=== PATIENT | male | born 1950 | race African-American/Black ===

== ENCOUNTER 2016-12-25 10:42 | Emergency (ER) | payer MEDICAID ==
[~2016-12-25] VITALS: Ht 177.8 cm; Wt 142.9 kg
[~2016-12-25 10:42] MED LIST: 'PARAFON FORTE500 M1 PO; ACTOS45 MG PO; ADVAIR 250/501 EA INH; AMOXICILLIN500 M2 PO; ANAPROX DS550 MG PO; ATORVASTATIN CA10 M1 PO; CATAFLAM50 MG PO; CIPRO500 MG PO; CIPROFLOXACIN500 MG PO; CLARITIN10 MG PO; DARVOCET N 1001 TAB PO; DAYPRO600 M1 PO; DIFLUCAN100 MG PO; ENALAPRIL MALEA10 MG PO; FLAGYL500 MG PO; FUROSEMIDE20 M1 PO; GLUCOPHAGE1000 MG PO; KEFLEX500 MG PO; LANTUS100 U/ML SC; LEVSIN0.125 M1 SL; LOTRISONE 0.05%1 CRE TP; METFORMIN HCL1000 MG PO; MYCOLOG-II 10001 CRE TP; NAPROSYN500 MG PO; NATURE'S BLEN2000 IU PO; NEXIUM40 MG PO; NORCO 10-325 T1 EACH PO; NOVOLIN 70100 UNIT/1 SQ; OMEPRAZOLE D/R20 MG PO; PREDNISONE10 MG PO; PREDNISONE20 MG PO; PROAIR HFA0.09 MG/AC INH; PROAIR HFA8.5 GM IH; Peridex 473 ML473 ML PO; ROBAXIN500 MG PO; ROBAXIN750 MG PO; SINGULAIR10 MG PO; VIBRAMYCIN100 MG PO; ZITHROMAX Z PA250 MG PO; ZITHROMAX250 MG PO
[2016-12-25 10:49] VITALS: BP 180/68
[2016-12-25 11:15] LABS: BASO % 0.5 % (0.0-1.0); EOS # 0.2 10*3/uL (0.0-0.4); EOS % 2.5 % (1.0-4.0); HEMATOCRIT 40.3 % (42.0-52.0); HEMOGLOBIN 13.5 g/dl (14.0-18.0); LYMPH # 2.3 10*3/uL (1.3-4.4); LYMPH % 26.4 % (27.0-41.0); MEAN CELL VOLUME 77.4 fl (80.0-94.0); MEAN CORPUSCULAR HGB 25.9 pg (27.0-31.0); MEAN CORPUSCULAR HGB CONC 33.5 g/dl (33.0-37.0); MONO # 0.9 10*3/uL (0.1-1.0); MONO % 10.8 % (3.0-9.0); NEUT # 5.1 10*3/uL (2.3-7.9); NEUT % 59.6 % (47.0-73.0); PLATELET COUNT AUTOMATED 242 10*3/uL (130-400); RED BLOOD COUNT 5.21 10*6/uL (4.50-5.90); RED CELL DISTRI WIDTH 16.4 % (0-14.5); WHITE BLOOD COUNT 8.6 10*3/uL (4.8-10.8)
[2016-12-25 11:32] LABS: POTASSIUM 4.4 mmol/L (3.5-5.1); TROPONIN I 0.017 ng/ml (<0.045)
[2016-12-25 14:16] LABS: BILIRUBIN NEGATIVE (NEGATIVE); BLOOD TRACE-LYSED (NEGATIVE); CLARITY CLEAR (CLEAR); COLOR YELLOW (YELLOW); GLUCOSE 3+ (NEGATIVE); KETONE NEGATIVE (NEGATIVE); LEUKO ESTERASE NEGATIVE (NEGATIVE); NITRITE NEGATIVE (NEGATIVE); PROTEIN NEGATIVE (NEGATIVE); UROBILINOGEN 0.2 E.U./dl (0.2-1.0)
[2016-12-25 14:23] LABS: BACTERIA TRACE; EPITHELIAL CELLS 0-2; RBC 0-2 rbc/hpf (0-2); URINE REFLEX COMMENT NO (NO)
[2016-12-25] MEDS ORDERED: PREDNISONE20 M1 PO (14:33)
[2016-12-25 14:35] LABS: ALBUMIN 3.1 gm/dl (3.1-4.5); ALKALINE PHOSPHATASE 64 U/L (45-117); BILIRUBIN, DIRECT < 0.1 mg/dL (0.0-0.2); BILIRUBIN, TOTAL 0.2 mg/dl (0.2-1.0); SGOT/AST 18 IU/L (3-35); SGPT/ALT 27 U/L (12-78)
[2016-12-25 14:39] LABS: HEMOGLOBIN A1c 11.4 % (4.8-5.6)
== END 2016-12-25 15:18 | disposition left against medical advice (07) ==
LOC: ED 10:42
PROVIDERS: Emergency Medicine
DX: J44.1 Chronic obstructive pulmonary disease with (acute) exacerbation (principal); N17.9 Acute kidney failure, unspecified; I25.10 Atherosclerotic heart disease of native coronary artery without angina pectoris; E11.65 Type 2 diabetes mellitus with hyperglycemia; Z79.4 Long term (current) use of insulin; Z79.899 Other long term (current) drug therapy

== ENCOUNTER 2017-01-03 09:32 | Inpatient (IN) | payer MEDICAID ==
[~2017-01-03] VITALS: Ht 152.4 cm; Wt 147.5 kg
--- NOTE | ~2017-01-03 | CON ---
[place], [place] REPORT OF CONSULTATION [id number] UNIT #: [id number] ROOM: 522 DOCTOR: AGUS PARKER MD BIRTHDATE: [birth year] DOS: 01/04/2017 PULMONARY CONSULTATION EVALUATION AND MANAGEMENT REQUESTING PHYSICIAN: The consultation requested for this patient by hospitalist services. REASON FOR CONSULTATION: To assess the patient for obstructive sleep apnea disorder. HISTORY OF PRESENT ILLNESS: A 66 years old -Samoan male who has been admitted to the hospital under care of the hospitalist service of the patient on 01/03/2017. The patient has been admitted to the hospital as he has been complaining of symptoms of having increased shortness of breath, which has been ongoing for the past several days and noted chronic shortness of breath for several years as well. He does have mild coughing without any sputum expectoration. The patient does complain of some wheezing as well and tightness in the chest. Denies symptoms of acute chest pain. Denies symptoms of hemoptysis. He had been admitted to the hospital from yesterday and started for the medical management of COPD exacerbation. The patient has a known history of obstructive sleep apnea disorder as well and stated his pressure needs to be raised for this patient for the management of sleep apnea disorder. He has been noted somewhat poor historian and unable to give me all the history more accurately. REVIEW OF SYSTEMS: CONSTITUTIONAL SYMPTOMS: Complaining of symptoms of fatigue and tiredness. Denies fever or chills. EYES: Denies burning, redness, or tenderness. EARS, NOSE, AND THROAT SYMPTOMS: No sore throat, hoarseness, otalgia, postnasal drainage. CARDIOVASCULAR SYSTEM: Denies anginal pain, edema, pain of the lower extremities. GASTROINTESTINAL SYMPTOM: Denies dysphagia, nausea, vomiting, diarrhea, abdominal pain, hematemesis, melena or hematochezia. History of chronic severe obesity noted without any abnormal weight loss. GENITOURINARY SYMPTOM: Denies dysuria, suprapubic pain, hematuria. MUSCULOSKELETAL SYMPTOM: Denies acute joint pain, redness, or tenderness. SKIN: No lesions or rashes. CENTRAL NERVOUS SYSTEM: Denies dizziness, headache, diplopia or seizures. Remaining systems were reviewed with the patient, they were noted all negative. PAST MEDICAL HISTORY: Noted with history of: 1. COPD for this patient. 2. Coronary artery disease. 3. Obstructive sleep apnea disorder. 4. Type 2 diabetes mellitus. 5. Morbid obesity. SOCIAL HISTORY: The patient denies history of alcohol use, tobacco or illicit [place], [place] REPORT OF CONSULTATION NAME: PILO KOROMA UNIT #: [id number] ROOM: 522 DOCTOR: AGUS PARKER MD BIRTHDATE: [birth year] drug use. He is currently and has 2 children. FAMILY HISTORY: Father at the age of 5050 years old, complication of stroke. The mother living, of 87 years old. PAST SURGICAL HISTORY: History of T and A. HOME MEDICATIONS: Listed as use of ProAir HFA inhaler, Lipitor, Parafon Forte, vitamin D, enalapril, NPH insulin, loratadine, metformin, Naproxen, omeprazole, prednisone recent prescription given for this patient for the management of acute respiratory symptom management. DRUG ALLERGY HISTORY: Noted as no known drug allergies. PHYSICAL EXAMINATION: GENERAL: A 66 years old -Samoan male, currently sitting side of bed without any distress. Height of 5 feet 9 inches, weight of , BMI 63.5. VITAL SIGNS: For the patient which has been recorded showed normal temperature, respiratory rate 18-25, heart rate of 97-83, blood pressure 170/90 of the patient 140/80. Intake for the patient is 1000, the output was 700 mL approximately. Pulse ox saturation on room air 94% saturation. HEENT: Examination shows chronic severe obesity. NECK: Supple. Head was atraumatic and neck was severely obese. Severe reduction of posterior pharyngeal space. CARDIOVASCULAR SYSTEM: S1, S2 audible. LUNGS: The patient was noted without any crackles. Mild expiratory wheezing noted in the lungs bilaterally. ABDOMEN: Soft, obese, nontender. EXTREMITIES: Showed chronic obesity without any edema, clubbing or cyanosis. CENTRAL NERVOUS SYSTEM: Cranial nerves 2-12 intact. No focal deficit. MUSCULOSKELETAL SYMPTOM: Does not show any acute deformities. LABORATORY DATA: CBC yesterday of the patient was noted essentially normal CBC except very mild anemia, hemoglobin 13.3. The PT/PTT were noted yesterday as normal. CMP that was done yesterday, BUN 31, creatinine 1.68, glucose 304. Remaining CMP was normal. The chest x-ray, 1 view, which was done yesterday in the Emergency Room of the patient was noted without any acute pulmonary infiltration. CBC this morning: WBC count 11.3, otherwise CBC normal. CMP this morning, BUN 33, creatinine 1.39, glucose 420, chloride of 97. IMPRESSION: 1. The patient who had been currently admitted to the hospital noted failed outpatient treatment for the acute exacerbation of "chronic obstructive pulmonary disease" for this patient or bronchial asthma. Lack of any tobacco use in the past. 2. History of obstructive sleep apnea disorder suboptimally treated for this patient, current CPAP/BiPAP from home. 3. The patient with hyperglycemia. 4. Acute kidney injury of the patient most likely prerenal in origin of the patient noted partial improvement from yesterday. [place], [place] REPORT OF CONSULTATION NAME: PILO KOROMA UNIT #: [id number] ROOM: 522 DOCTOR: AGUS PARKER MD BIRTHDATE: [birth year] 5. History of essential hypertension, diabetes mellitus as well. PLAN OF TREATMENT: Continuation of the bronchodilators, oxygen supplementation, reduction of corticosteroids, bronchodilators. The patient was empirically started on the BiPAP last night. The patient was asked about making a discharge for the patient following discharge from the hospital to make any further adjustment in the management of sleep apnea disorder after that. Other supportive treatment, plan of management at this time to be continued. Usual care, other supportive care and therapy, plan of management. Usual care. Thanks for allowing me to participate in the care of this patient. AGUS JORGE MD CM:CONSTR:REPORT OF CONSULTATION 1252 01/05/17 0144 interface
[~2017-01-03 09:32] MED LIST changes: +PREDNISONE20 M1 PO
[2017-01-03 09:39] VITALS: BP 153/77
[2017-01-03 10:00] LABS: BASO # 0.1 10*3/uL (0.0-0.1); BASO % 0.7 % (0.0-1.0); EOS # 0.2 10*3/uL (0.0-0.4); EOS % 2.9 % (1.0-4.0); HEMOGLOBIN 13.6 g/dl (14.0-18.0); LYMPH # 1.8 10*3/uL (1.3-4.4); LYMPH % 25.1 % (27.0-41.0); MEAN CELL VOLUME 78.8 fl (80.0-94.0); MEAN CORPUSCULAR HGB 26.2 pg (27.0-31.0); MEAN CORPUSCULAR HGB CONC 33.2 g/dl (33.0-37.0); MEAN PLATELET VOLUME 10.7 fl (9.6-12.3); MONO # 0.8 10*3/uL (0.1-1.0); MONO % 11.3 % (3.0-9.0); NEUT # 4.3 10*3/uL (2.3-7.9); NEUT % 59.7 % (47.0-73.0); PLATELET COUNT AUTOMATED 244 10*3/uL (130-400); RED CELL DISTRI WIDTH 16.3 % (0-14.5); WHITE BLOOD COUNT 7.1 10*3/uL (4.8-10.8)
[2017-01-03 10:11] LABS: INTERNATIONAL NORM RATIO 0.9 (2.0-3.5); PROTHROMBIN TIME 9.9 SECONDS (9.0-12.4)
[2017-01-03 10:15] VITALS: BP 150/70
[2017-01-03 10:15] LABS: ALBUMIN 3.3 gm/dl (3.1-4.5); BILIRUBIN, TOTAL 0.2 mg/dl (0.2-1.0); C-REACTIVE PROTEIN 2.99 MG/DL (0-0.3); CKMB 3.9 ng/ml (0.5-3.6); MAGNESIUM 1.9 mg/dL (1.5-2.1); POTASSIUM 4.7 mmol/L (3.5-5.1); TOTAL PROTEIN 7.5 gm/dL (6.4-8.2); TROPONIN I 0.019 ng/ml (<0.045)
[2017-01-03 11:00] VITALS: BP 148/80
[2017-01-03 12:20] VITALS: BP 140/80
[2017-01-03 16:00] VITALS: BP 163/90
[2017-01-03 20:00] VITALS: BP 122/54; BP 135/73
[2017-01-04] VITALS: BP 164/82
[2017-01-04 06:47] LABS: BASO % 0.1 % (0.0-1.0); HEMATOCRIT 43.2 % (42.0-52.0); HEMOGLOBIN 14.4 g/dl (14.0-18.0); IG # 0.1 10*3/uL (0.0-0.1); LYMPH # 1.2 10*3/uL (1.3-4.4); LYMPH % 10.6 % (27.0-41.0); MEAN CELL VOLUME 77.8 fl (80.0-94.0); MEAN CORPUSCULAR HGB 25.9 pg (27.0-31.0); MEAN CORPUSCULAR HGB CONC 33.3 g/dl (33.0-37.0); MEAN PLATELET VOLUME 11.1 fl (9.6-12.3); MONO # 0.6 10*3/uL (0.1-1.0); MONO % 5.7 % (3.0-9.0); NEUT # 9.4 10*3/uL (2.3-7.9); PLATELET COUNT AUTOMATED 290 10*3/uL (130-400); RED BLOOD COUNT 5.55 10*6/uL (4.50-5.90); RED CELL DISTRI WIDTH 16.1 % (0-14.5); WHITE BLOOD COUNT 11.3 10*3/uL (4.8-10.8)
[2017-01-04 07:21] LABS: ALBUMIN 3.6 gm/dl (3.1-4.5); BILIRUBIN, TOTAL 0.3 mg/dl (0.2-1.0); BUN 33 mg/dl (7-24); CARBON DIOXIDE 27 mmol/L (21-32); CHLORIDE 97 mmol/L (98-107); EST GLOM FILT AFRICAN AMERICAN > 60 ml/min; GLUCOSE 420 mg/dL (65-99); MAGNESIUM 2.1 mg/dL (1.5-2.1); PHOSPHOROUS 4.8 mg/dL (2.5-4.9); POTASSIUM 4.7 mmol/L (3.5-5.1); SGOT/AST 14 IU/L (3-35); SGPT/ALT 27 U/L (12-78); SODIUM 136 mmol/L (136-145)
[2017-01-04 07:29] LABS: ALKALINE PHOSPHATASE 68 U/L (45-117); THYROID STIM HORMONE (HS) 0.658 uIU/ml (0.358-4.75)
[2017-01-04 07:31] LABS: PROTHROMBIN TIME 10.1 SECONDS (9.0-12.4)
[2017-01-04 07:41] LABS: VITAMIN D, 25-HYDROXY 34.3 ng/mL (30-100)
[2017-01-04 07:42] LABS: FOLIC ACID 12.29 ng/mL (>5.38)
[2017-01-04 08:42] VITALS: BP 170/90
== END 2017-01-04 12:27 | disposition left against medical advice (07) | DRG 190 ==
LOC: ED 09:32 → 5E 11:54 → EDHOLD 11:54 → 5E 12:35
PROVIDERS: Emergency Medicine; Internal Medicine
DX: J44.1 Chronic obstructive pulmonary disease with (acute) exacerbation (principal); N17.0 Acute kidney failure with tubular necrosis; E44.0 Moderate protein-calorie malnutrition; Z68.44 Body mass index [BMI] 60.0-69.9, adult; E11.65 Type 2 diabetes mellitus with hyperglycemia; N18.3 Chronic kidney disease, stage 3 (moderate); D50.9 Iron deficiency anemia, unspecified; Z53.21 Procedure and treatment not carried out due to patient leaving prior to being seen by health care provider; I25.10 Atherosclerotic heart disease of native coronary artery without angina pectoris; G47.33 Obstructive sleep apnea (adult) (pediatric); E66.01 Morbid (severe) obesity due to excess calories; I25.2 Old myocardial infarction; Z82.3 Family history of stroke; Z83.3 Family history of diabetes mellitus; Z79.84 Long term (current) use of oral hypoglycemic drugs; Z79.899 Other long term (current) drug therapy; Z79.4 Long term (current) use of insulin

== ENCOUNTER 2017-01-19 07:03 | Emergency (ER) | payer MEDICAID ==
[~2017-01-19] VITALS: Ht 172.7 cm; Wt 142.9 kg
[2017-01-19 07:14] VITALS: BP 146/62
[2017-01-19] MEDS ORDERED: GLIMEPIRIDE4 M1 PO (07:16)
== END 2017-01-19 07:49 | disposition home or self-care (01) ==
LOC: ED 07:03
DX: N48.89 Other specified disorders of penis (principal); E11.65 Type 2 diabetes mellitus with hyperglycemia; Z95.1 Presence of aortocoronary bypass graft; J44.9 Chronic obstructive pulmonary disease, unspecified; N18.9 Chronic kidney disease, unspecified; Z79.899 Other long term (current) drug therapy

== ENCOUNTER → 2017-03-16 | Outpatient (CLI) | payer MEDICAID ==
[~2017-03-16] MED LIST changes: +GLIMEPIRIDE4 M1 PO
[2017-03-16 10:50] LABS: BILIRUBIN NEGATIVE (NEGATIVE); BLOOD TRACE-INTACT (NEGATIVE); CLARITY CLEAR (CLEAR); COLOR YELLOW (YELLOW); GLUCOSE 2+ (NEGATIVE); KETONE NEGATIVE (NEGATIVE); LEUKO ESTERASE NEGATIVE (NEGATIVE); NITRITE NEGATIVE (NEGATIVE); PROTEIN TRACE (NEGATIVE); SPECIFIC GRAVITY <= 1.005 (1.005-1.030); UROBILINOGEN 0.2 E.U./dl (0.2-1.0)
[2017-03-16 10:51] LABS: BASO # 0.1 10*3/uL (0.0-0.1); BASO % 0.6 % (0.0-1.0); EOS # 0.2 10*3/uL (0.0-0.4); EOS % 2.3 % (1.0-4.0); HEMATOCRIT 42.2 % (42.0-52.0); HEMOGLOBIN 14.2 g/dl (14.0-18.0); LYMPH # 2.5 10*3/uL (1.3-4.4); LYMPH % 30.6 % (27.0-41.0); MEAN CELL VOLUME 77.1 fl (80.0-94.0); MEAN CORPUSCULAR HGB CONC 33.6 g/dl (33.0-37.0); MEAN PLATELET VOLUME 10.6 fl (9.6-12.3); MONO % 12.1 % (3.0-9.0); NEUT # 4.5 10*3/uL (2.3-7.9); NEUT % 54.2 % (47.0-73.0); PLATELET COUNT AUTOMATED 231 10*3/uL (130-400); RED BLOOD COUNT 5.47 10*6/uL (4.50-5.90); WHITE BLOOD COUNT 8.3 10*3/uL (4.8-10.8)
[2017-03-16 10:58] LABS: URINE TP/CRE RATIO 0.5 (<0.21)
[2017-03-16 11:07] LABS: RBC 0-2 rbc/hpf (0-2); WBC 0-2 wbc/hpf (0-5)
[2017-03-16 11:26] LABS: ALBUMIN 3.5 gm/dl (3.1-4.5); MAGNESIUM 1.7 mg/dL (1.5-2.1); PHOSPHOROUS 3.2 mg/dL (2.5-4.9); POTASSIUM 4.4 mmol/L (3.5-5.1)
[2017-03-16 11:48] LABS: VITAMIN D, 25-HYDROXY 27.1 ng/mL (30-100)
== END | disposition home or self-care (01) ==
LOC: LAB 10:21
PROVIDERS: Internal Medicine Nephrology
DX: E11.22 Type 2 diabetes mellitus with diabetic chronic kidney disease (principal); N18.3 Chronic kidney disease, stage 3 (moderate)

== ENCOUNTER → 2017-07-24 | Outpatient (CLI) | payer MEDICARE ==
[2017-07-24 09:31] LABS: HEMATOCRIT 41.4 % (42.0-52.0); RETICULOCYTE % 2.11 % (0.50-2.50)
[2017-07-24 09:35] LABS: BILIRUBIN NEGATIVE (NEGATIVE); BLOOD 1+ (NEGATIVE); CLARITY CLEAR (CLEAR); COLOR YELLOW (YELLOW); GLUCOSE 1+ (NEGATIVE); KETONE NEGATIVE (NEGATIVE); LEUKO ESTERASE NEGATIVE (NEGATIVE); NITRITE NEGATIVE (NEGATIVE); PH 6.5 (5.0-9.0)
[2017-07-24 09:48] LABS: ALBUMIN 3.2 gm/dl (3.1-4.5); ALKALINE PHOSPHATASE 82 U/L (45-117); BILIRUBIN, DIRECT < 0.1 mg/dL (0.0-0.2); BUN 22 mg/dl (7-24); CHLORIDE 100 mmol/L (98-107); CHOLESTEROL 116 mg/dL (<200); CREATININE 1.41 mg/dL (0.70-1.30); EPITHELIAL CELLS 0-2; HDL CHOLESTEROL 41 mg/dl (40-60); IRON 53 ug/dL (65-175); LDL CHOLESTEROL 46 mg/dL (9-159); POTASSIUM 4.6 mmol/L (3.5-5.1); RBC 0-2 rbc/hpf (0-2); SGOT/AST 26 IU/L (3-35); SGPT/ALT 35 U/L (12-78); SODIUM 138 mmol/L (136-145); TOTAL IRON BINDING CAPACITY 308 ug/dl (250-450); TOTAL PROTEIN 7.7 gm/dL (6.4-8.2); TRIGLYCERIDES 143 mg/dl (<150); VLDL CHOLESTEROL 29 mg/dL (6-40)
[2017-07-24 11:44] LABS: VITAMIN D, 25-HYDROXY 31.9 ng/mL (30-100)
== END ==
LOC: LAB 08:51
PROVIDERS: Internal Medicine
DX: E11.65 Type 2 diabetes mellitus with hyperglycemia (principal); E11.42 Type 2 diabetes mellitus with diabetic polyneuropathy; E55.9 Vitamin D deficiency, unspecified; E78.5 Hyperlipidemia, unspecified; D64.9 Anemia, unspecified

== ENCOUNTER 2017-09-11 13:51 | Inpatient (IN) | payer MEDICARE ==
[~2017-09-11] VITALS: Ht 172.7 cm; Wt 142.1 kg
--- NOTE | ~2017-09-11 | EKG ---
[place], [place] ELECTROCARDIOGRAM REPORT NAME: PILO KOROMA UNIT #: [id number] ROOM: [facility] DOCTOR: YAIMA COATS,ERIKA BIRTHDATE: [birth year] DOS: 09/11/2017 TIME: 1446 hours. IMPRESSION: 1. Sinus rhythm. 2. Baseline artifacts. 3. Nonspecific ST-T changes. 4. Normal QT interval. ERIKA ERWIN MD CM:EKGRPT:ELECTROCARDIOGRAM REPORT 1201 1214 ERIKA ERWIN MD
[2017-09-11 14:26] VITALS: BP 140/66
[2017-09-11 14:50] LABS: BASO % 0.4 % (0.0-1.0); EOS # 0.2 10*3/uL (0.0-0.4); EOS % 2.5 % (1.0-4.0); HEMATOCRIT 40.3 % (42.0-52.0); HEMOGLOBIN 13.4 g/dl (14.0-18.0); LYMPH # 2.1 10*3/uL (1.3-4.4); LYMPH % 28.7 % (27.0-41.0); MEAN CELL VOLUME 76.2 fl (80.0-94.0); MEAN CORPUSCULAR HGB 25.3 pg (27.0-31.0); MEAN CORPUSCULAR HGB CONC 33.3 g/dl (33.0-37.0); MEAN PLATELET VOLUME 11.1 fl (9.6-12.3); MONO # 0.9 10*3/uL (0.1-1.0); MONO % 12.4 % (3.0-9.0); NEUT # 4.1 10*3/uL (2.3-7.9); NEUT % 55.7 % (47.0-73.0); PLATELET COUNT AUTOMATED 227 10*3/uL (130-400); RED BLOOD COUNT 5.29 10*6/uL (4.50-5.90); WHITE BLOOD COUNT 7.3 10*3/uL (4.8-10.8)
[2017-09-11 15:08] LABS: ABG HCO3 28.1 mmol/l (22-26); ARTERIAL BLOOD GAS PCO2 56.1 mmHg (35-45); ARTERIAL BLOOD GAS PH 7.317 (7.35-7.45); ARTERIAL BLOOD GAS PO2 84.9 mmHg (80-90)
[2017-09-11 15:08] LABS: ALKALINE PHOSPHATASE 70 U/L (45-117); BUN 37 mg/dl (7-24); CHLORIDE 99 mmol/L (98-107); CPK 207 U/L (39-308); CREATININE 1.55 mg/dL (0.70-1.30); POTASSIUM 4.5 mmol/L (3.5-5.1); SGOT/AST 21 IU/L (3-35); SGPT/ALT 30 U/L (12-78); SODIUM 135 mmol/L (136-145); TOTAL PROTEIN 7.3 gm/dL (6.4-8.2)
[2017-09-11 15:12] LABS: TROPONIN I < 0.015 ng/ml (<0.045)
[2017-09-11 15:47] LABS: BILIRUBIN NEGATIVE (NEGATIVE); BLOOD TRACE-LYSED (NEGATIVE); CLARITY CLEAR (CLEAR); COLOR YELLOW (YELLOW); GLUCOSE 3+ (NEGATIVE); KETONE NEGATIVE (NEGATIVE); LEUKO ESTERASE NEGATIVE (NEGATIVE); NITRITE NEGATIVE (NEGATIVE); PH 5.5 (5.0-9.0); UROBILINOGEN 0.2 E.U./dl (0.2-1.0)
[2017-09-11 15:59] LABS: BACTERIA TRACE; EPITHELIAL CELLS 0-2; WBC 0-2 wbc/hpf (0-5)
[2017-09-11 18:15] VITALS: BP 142/85
[2017-09-11 20:00] VITALS: BP 156/89
[2017-09-12] VITALS: BP 142/74
[2017-09-12 06:17] LABS: BASO # 0.1 10*3/uL (0.0-0.1); BASO % 0.6 % (0.0-1.0); EOS # 0.2 10*3/uL (0.0-0.4); EOS % 2.2 % (1.0-4.0); HEMATOCRIT 45.3 % (42.0-52.0); HEMOGLOBIN 14.6 g/dl (14.0-18.0); LYMPH # 2.2 10*3/uL (1.3-4.4); MEAN CELL VOLUME 77.4 fl (80.0-94.0); MEAN CORPUSCULAR HGB CONC 32.2 g/dl (33.0-37.0); MEAN PLATELET VOLUME 11.3 fl (9.6-12.3); MONO # 1.2 10*3/uL (0.1-1.0); NEUT # 4.6 10*3/uL (2.3-7.9); PLATELET COUNT AUTOMATED 248 10*3/uL (130-400); RED BLOOD COUNT 5.85 10*6/uL (4.50-5.90); RED CELL DISTRI WIDTH 17.9 % (0-14.5); WHITE BLOOD COUNT 8.3 10*3/uL (4.8-10.8)
[2017-09-12 06:30] LABS: BUN 33 mg/dl (7-24); CHLORIDE 100 mmol/L (98-107); CHOLESTEROL 166 mg/dL (<200); CREATININE 1.42 mg/dL (0.70-1.30); PHOSPHOROUS 4.5 mg/dL (2.5-4.9); POTASSIUM 4.7 mmol/L (3.5-5.1); SODIUM 138 mmol/L (136-145); TRIGLYCERIDES 147 mg/dl (<150); VLDL CHOLESTEROL 29 mg/dL (6-40)
[2017-09-12 06:40] LABS: HDL CHOLESTEROL 54 mg/dl (40-60); LDL CHOLESTEROL 83 mg/dL (9-159)
[2017-09-12 08:00] VITALS: BP 126/88
[2017-09-12 08:33] LABS: VITAMIN D, 25-HYDROXY 29.1 ng/mL (30-100)
[2017-09-12 12:00] VITALS: BP 106/84
[2017-09-12 16:00] VITALS: BP 157/74
[2017-09-12 20:00] VITALS: BP 151/72
[2017-09-13] VITALS: BP 115/60
[2017-09-13 08:00] VITALS: BP 145/75
[2017-09-13] MEDS ORDERED: NOVOLOG MI100 UNIT/2 SQ ×2 (14:27→14:28)
[2017-09-13] MEDS ORDERED: NORVASC2.5 MG PO (14:29)
[2017-09-13] MEDS ORDERED: JANUVIA100 MG PO (14:30)
[2017-09-13 16:00] VITALS: BP 126/65
[2017-09-13 20:00] VITALS: BP 141/88
[2017-09-14] VITALS: BP 104/70
== END 2017-09-14 05:18 | disposition left against medical advice (07) | DRG 292 ==
LOC: ED 13:51 → EDHOLD 16:24 → 4E 16:24
PROVIDERS: Internal Medicine Nephrology; Nurse Practitioner Family
DX: I50.33 Acute on chronic diastolic (congestive) heart failure (principal); E44.0 Moderate protein-calorie malnutrition; E11.22 Type 2 diabetes mellitus with diabetic chronic kidney disease; E11.65 Type 2 diabetes mellitus with hyperglycemia; E87.1 Hypo-osmolality and hyponatremia; Z68.42 Body mass index [BMI] 45.0-49.9, adult; E66.01 Morbid (severe) obesity due to excess calories; J44.9 Chronic obstructive pulmonary disease, unspecified; D50.9 Iron deficiency anemia, unspecified; D72.821 Monocytosis (symptomatic); I25.10 Atherosclerotic heart disease of native coronary artery without angina pectoris; N18.3 Chronic kidney disease, stage 3 (moderate); E55.9 Vitamin D deficiency, unspecified; Z53.21 Procedure and treatment not carried out due to patient leaving prior to being seen by health care provider; Z99.81 Dependence on supplemental oxygen; I25.2 Old myocardial infarction; Z90.89 Acquired absence of other organs; Z83.3 Family history of diabetes mellitus; Z82.3 Family history of stroke; Z79.4 Long term (current) use of insulin; Z79.899 Other long term (current) drug therapy

== ENCOUNTER → 2017-09-21 | Outpatient (CLI) | payer MEDICARE ==
[~2017-09-21] MED LIST changes: +JANUVIA100 MG PO; +NORVASC2.5 MG PO; +NOVOLOG MI100 UNIT/2 SQ
[2017-09-21 15:48] LABS: BASO % 0.4 % (0.0-1.0); EOS # 0.2 10*3/uL (0.0-0.4); EOS % 1.9 % (1.0-4.0); HEMATOCRIT 42.4 % (42.0-52.0); HEMOGLOBIN 13.9 g/dl (14.0-18.0); LYMPH # 2.5 10*3/uL (1.3-4.4); LYMPH % 26.5 % (27.0-41.0); MEAN CELL VOLUME 77.8 fl (80.0-94.0); MEAN CORPUSCULAR HGB 25.5 pg (27.0-31.0); MEAN CORPUSCULAR HGB CONC 32.8 g/dl (33.0-37.0); MEAN PLATELET VOLUME 10.6 fl (9.6-12.3); MONO # 0.9 10*3/uL (0.1-1.0); MONO % 9.6 % (3.0-9.0); NEUT # 5.7 10*3/uL (2.3-7.9); NEUT % 61.3 % (47.0-73.0); PLATELET COUNT AUTOMATED 255 10*3/uL (130-400); RED BLOOD COUNT 5.45 10*6/uL (4.50-5.90); RED CELL DISTRI WIDTH 17.2 % (0-14.5); WHITE BLOOD COUNT 9.4 10*3/uL (4.8-10.8)
[2017-09-21 15:56] LABS: URINE CREATININE RANDOM 41.4 mg/dL
[2017-09-21 16:00] LABS: ALBUMIN 3.2 gm/dl (3.1-4.5); BUN 29 mg/dl (7-24); CHLORIDE 97 mmol/L (98-107); PHOSPHOROUS 3.4 mg/dL (2.5-4.9); POTASSIUM 4.5 mmol/L (3.5-5.1); SODIUM 136 mmol/L (136-145)
[2017-09-21 16:05] LABS: BILIRUBIN NEGATIVE (NEGATIVE); BLOOD TRACE-INTACT (NEGATIVE); CLARITY CLEAR (CLEAR); COLOR YELLOW (YELLOW); GLUCOSE TRACE (NEGATIVE); KETONE NEGATIVE (NEGATIVE); LEUKO ESTERASE NEGATIVE (NEGATIVE); NITRITE NEGATIVE (NEGATIVE); SPECIFIC GRAVITY <= 1.005 (1.005-1.030); UROBILINOGEN 0.2 E.U./dl (0.2-1.0)
[2017-09-21 16:29] LABS: RBC 0-2 rbc/hpf (0-2); WBC 0-2 wbc/hpf (0-5)
[2017-09-21 16:32] LABS: VITAMIN D, 25-HYDROXY 24.1 ng/mL (30-100)
== END | disposition home or self-care (01) ==
LOC: LAB 14:59
PROVIDERS: Internal Medicine Nephrology
DX: N18.3 Chronic kidney disease, stage 3 (moderate) (principal); N25.81 Secondary hyperparathyroidism of renal origin; E55.9 Vitamin D deficiency, unspecified

== ENCOUNTER 2017-10-02 16:55 | Inpatient (IN) | payer MEDICARE ==
[~2017-10-02] VITALS: Ht 170.1 cm; Wt 148.8 kg
[2017-10-02 17:09] VITALS: BP 183/89
[2017-10-02 17:32] VITALS: BP 173/76
[2017-10-02 18:30] LABS: BASO # 0.1 10*3/uL (0.0-0.1); BASO % 0.5 % (0.0-1.0); EOS # 0.3 10*3/uL (0.0-0.4); EOS % 2.5 % (1.0-4.0); HEMATOCRIT 43.7 % (42.0-52.0); HEMOGLOBIN 14.2 g/dl (14.0-18.0); LYMPH # 2.2 10*3/uL (1.3-4.4); LYMPH % 21.9 % (27.0-41.0); MEAN CELL VOLUME 76.9 fl (80.0-94.0); MEAN CORPUSCULAR HGB CONC 32.5 g/dl (33.0-37.0); MEAN PLATELET VOLUME 10.6 fl (9.6-12.3); MONO % 9.8 % (3.0-9.0); NEUT # 6.6 10*3/uL (2.3-7.9); NEUT % 65.1 % (47.0-73.0); PLATELET COUNT AUTOMATED 230 10*3/uL (130-400); RED BLOOD COUNT 5.68 10*6/uL (4.50-5.90); WHITE BLOOD COUNT 10.1 10*3/uL (4.8-10.8)
[2017-10-02 18:41] LABS: BILIRUBIN NEGATIVE (NEGATIVE); BLOOD 1+ (NEGATIVE); CLARITY CLEAR (CLEAR); COLOR YELLOW (YELLOW); GLUCOSE NEGATIVE (NEGATIVE); KETONE NEGATIVE (NEGATIVE); LEUKO ESTERASE NEGATIVE (NEGATIVE); NITRITE NEGATIVE (NEGATIVE); PH 5.5 (5.0-9.0); UROBILINOGEN 0.2 E.U./dl (0.2-1.0)
[2017-10-02 18:46] LABS: BACTERIA TRACE; WBC 0-2 wbc/hpf (0-5)
[2017-10-02 18:50] LABS: ALBUMIN 3.3 gm/dl (3.1-4.5); CREATININE 1.46 mg/dL (0.70-1.30); TOTAL PROTEIN 7.7 gm/dL (6.4-8.2)
[2017-10-02 19:09] VITALS: BP 173/72
[2017-10-02 20:05] VITALS: BP 162/72
[2017-10-02] MEDS ORDERED: ZITHROMAX250 MG PO (20:05)
[2017-10-02] MEDS ORDERED: PREDNISONE20 M1 PO (20:05)
[2017-10-02 21:25] VITALS: BP 147/58
[2017-10-03] VITALS: BP 121/73
[2017-10-03 07:18] LABS: BASO % 0.1 % (0.0-1.0); HEMATOCRIT 44.1 % (42.0-52.0); HEMOGLOBIN 14.6 g/dl (14.0-18.0); LYMPH % 13.3 % (27.0-41.0); MEAN CELL VOLUME 77.6 fl (80.0-94.0); MEAN CORPUSCULAR HGB 25.7 pg (27.0-31.0); MEAN CORPUSCULAR HGB CONC 33.1 g/dl (33.0-37.0); MONO # 0.1 10*3/uL (0.1-1.0); MONO % 1.6 % (3.0-9.0); NEUT # 6.3 10*3/uL (2.3-7.9); NEUT % 84.6 % (47.0-73.0); PLATELET COUNT AUTOMATED 254 10*3/uL (130-400); RED BLOOD COUNT 5.68 10*6/uL (4.50-5.90); RED CELL DISTRI WIDTH 18.1 % (0-14.5); WHITE BLOOD COUNT 7.4 10*3/uL (4.8-10.8)
[2017-10-03 07:50] LABS: BUN 26 mg/dl (7-24); CHLORIDE 99 mmol/L (98-107); CHOLESTEROL 155 mg/dL (<200); CREATININE 1.43 mg/dL (0.70-1.30); HDL CHOLESTEROL 67 mg/dl (40-60); LDL CHOLESTEROL 78 mg/dL (9-159); POTASSIUM 4.8 mmol/L (3.5-5.1); SODIUM 137 mmol/L (136-145); TRIGLYCERIDES 50 mg/dl (<150); VLDL CHOLESTEROL 10 mg/dL (6-40)
[2017-10-03 07:53] LABS: ACT PARTIAL THROMBO TIME 32.7 SECONDS (20.8-31.5)
[2017-10-03 08:00] VITALS: BP 150/66
[2017-10-03 08:23] LABS: VITAMIN D, 25-HYDROXY 23.4 ng/mL (30-100)
[2017-10-03] MEDS ORDERED: OMEPRAZOLE D/R20 MG PO (09:37)
[2017-10-03] MEDS ORDERED: NOVOLOG MI100 UNIT/1 SQ (09:42)
[2017-10-03] MEDS ORDERED: AMARYL4 MG PO (09:44)
[2017-10-03] MEDS ORDERED: TRAD5TAB1 PO (09:45)
[2017-10-03] MEDS ORDERED: TRULICITY1.5 MG/0.5 SC (09:47)
[2017-10-03] MEDS ORDERED: FOLGARD TABLET1 EACH PO (09:49)
[2017-10-03 12:00] VITALS: BP 170/83
[2017-10-03 16:00] VITALS: BP 127/82
== END 2017-10-03 19:53 | disposition left against medical advice (07) | DRG 291 ==
LOC: ED 16:55 → EDHOLD 20:34 → 4E 20:34
PROVIDERS: Internal Medicine; Nurse Practitioner
DX: I50.33 Acute on chronic diastolic (congestive) heart failure (principal); J96.20 Acute and chronic respiratory failure, unspecified whether with hypoxia or hypercapnia; J44.1 Chronic obstructive pulmonary disease with (acute) exacerbation; Z68.43 Body mass index [BMI] 50.0-59.9, adult; E66.01 Morbid (severe) obesity due to excess calories; E11.65 Type 2 diabetes mellitus with hyperglycemia; Z53.21 Procedure and treatment not carried out due to patient leaving prior to being seen by health care provider; D50.9 Iron deficiency anemia, unspecified; G47.33 Obstructive sleep apnea (adult) (pediatric); R10.30 Lower abdominal pain, unspecified; I25.10 Atherosclerotic heart disease of native coronary artery without angina pectoris; I25.2 Old myocardial infarction; Z83.3 Family history of diabetes mellitus; Z82.3 Family history of stroke; Z90.49 Acquired absence of other specified parts of digestive tract; Z79.899 Other long term (current) drug therapy

== ENCOUNTER 2017-10-11 14:09 | Inpatient (IN) | payer MEDICARE ==
[~2017-10-11] VITALS: Ht 152.4 cm; Wt 142.6 kg
[~2017-10-11 14:09] MED LIST changes: +AMARYL4 MG PO; +FOLGARD TABLET1 EACH PO; +NOVOLOG MI100 UNIT/1 SQ; +TRAD5TAB1 PO; +TRULICITY1.5 MG/0.5 SC
[2017-10-11 14:15] VITALS: BP 155/75
[2017-10-11 14:37] LABS: BASO # 0.1 10*3/uL (0.0-0.1); BASO % 0.7 % (0.0-1.0); EOS # 0.3 10*3/uL (0.0-0.4); EOS % 3.5 % (1.0-4.0); HEMATOCRIT 44.6 % (42.0-52.0); HEMOGLOBIN 14.6 g/dl (14.0-18.0); LYMPH # 2.6 10*3/uL (1.3-4.4); LYMPH % 29.5 % (27.0-41.0); MEAN CELL VOLUME 77.3 fl (80.0-94.0); MEAN CORPUSCULAR HGB 25.3 pg (27.0-31.0); MEAN CORPUSCULAR HGB CONC 32.7 g/dl (33.0-37.0); MEAN PLATELET VOLUME 10.1 fl (9.6-12.3); MONO % 11.9 % (3.0-9.0); NEUT # 4.7 10*3/uL (2.3-7.9); NEUT % 53.9 % (47.0-73.0); PLATELET COUNT AUTOMATED 258 10*3/uL (130-400); RED BLOOD COUNT 5.77 10*6/uL (4.50-5.90); RED CELL DISTRI WIDTH 18.5 % (0-14.5); WHITE BLOOD COUNT 8.8 10*3/uL (4.8-10.8)
[2017-10-11 14:44] VITALS: BP 156/80
[2017-10-11 14:47] LABS: ACT PARTIAL THROMBO TIME 28.8 SECONDS (20.8-31.5); INTERNATIONAL NORM RATIO 0.9 (2.0-3.5)
[2017-10-11 14:52] LABS: ALBUMIN 3.4 gm/dl (3.1-4.5); ALKALINE PHOSPHATASE 72 U/L (45-117); BUN 25 mg/dl (7-24); CHLORIDE 99 mmol/L (98-107); CREATININE 1.28 mg/dL (0.70-1.30); LIPASE 103 U/L (73-393); POTASSIUM 4.3 mmol/L (3.5-5.1); SGOT/AST 19 IU/L (3-35); SGPT/ALT 26 U/L (12-78); SODIUM 137 mmol/L (136-145); TOTAL PROTEIN 7.9 gm/dL (6.4-8.2)
[2017-10-11 16:00] VITALS: BP 155/75
[2017-10-11 16:47] VITALS: BP 140/73
[2017-10-11] MEDS ORDERED: GLIMEPIRIDE4 M1 PO (16:59)
[2017-10-11] MEDS ORDERED: BYDUREON2 M1 SQ (17:09)
[2017-10-11] MEDS ORDERED: HUMULIN R500 UNIT/1 SQ (17:12)
[2017-10-11 20:00] VITALS: BP 146/74
[2017-10-12] VITALS: BP 127/88
[2017-10-12 06:55] LABS: BASO % 0.1 % (0.0-1.0); HEMATOCRIT 42.5 % (42.0-52.0); HEMOGLOBIN 14.1 g/dl (14.0-18.0); LYMPH # 1.4 10*3/uL (1.3-4.4); LYMPH % 13.8 % (27.0-41.0); MEAN CELL VOLUME 75.4 fl (80.0-94.0); MEAN CORPUSCULAR HGB CONC 33.2 g/dl (33.0-37.0); MEAN PLATELET VOLUME 10.8 fl (9.6-12.3); MONO # 0.5 10*3/uL (0.1-1.0); MONO % 4.4 % (3.0-9.0); NEUT # 8.5 10*3/uL (2.3-7.9); NEUT % 81.2 % (47.0-73.0); PLATELET COUNT AUTOMATED 266 10*3/uL (130-400); RED BLOOD COUNT 5.64 10*6/uL (4.50-5.90); RED CELL DISTRI WIDTH 17.5 % (0-14.5); WHITE BLOOD COUNT 10.4 10*3/uL (4.8-10.8)
[2017-10-12 07:15] LABS: BUN 27 mg/dl (7-24); CHLORIDE 96 mmol/L (98-107); PHOSPHOROUS 4.6 mg/dL (2.5-4.9); POTASSIUM 4.5 mmol/L (3.5-5.1); SODIUM 137 mmol/L (136-145)
[2017-10-12 08:00] VITALS: BP 137/66
[2017-10-12 12:00] VITALS: BP 153/85
[2017-10-12 15:53] VITALS: BP 159/89
[2017-10-12 20:00] VITALS: BP 148/80
[2017-10-13] VITALS: BP 150/103
[2017-10-13 00:38] VITALS: BP 126/80
[2017-10-13 08:00] VITALS: BP 136/83
[2017-10-13 08:39] LABS: BUN 27 mg/dl (7-24); CHLORIDE 94 mmol/L (98-107); CREATININE 1.37 mg/dL (0.70-1.30); POTASSIUM 4.2 mmol/L (3.5-5.1); SODIUM 135 mmol/L (136-145)
[2017-10-13 12:00] VITALS: BP 142/72
[2017-10-13 16:00] VITALS: BP 131/60
[2017-10-13 20:00] VITALS: BP 131/70
[2017-10-14] VITALS: BP 113/54
[2017-10-14 08:00] VITALS: BP 130/50
[2017-10-14 08:00] LABS: CREATININE 1.49 mg/dL (0.70-1.30); POTASSIUM 4.2 mmol/L (3.5-5.1)
[2017-10-14] MEDS ORDERED: LISINOPRIL10 M1 PO (10:01)
== END 2017-10-14 10:27 | disposition home or self-care (01) | DRG 291 ==
LOC: ED 14:09 → 4E 16:02
PROVIDERS: Internal Medicine Hospice and Palliative Medicine; Nurse Practitioner Family; Student in an Organized Health Care Education/Training Program
PROC: 5A09357 Assistance with Respiratory Ventilation, Less than 24 Consecutive Hours, Continuous Positive Airway Pressure (ICD-10-PCS; principal; 2017-10-12)
PROC: 5A09357 Assistance with Respiratory Ventilation, Less than 24 Consecutive Hours, Continuous Positive Airway Pressure (ICD-10-PCS; 2017-10-14)
DX: I13.0 Hypertensive heart and chronic kidney disease with heart failure and stage 1 through stage 4 chronic kidney disease, or unspecified chronic kidney disease (principal); I50.33 Acute on chronic diastolic (congestive) heart failure; J96.01 Acute respiratory failure with hypoxia; R65.11 Systemic inflammatory response syndrome (SIRS) of non-infectious origin with acute organ dysfunction; E87.2 Acidosis; Z68.44 Body mass index [BMI] 60.0-69.9, adult; I25.10 Atherosclerotic heart disease of native coronary artery without angina pectoris; E11.22 Type 2 diabetes mellitus with diabetic chronic kidney disease; E55.9 Vitamin D deficiency, unspecified; E87.8 Other disorders of electrolyte and fluid balance, not elsewhere classified; D72.810 Lymphocytopenia; E11.65 Type 2 diabetes mellitus with hyperglycemia; N18.3 Chronic kidney disease, stage 3 (moderate); J44.9 Chronic obstructive pulmonary disease, unspecified; K21.9 Gastro-esophageal reflux disease without esophagitis; G47.33 Obstructive sleep apnea (adult) (pediatric); E78.00 Pure hypercholesterolemia, unspecified; E66.01 Morbid (severe) obesity due to excess calories; Z79.4 Long term (current) use of insulin; Z79.899 Other long term (current) drug therapy; I25.2 Old myocardial infarction; Z82.3 Family history of stroke; Z83.3 Family history of diabetes mellitus

== ENCOUNTER → 2017-10-27 | Outpatient (CLI) | payer MEDICARE ==
[~2017-10-27] MED LIST changes: +BYDUREON2 M1 SQ; +HUMULIN R500 UNIT/1 SQ; +LISINOPRIL10 M1 PO
== END | disposition home or self-care (01) ==
LOC: RAD 10:14
DX: I51.7 Cardiomegaly (principal); J11.1 Influenza due to unidentified influenza virus with other respiratory manifestations; J44.9 Chronic obstructive pulmonary disease, unspecified; I50.9 Heart failure, unspecified; I25.2 Old myocardial infarction

== ENCOUNTER → 2017-11-02 | Outpatient (CLI) | payer MEDICARE ==
[2017-11-02 13:14] LABS: BILIRUBIN NEGATIVE (NEGATIVE); BLOOD TRACE-LYSED (NEGATIVE); CLARITY CLEAR (CLEAR); COLOR YELLOW (YELLOW); GLUCOSE NEGATIVE (NEGATIVE); KETONE NEGATIVE (NEGATIVE); LEUKO ESTERASE NEGATIVE (NEGATIVE); NITRITE NEGATIVE (NEGATIVE); PH 5.5 (5.0-9.0); UROBILINOGEN 0.2 E.U./dl (0.2-1.0)
[2017-11-02 13:52] LABS: ALBUMIN 3.3 gm/dl (3.1-4.5); ALKALINE PHOSPHATASE 67 U/L (45-117); BILIRUBIN, DIRECT < 0.1 mg/dL (0.0-0.2); BUN 42 mg/dl (7-24); CHLORIDE 97 mmol/L (98-107); CHOLESTEROL 188 mg/dL (<200); CREATININE 1.53 mg/dL (0.70-1.30); HDL CHOLESTEROL 61 mg/dl (40-60); LDL CHOLESTEROL 69 mg/dL (9-159); SGOT/AST 19 IU/L (3-35); SGPT/ALT 28 U/L (12-78); SODIUM 136 mmol/L (136-145); TOTAL PROTEIN 7.3 gm/dL (6.4-8.2); TRIGLYCERIDES 288 mg/dl (<150); VLDL CHOLESTEROL 58 mg/dL (6-40)
[2017-11-02 14:05] LABS: BACTERIA TRACE; EPITHELIAL CELLS 0-2; WBC 0-2 wbc/hpf (0-5)
== END | disposition home or self-care (01) ==
LOC: LAB 12:50
PROVIDERS: Internal Medicine
DX: E11.65 Type 2 diabetes mellitus with hyperglycemia (principal); E55.9 Vitamin D deficiency, unspecified; E78.5 Hyperlipidemia, unspecified

== ENCOUNTER 2017-12-15 02:00 | Inpatient (IN) | payer MEDICARE ==
[~2017-12-15] VITALS: Ht 170.2 cm; Wt 141.2 kg
--- NOTE | ~2017-12-15 | PR ---
[place], [place] PROGRESS NOTE NAME: PILO KOROMA UNIT #: [id number] ROOM: 517 DOCTOR: ERIKA ERWIN MD BIRTHDATE: [birth year] DOS: 12/21/2017 REASON FOR VISIT: CHF and hypertension. SUBJECTIVE: The patient is feeling better. His shortness of breath is much improved. He is ambulating with mild shortness of breath and he is anticipating discharge. No chest pain, palpitations. No PND, orthopnea. REVIEW OF SYSTEMS: Review of the 8 systems negative except as mentioned above. RHYTHM STRIPS: The patient in sinus rhythm. PHYSICAL EXAMINATION: VITAL SIGNS: Blood pressure 126/73, pulse 77, respiratory rate is 20. Weight 141.1 kilos. GENERAL: Alert, comfortable, in no acute distress. NECK: Supple, no distended neck veins, no carotid bruit. CHEST: Symmetrical, nontender. LUNGS: A few rhonchi and diminished at bases. HEART: Regular rhythm, no S3. Grade 1/6 systolic murmur. ABDOMEN: Morbidly obese. Bowel sounds normal. EXTREMITIES: Showed 1+ edema. NEUROLOGIC: The patient is wearing compression stockings. Distal pulses are fair. Medications and labs reviewed. Creatinine 1.7. IMPRESSION: 1. Pulmonary edema, resolved. 2. Chronic diastolic heart failure. 3. Hypertension. 4. Morbid obesity. 5. Chronic kidney disease. 6. Chronic respiratory failure, on home oxygen as well as BiPAP. RECOMMENDATIONS: 1. Change his Lasix to p.o. 2. He can be discharged from the cardiac standpoint on his current cardiac medications as per risk factor modification. For activity, as tolerated. Diet and weight loss discussed. 3. There is no family at bedside at the time of my examination. [place], [place] PROGRESS NOTE NAME: PILO KOROMA UNIT #: [id number] ROOM: 517 DOCTOR: ERIKA ERWIN MD BIRTHDATE: [birth year] ERIKA ERWIN MD CM:PNTRANS [id number] ERIKA ERWIN MD 12/22/17 2140 interface
--- NOTE | ~2017-12-15 | PR ---
[place], [place] PROGRESS NOTE NAME: PILO KOROMA UNIT #: [id number] ROOM: 517 DOCTOR: ERIKA ERWIN MD BIRTHDATE: [birth year] DOS: 12/19/2017 REASON FOR VISIT: CHF. SUBJECTIVE: The patient is feeling better, still slightly short of breath. Denies any PND or orthopnea. Edema is slightly better. No chest pains, no dizziness. No fever and chills. REVIEW OF SYSTEMS: Review of the 8 systems negative except as mentioned above. RHYTHM STRIPS: Patient is in sinus rhythm. PHYSICAL EXAMINATION: VITAL SIGNS: Blood pressure 121/83, pulse 79, respiratory rate 20, weight 145 kilos. GENERAL: The patient is alert, comfortable, in no acute distress. HEENT: Pupils are round and equal. No jaundice. NECK: Supple. No distended neck veins, no carotid bruit. CHEST: Symmetrical, nontender. LUNGS: Few scattered rhonchi. Good air entry bilaterally. HEART: Regular rhythm. No S3. Grade 1/6 systolic murmur. ABDOMEN: Morbidly obese. Bowel sounds normal. EXTREMITIES: Showed 1+ edema. The patient had a dressing to both lower extremities. Distal pulses are fair. SKIN: Warm and dry. MEDICATIONS AND ALLERGIES: Reviewed. LABORATORY DATA: Hemoglobin 13.2, creatinine 1.4. IMPRESSION: 1. Acute pulmonary edema, resolved. 2. Hypertension, stable. 3. Chronic respiratory failure, with home oxygen. 4. Morbid obesity. 5. Chronic kidney disease. 6. Hypertension. RECOMMENDATIONS: 1. Continue current medications. 2. Possibly can be discharged home in the next 24 hours. 3. There is no family at bedside at the time of my examination. [place], [place] PROGRESS NOTE NAME: PILO KOROMA UNIT #: [id number] ROOM: 517 DOCTOR: ERIKA ERWIN MD BIRTHDATE: [birth year] ERIKA ERWIN MD CM:PNTRANS [id number] ERIKA ERWIN MD 12/20/17 1100 interface
--- NOTE | ~2017-12-15 | CON ---
[place], [place] REPORT OF CONSULTATION NAME: PILO KOROMA UNIT #: [id number] ROOM: 517 DOCTOR: YAIMA COATSCRISTINOBHARGAV BIRTHDATE: [birth year] DOS: 12/17/2017 REASON FOR CONSULTATION: Pulmonary edema. HISTORY OF PRESENT ILLNESS: The patient is a 67-year-old gentleman with a history of diastolic heart failure, hypertension, morbid obesity, chronic kidney disease, admitted due to his edema, has a shortness of breath. The patient is somewhat difficult to understand, but I was able to get adequate information from him. He is complaining of progressive lower extremity edema and also noted to have some blister on his right leg and also having intermittent falls for the past several months. Last fall was about 6 weeks ago. He also complains of mild shortness of breath, but no chest pain, palpitations. No PND, no orthopnea, no fever and chills. No nausea, vomiting, diarrhea. No palpitations. No neurologic symptoms. No dizziness, no visual symptoms. No genitourinary symptoms. He does use CPAP at home for his sleep apnea and also on home oxygen. The patient admitted for pulmonary and cardiology consult for further recommendations. Currently, patient is alert. Denies any chest pain and breathing is much better. REVIEW OF SYSTEMS: Review of the 10 system negative except as mentioned above, especially patient denies any chest pain, palpitations, or PND. No orthopnea, no fever and chills. PAST MEDICAL HISTORY: 1. Chronic diastolic heart failure. 2. Coronary artery disease. 3. Chronic kidney disease. 4. Hypertension. 5. Dyslipidemia. 6. Morbid obesity. 7. Diabetes type 2. 8. Obstructive sleep apnea. 9. Lower extremity edema. 10. Vitamin D deficiency. 11. COPD. PAST SURGICAL HISTORY: Cholecystectomy, tonsillectomy and adenoidectomy. SOCIAL HISTORY: The patient does not smoke or drink, does not use illicit drugs. FAMILY HISTORY: Father at age of 50 from stroke. Mother has diabetes. ALLERGIES: No known drug allergies. HOME MEDICATIONS: Reviewed. PHYSICAL EXAMINATION: VITAL SIGNS: Blood pressure 135/58, pulse 81, respiration is 20, weight 284 kilos, with BMI 50.5. [place], [place] REPORT OF CONSULTATION NAME: PILO KOROMA UNIT #: [id number] ROOM: [facility] DOCTOR: YAIMA COATS,ERIKA BIRTHDATE: [birth year] REVIEW OF THE DIAGNOSTIC TESTS: EKG showed normal sinus rhythm. There is some anterior ST elevation, possibly early repolarization versus pericarditis. Pertinent labs include creatinine 1.84, hemoglobin 13.7. Troponin I was negative. IMAGING STUDIES: Reviewed. Echo from August 2017 showed normal LV function, EF 55%, LV hypertrophy, diastolic dysfunction. IMPRESSION: 1. Acute pulmonary edema, improving. 2. Hypertension. 3. LV hypertrophy. 4. Chronic kidney disease. 5. Morbid obesity. 6. Obstructive sleep apnea. 7. Dyslipidemia. 8. Home oxygen. RECOMMENDATIONS: Continue diuretics and monitor his daily weights, ins and outs and renal function. The patient counseled for gradual weight loss. His blood pressure and heart rates are stable. A 2D echo from August 2017 reviewed. No further cardiac test and echo at this time. Adjust the diuretics based on his response, blood pressures and renal function. There is no family at bedside at the time of examination. ERIKA ERWIN MD CM:CONSTR:REPORT OF CONSULTATION 1626 12/18/17 0448 interface
--- NOTE | ~2017-12-15 | PR ---
[place], [place] PROGRESS NOTE NAME: PILO KOROMA UNIT #: [id number] ROOM: 517 DOCTOR: ERIKA ERWIN MD BIRTHDATE: [birth year] DOS: 12/18/2017 REASON FOR VISIT: Pulmonary edema. HISTORY OF PRESENT ILLNESS: The patient is feeling somewhat better, still short of breath. Denies any chest pain or PND. No orthopnea. Edema is slightly better. REVIEW OF SYSTEMS: Review of the 8 systems negative except as mentioned above. RHYTHM STRIPS: The patient is in sinus rhythm. PHYSICAL EXAMINATION: VITAL SIGNS: Blood pressure 152/78, pulse 88 and respiration is 20. Weight 284 kilos. GENERAL: Alert, comfortable, in no acute distress. HEENT: Pupils are equal, no jaundice. Tongue was moist. NECK: Supple, no distended neck veins, no carotid bruit. CHEST: Symmetrical, nontender. LUNGS: Few rhonchi and diminished at bases. HEART: Regular rhythm, no S3. ABDOMEN: Morbidly obese. Bowel sounds normal. EXTREMITIES: Showed 1+ edema. The patient had both legs wrapped with dressing. Distal pulses are fair. IMPRESSIONS: 1. Acute pulmonary edema, improving. 2. Chronic respiratory failure, home oxygen. 3. Chronic diastolic heart failure. 4. Hypertension. 5. Chronic kidney disease. 6. Morbid obesity. 7. Moderate left ventricular hypertrophy. RECOMMENDATIONS: 1. Continue current medications. 2. Monitor the heart rate and blood pressures and adjust the medications as needed. 3. Risk factor modification for diet and weight loss discussed. There is no family at bedside at the time of examination. [place], [place] PROGRESS NOTE NAME: PILO KOROMA UNIT #: [id number] ROOM: 517 DOCTOR: ERIKA ERWIN MD BIRTHDATE: [birth year] ERIKA ERWIN MD CM:PNTRANS 0023 5 ERIKA ERWIN MD 12/19/17105 interface
--- NOTE | ~2017-12-15 | PR ---
[place], [place] PROGRESS NOTE NAME: PILO KOROMA Maria R UNIT #: [id number] ROOM: 517 DOCTOR: ERIKA ERWIN MD BIRTHDATE: [birth year] DOS: 12/20/2017 REASON FOR VISIT: CHF and hypertension. HISTORY OF PRESENT ILLNESS: The patient is more comfortable, no acute distress. Still mild short of breath, but better than of admission. Denies any fever or chills. No PND, no orthopnea. No nausea, vomiting, diarrhea, no palpitations. REVIEW OF SYSTEMS: Review of the 8 systems negative except as mentioned above. RHYTHM STRIPS: The patient in sinus rhythm. PHYSICAL EXAMINATION: VITAL SIGNS: Blood pressure 116/53, pulse 80, respiratory rate 20. GENERAL: Alert, comfortable, in no acute distress, wanted to go home. HEENT: Pupils are equal, no jaundice. NECK: Supple, no distended neck veins, no carotid bruit. CHEST: Symmetrical, nontender. LUNGS: Fair air entry bilaterally, slightly diminished at bases. HEART: Regular rhythm, no S3, no palpable thrills. ABDOMEN: Morbidly obese. Bowel sounds normal. EXTREMITIES: The patient has bilateral about 1+ edema. The patient is having compression stockings. Distal pulses are fair. NEUROLOGIC: The patient is alert, oriented. No focal neurologic deficit. Medication and labs reviewed. His hemoglobin 13.1, creatinine 1.46. IMPRESSION: 1. No pulmonary edema, resolved. 2. Hypertension, stable. 3. Chronic kidney disease. 4. Chronic respiratory failure, on home oxygen as well as CPAP. 5. Moderate obesity. 6. Chronic kidney disease. RECOMMENDATIONS: 1. Continue current medications. 2. Possible discharge tomorrow. 3. Medication and diet compliance was discussed with him. 4. There is no family at bedside at the time of my examination. [place], [place] PROGRESS NOTE NAME: PILO KOROMA UNIT #: [id number] ROOM: 517 DOCTOR: ERIKA ERWIN MD BIRTHDATE: [birth year] ERIKA ERWIN MD CM:PNTRANS 0602 1008 ERIKA ERWIN MD 12/21/17 1007 interface
[2017-12-15 02:00] VITALS: BP 115/75
[2017-12-15 02:37] LABS: BASO % 0.5 % (0.0-1.0); EOS # 0.2 10*3/uL (0.0-0.4); EOS % 2.8 % (1.0-4.0); HEMATOCRIT 41.8 % (42.0-52.0); HEMOGLOBIN 13.7 g/dl (14.0-18.0); LYMPH # 1.9 10*3/uL (1.3-4.4); LYMPH % 24.3 % (27.0-41.0); MEAN CELL VOLUME 78.6 fl (80.0-94.0); MEAN CORPUSCULAR HGB 25.8 pg (27.0-31.0); MEAN CORPUSCULAR HGB CONC 32.8 g/dl (33.0-37.0); MONO # 1.1 10*3/uL (0.1-1.0); NEUT # 4.5 10*3/uL (2.3-7.9); NEUT % 58.3 % (47.0-73.0); PLATELET COUNT AUTOMATED 225 10*3/uL (130-400); RED BLOOD COUNT 5.32 10*6/uL (4.50-5.90); RED CELL DISTRI WIDTH 18.5 % (0-14.5); WHITE BLOOD COUNT 7.8 10*3/uL (4.8-10.8)
[2017-12-15 02:45] LABS: INTERNATIONAL NORM RATIO 0.9 (2.0-3.5)
[2017-12-15 02:54] LABS: ALBUMIN 3.4 gm/dl (3.1-4.5); CREATININE 1.59 mg/dL (0.70-1.30); POTASSIUM 4.4 mmol/L (3.5-5.1); TOTAL PROTEIN 7.5 gm/dL (6.4-8.2)
[2017-12-15 02:56] LABS: TROPONIN I 0.02 ng/ml (<0.045)
[2017-12-15 03:01] LABS: THYROID STIM HORMONE (HS) 2.45 uIU/ml (0.358-4.75)
[2017-12-15 03:01] LABS: BILIRUBIN NEGATIVE (NEGATIVE); BLOOD TRACE-INTACT (NEGATIVE); CLARITY CLEAR (CLEAR); COLOR YELLOW (YELLOW); GLUCOSE 3+ (NEGATIVE); KETONE NEGATIVE (NEGATIVE); LEUKO ESTERASE NEGATIVE (NEGATIVE); NITRITE NEGATIVE (NEGATIVE); PH 5.5 (5.0-9.0); UROBILINOGEN 0.2 E.U./dl (0.2-1.0)
[2017-12-15 03:13] LABS: RBC 0-2 rbc/hpf (0-2)
[2017-12-15 03:35] VITALS: BP 139/86
[2017-12-15 08:00] VITALS: BP 140/70
[2017-12-15] MEDS ORDERED: VASOTEC20 MG PO (09:37)
[2017-12-15] MEDS ORDERED: JANUVIA50 MG PO (09:37)
[2017-12-15] MEDS ORDERED: LANTUS SOL100 UNIT/1 SQ (11:23)
[2017-12-15] MEDS ORDERED: ZESTRIL10 MG PO (11:24)
[2017-12-15 12:00] VITALS: BP 123/105
[2017-12-15 16:00] VITALS: BP 130/80
[2017-12-15 20:00] VITALS: BP 141/66
[2017-12-16] VITALS: BP 113/80
[2017-12-16 06:24] LABS: BASO % 0.6 % (0.0-1.0); EOS # 0.2 10*3/uL (0.0-0.4); HEMATOCRIT 41.9 % (42.0-52.0); HEMOGLOBIN 13.3 g/dl (14.0-18.0); LYMPH % 29.4 % (27.0-41.0); MEAN CELL VOLUME 79.7 fl (80.0-94.0); MEAN CORPUSCULAR HGB 25.3 pg (27.0-31.0); MEAN CORPUSCULAR HGB CONC 31.7 g/dl (33.0-37.0); MEAN PLATELET VOLUME 11.6 fl (9.6-12.3); MONO % 13.7 % (3.0-9.0); NEUT # 3.7 10*3/uL (2.3-7.9); PLATELET COUNT AUTOMATED 235 10*3/uL (130-400); RED BLOOD COUNT 5.26 10*6/uL (4.50-5.90); RED CELL DISTRI WIDTH 18.1 % (0-14.5); WHITE BLOOD COUNT 6.9 10*3/uL (4.8-10.8)
[2017-12-16 06:48] LABS: ALBUMIN 3.2 gm/dl (3.1-4.5); CREATININE 1.62 mg/dL (0.70-1.30); PHOSPHOROUS 3.1 mg/dL (2.5-4.9); POTASSIUM 4.6 mmol/L (3.5-5.1); TOTAL PROTEIN 7.3 gm/dL (6.4-8.2)
[2017-12-16 08:00] VITALS: BP 132/71
[2017-12-16 12:00] VITALS: BP 135/62
[2017-12-16 16:00] VITALS: BP 109/58
[2017-12-16 20:00] VITALS: BP 111/64
[2017-12-17] VITALS: BP 116/68
[2017-12-17 06:48] LABS: BASO % 0.5 % (0.0-1.0); EOS # 0.2 10*3/uL (0.0-0.4); EOS % 2.7 % (1.0-4.0); HEMATOCRIT 41.6 % (42.0-52.0); HEMOGLOBIN 13.5 g/dl (14.0-18.0); LYMPH # 2.3 10*3/uL (1.3-4.4); LYMPH % 29.7 % (27.0-41.0); MEAN CELL VOLUME 79.2 fl (80.0-94.0); MEAN CORPUSCULAR HGB 25.7 pg (27.0-31.0); MEAN CORPUSCULAR HGB CONC 32.5 g/dl (33.0-37.0); MONO % 12.8 % (3.0-9.0); NEUT # 4.3 10*3/uL (2.3-7.9); PLATELET COUNT AUTOMATED 245 10*3/uL (130-400); RED BLOOD COUNT 5.25 10*6/uL (4.50-5.90); WHITE BLOOD COUNT 7.9 10*3/uL (4.8-10.8)
[2017-12-17 07:08] LABS: CREATININE 1.84 mg/dL (0.70-1.30); POTASSIUM 4.9 mmol/L (3.5-5.1)
[2017-12-17 08:00] VITALS: BP 128/50
[2017-12-17 12:00] VITALS: BP 135/58; BP 160/83
[2017-12-17 13:42] LABS: ABG BASE EXCESS 2.6 mmol/L (-2.0-2.0); ABG HCO3 29.6 mmol/l (22-26); ARTERIAL BLOOD GAS PCO2 58.5 mmHg (35-45); ARTERIAL BLOOD GAS PH 7.323 (7.35-7.45); ARTERIAL BLOOD GAS PO2 89.4 mmHg (80-90)
[2017-12-17 16:00] VITALS: BP 106/51
[2017-12-17 20:00] VITALS: BP 142/69
[2017-12-18] VITALS: BP 152/72
[2017-12-18 06:21] LABS: BASO % 0.5 % (0.0-1.0); EOS # 0.2 10*3/uL (0.0-0.4); EOS % 3.1 % (1.0-4.0); HEMOGLOBIN 13.5 g/dl (14.0-18.0); LYMPH # 1.9 10*3/uL (1.3-4.4); LYMPH % 25.4 % (27.0-41.0); MEAN CELL VOLUME 78.9 fl (80.0-94.0); MEAN CORPUSCULAR HGB 25.4 pg (27.0-31.0); MEAN CORPUSCULAR HGB CONC 32.1 g/dl (33.0-37.0); MEAN PLATELET VOLUME 11.5 fl (9.6-12.3); MONO # 0.9 10*3/uL (0.1-1.0); NEUT # 4.4 10*3/uL (2.3-7.9); NEUT % 58.7 % (47.0-73.0); PLATELET COUNT AUTOMATED 267 10*3/uL (130-400); RED BLOOD COUNT 5.32 10*6/uL (4.50-5.90); RED CELL DISTRI WIDTH 17.4 % (0-14.5); WHITE BLOOD COUNT 7.5 10*3/uL (4.8-10.8)
[2017-12-18 06:33] LABS: CREATININE 1.5 mg/dL (0.70-1.30)
[2017-12-18 08:00] VITALS: BP 148/72; BP 152/78
[2017-12-18 12:00] VITALS: BP 107/90
[2017-12-18 16:00] VITALS: BP 125/70
[2017-12-18 20:00] VITALS: BP 135/73
[2017-12-19] VITALS: BP 128/52
[2017-12-19 07:51] LABS: BASO # 0.1 10*3/uL (0.0-0.1); BASO % 0.8 % (0.0-1.0); EOS # 0.2 10*3/uL (0.0-0.4); EOS % 3.5 % (1.0-4.0); HEMATOCRIT 41.3 % (42.0-52.0); HEMOGLOBIN 13.2 g/dl (14.0-18.0); LYMPH # 1.9 10*3/uL (1.3-4.4); LYMPH % 28.7 % (27.0-41.0); MEAN CELL VOLUME 79.4 fl (80.0-94.0); MEAN CORPUSCULAR HGB 25.4 pg (27.0-31.0); MEAN PLATELET VOLUME 11.1 fl (9.6-12.3); MONO # 0.7 10*3/uL (0.1-1.0); MONO % 11.2 % (3.0-9.0); NEUT # 3.6 10*3/uL (2.3-7.9); NEUT % 55.6 % (47.0-73.0); PLATELET COUNT AUTOMATED 231 10*3/uL (130-400); RED CELL DISTRI WIDTH 17.2 % (0-14.5); WHITE BLOOD COUNT 6.5 10*3/uL (4.8-10.8)
[2017-12-19 08:00] VITALS: BP 121/83
[2017-12-19 08:05] LABS: BUN 30 mg/dl (7-24); CHLORIDE 94 mmol/L (98-107); CREATININE 1.41 mg/dL (0.70-1.30); POTASSIUM 4.6 mmol/L (3.5-5.1); SODIUM 131 mmol/L (136-145)
[2017-12-19 13:08] VITALS: BP 108/85
[2017-12-19 16:00] VITALS: BP 123/72
[2017-12-19 19:54] VITALS: BP 121/56
[2017-12-20] VITALS: BP 123/57
[2017-12-20 06:49] LABS: BASO % 0.6 % (0.0-1.0); CREATININE 1.46 mg/dL (0.70-1.30); EOS # 0.2 10*3/uL (0.0-0.4); HEMATOCRIT 40.1 % (42.0-52.0); HEMOGLOBIN 13.1 g/dl (14.0-18.0); LYMPH # 1.9 10*3/uL (1.3-4.4); LYMPH % 28.6 % (27.0-41.0); MEAN CELL VOLUME 77.9 fl (80.0-94.0); MEAN CORPUSCULAR HGB 25.4 pg (27.0-31.0); MEAN CORPUSCULAR HGB CONC 32.7 g/dl (33.0-37.0); MEAN PLATELET VOLUME 11.2 fl (9.6-12.3); MONO # 0.9 10*3/uL (0.1-1.0); MONO % 13.6 % (3.0-9.0); NEUT # 3.6 10*3/uL (2.3-7.9); NEUT % 53.9 % (47.0-73.0); PLATELET COUNT AUTOMATED 238 10*3/uL (130-400); POTASSIUM 4.8 mmol/L (3.5-5.1); RED BLOOD COUNT 5.15 10*6/uL (4.50-5.90); RED CELL DISTRI WIDTH 16.9 % (0-14.5); WHITE BLOOD COUNT 6.6 10*3/uL (4.8-10.8)
[2017-12-20 08:00] VITALS: BP 116/85
[2017-12-20 12:00] VITALS: BP 110/68
[2017-12-20 16:00] VITALS: BP 128/73
[2017-12-20 20:00] VITALS: BP 151/82
[2017-12-21] VITALS: BP 127/74
[2017-12-21 06:28] LABS: CREATININE 1.74 mg/dL (0.70-1.30); POTASSIUM 5.3 mmol/L (3.5-5.1)
[2017-12-21 08:00] VITALS: BP 100/86
[2017-12-21 12:00] VITALS: BP 126/73
[2017-12-21] MEDS ORDERED: DUONEB 3 MG/3 ML3 M1 NEB (13:42)
[2017-12-21] MEDS ORDERED: CARVEDILOL6.25 MG PO (13:42)
[2017-12-21] MEDS ORDERED: LASIX40 MG PO (13:45)
== END 2017-12-21 15:58 | disposition other institution (70) | DRG 291 ==
LOC: ED 02:00 → EDHOLD 03:15 → 5E 03:15
PROVIDERS: Emergency Medicine; Emergency Medicine Emergency Medical Services; Internal Medicine; Student in an Organized Health Care Education/Training Program
PROC: 5A09357 Assistance with Respiratory Ventilation, Less than 24 Consecutive Hours, Continuous Positive Airway Pressure (ICD-10-PCS; principal; 2017-12-15)
PROC: 05HY33Z Insertion of Infusion Device into Upper Vein, Percutaneous Approach (ICD-10-PCS; 2017-12-16)
PROC: 5A09357 Assistance with Respiratory Ventilation, Less than 24 Consecutive Hours, Continuous Positive Airway Pressure (ICD-10-PCS; 2017-12-16)
PROC: 5A09357 Assistance with Respiratory Ventilation, Less than 24 Consecutive Hours, Continuous Positive Airway Pressure (ICD-10-PCS; 2017-12-17)
PROC: 5A09357 Assistance with Respiratory Ventilation, Less than 24 Consecutive Hours, Continuous Positive Airway Pressure (ICD-10-PCS; 2017-12-19)
DX: I13.0 Hypertensive heart and chronic kidney disease with heart failure and stage 1 through stage 4 chronic kidney disease, or unspecified chronic kidney disease (principal); I50.33 Acute on chronic diastolic (congestive) heart failure; J96.20 Acute and chronic respiratory failure, unspecified whether with hypoxia or hypercapnia; E11.22 Type 2 diabetes mellitus with diabetic chronic kidney disease; E87.1 Hypo-osmolality and hyponatremia; Z68.43 Body mass index [BMI] 50.0-59.9, adult; E11.65 Type 2 diabetes mellitus with hyperglycemia; Z99.81 Dependence on supplemental oxygen; N18.3 Chronic kidney disease, stage 3 (moderate); E66.01 Morbid (severe) obesity due to excess calories; J43.9 Emphysema, unspecified; K21.9 Gastro-esophageal reflux disease without esophagitis; R29.6 Repeated falls; R81 Glycosuria; D50.9 Iron deficiency anemia, unspecified; D72.810 Lymphocytopenia; D72.821 Monocytosis (symptomatic); G47.33 Obstructive sleep apnea (adult) (pediatric); L29.9 Pruritus, unspecified; Z60.2 Problems related to living alone; I25.10 Atherosclerotic heart disease of native coronary artery without angina pectoris; E78.00 Pure hypercholesterolemia, unspecified; E55.9 Vitamin D deficiency, unspecified; Z86.69 Personal history of other diseases of the nervous system and sense organs; Z79.899 Other long term (current) drug therapy; I25.2 Old myocardial infarction; Z90.89 Acquired absence of other organs; Z82.3 Family history of stroke; Z83.3 Family history of diabetes mellitus; Z82.49 Family history of ischemic heart disease and other diseases of the circulatory system; Z79.4 Long term (current) use of insulin; Z90.49 Acquired absence of other specified parts of digestive tract

== ENCOUNTER 2018-01-23 16:06 | Inpatient (IN) | payer MEDICARE ==
[~2018-01-23] VITALS: Ht 177.8 cm; Wt 146.2 kg
[~2018-01-23 16:06] MED LIST changes: +CARVEDILOL6.25 MG PO; +DUONEB 3 MG/3 ML3 M1 NEB; +JANUVIA50 MG PO; +LANTUS SOL100 UNIT/1 SQ; +LASIX40 MG PO; +VASOTEC20 MG PO; +ZESTRIL10 MG PO
[2018-01-23 16:08] VITALS: BP 147/64
[2018-01-23 16:34] VITALS: BP 149/79
[2018-01-23 16:41] LABS: BASO % 0.5 % (0.0-1.0); EOS # 0.3 10*3/uL (0.0-0.4); HEMATOCRIT 39.6 % (42.0-52.0); HEMOGLOBIN 13.1 g/dl (14.0-18.0); LYMPH # 2.4 10*3/uL (1.3-4.4); LYMPH % 36.5 % (27.0-41.0); MEAN CELL VOLUME 79.2 fl (80.0-94.0); MEAN CORPUSCULAR HGB 26.2 pg (27.0-31.0); MEAN CORPUSCULAR HGB CONC 33.1 g/dl (33.0-37.0); MEAN PLATELET VOLUME 10.3 fl (9.6-12.3); MONO % 15.8 % (3.0-9.0); NEUT # 2.8 10*3/uL (2.3-7.9); PLATELET COUNT AUTOMATED 216 10*3/uL (130-400); RED CELL DISTRI WIDTH 16.9 % (0-14.5); WHITE BLOOD COUNT 6.6 10*3/uL (4.8-10.8)
[2018-01-23 16:52] LABS: ACT PARTIAL THROMBO TIME 27.7 SECONDS (20.8-31.5); INTERNATIONAL NORM RATIO 0.9 (2.0-3.5)
[2018-01-23 16:59] LABS: ALBUMIN 3.2 gm/dl (3.1-4.5); ALKALINE PHOSPHATASE 68 U/L (45-117); BUN 30 mg/dl (7-24); CHLORIDE 94 mmol/L (98-107); CREATININE 1.61 mg/dL (0.70-1.30); POTASSIUM 4.9 mmol/L (3.5-5.1); SGOT/AST 21 IU/L (3-35); SGPT/ALT 29 U/L (12-78); SODIUM 130 mmol/L (136-145); TOTAL PROTEIN 7.7 gm/dL (6.4-8.2)
[2018-01-23 17:01] LABS: TROPONIN I < 0.015 ng/ml (<0.045)
[2018-01-23 17:09] LABS: ABG BASE EXCESS 4.9 mmol/L (-2.0-2.0); ABG HCO3 31.6 mmol/l (22-26); ABG O2 SATURATION 95.1 % (95-97); ARTERIAL BLOOD GAS PCO2 57.8 mmHg (35-45); ARTERIAL BLOOD GAS PH 7.356 (7.35-7.45); ARTERIAL BLOOD GAS PO2 82.7 mmHg (80-90)
[2018-01-23 18:05] VITALS: BP 150/60
[2018-01-23 18:10] VITALS: BP 129/75
[2018-01-23 18:26] LABS: BILIRUBIN NEGATIVE (NEGATIVE); BLOOD TRACE-LYSED (NEGATIVE); CLARITY CLEAR (CLEAR); COLOR YELLOW (YELLOW); GLUCOSE 2+ (NEGATIVE); KETONE NEGATIVE (NEGATIVE); LEUKO ESTERASE NEGATIVE (NEGATIVE); NITRITE NEGATIVE (NEGATIVE); PH 5.5 (5.0-9.0); UROBILINOGEN 0.2 E.U./dl (0.2-1.0)
[2018-01-23] MEDS ORDERED: ZESTRIL10 MG PO (18:31)
[2018-01-23 18:35] LABS: BACTERIA TRACE; EPITHELIAL CELLS 0-2; WBC 0-2 wbc/hpf (0-5)
[2018-01-23 20:00] VITALS: BP 167/68
[2018-01-24] VITALS: BP 132/58
[2018-01-24 06:48] LABS: BASO % 0.5 % (0.0-1.0); EOS # 0.3 10*3/uL (0.0-0.4); EOS % 3.5 % (1.0-4.0); HEMATOCRIT 44.1 % (42.0-52.0); HEMOGLOBIN 14.2 g/dl (14.0-18.0); LYMPH # 2.8 10*3/uL (1.3-4.4); LYMPH % 35.4 % (27.0-41.0); MEAN CELL VOLUME 79.9 fl (80.0-94.0); MEAN CORPUSCULAR HGB 25.7 pg (27.0-31.0); MEAN CORPUSCULAR HGB CONC 32.2 g/dl (33.0-37.0); MONO # 0.8 10*3/uL (0.1-1.0); MONO % 9.7 % (3.0-9.0); NEUT # 4.1 10*3/uL (2.3-7.9); NEUT % 50.7 % (47.0-73.0); PLATELET COUNT AUTOMATED 270 10*3/uL (130-400); RED BLOOD COUNT 5.52 10*6/uL (4.50-5.90); RED CELL DISTRI WIDTH 16.8 % (0-14.5)
[2018-01-24 07:32] LABS: ALBUMIN 3.4 gm/dl (3.1-4.5); POTASSIUM 4.8 mmol/L (3.5-5.1)
[2018-01-24 07:37] LABS: CREATININE 1.69 mg/dL (0.70-1.30); PHOSPHOROUS 4.7 mg/dL (2.5-4.9); TOTAL PROTEIN 8.2 gm/dL (6.4-8.2)
[2018-01-24 08:00] VITALS: BP 127/70
[2018-01-24 12:00] VITALS: BP 139/80
[2018-01-24 16:00] VITALS: BP 130/66
[2018-01-24 20:00] VITALS: BP 126/85
[2018-01-25] VITALS: BP 145/84
[2018-01-25 06:47] LABS: BASO % 0.4 % (0.0-1.0); EOS # 0.3 10*3/uL (0.0-0.4); EOS % 3.8 % (1.0-4.0); HEMATOCRIT 43.3 % (42.0-52.0); HEMOGLOBIN 14.1 g/dl (14.0-18.0); LYMPH # 2.7 10*3/uL (1.3-4.4); LYMPH % 38.6 % (27.0-41.0); MEAN CELL VOLUME 78.6 fl (80.0-94.0); MEAN CORPUSCULAR HGB 25.6 pg (27.0-31.0); MEAN CORPUSCULAR HGB CONC 32.6 g/dl (33.0-37.0); MEAN PLATELET VOLUME 10.8 fl (9.6-12.3); MONO # 0.7 10*3/uL (0.1-1.0); MONO % 9.8 % (3.0-9.0); NEUT # 3.3 10*3/uL (2.3-7.9); NEUT % 47.3 % (47.0-73.0); PLATELET COUNT AUTOMATED 267 10*3/uL (130-400); RED BLOOD COUNT 5.51 10*6/uL (4.50-5.90); RED CELL DISTRI WIDTH 16.4 % (0-14.5); WHITE BLOOD COUNT 6.9 10*3/uL (4.8-10.8)
[2018-01-25 06:54] LABS: ALBUMIN 3.6 gm/dl (3.1-4.5); CREATININE 1.58 mg/dL (0.70-1.30); POTASSIUM 4.8 mmol/L (3.5-5.1)
[2018-01-25 08:00] VITALS: BP 144/76
[2018-01-25 12:00] VITALS: BP 152/66
[2018-01-25 16:00] VITALS: BP 129/66
[2018-01-25 20:00] VITALS: BP 146/70
[2018-01-26] VITALS: BP 123/66
[2018-01-26 08:00] VITALS: BP 124/69
[2018-01-26] MEDS ORDERED: Humalog SQ (11:56)
[2018-01-26] MEDS ORDERED: Lantus SC (11:56)
[2018-01-26] MEDS ORDERED: LASIX40 MG PO (11:56)
[2018-01-26 11:59] VITALS: BP 124/69
== END 2018-01-26 15:41 | disposition other institution (70) | DRG 291 ==
LOC: ED 16:06 → EDHOLD 16:20 → 5E 16:20 → ICCU 17:23 → 5E 17:54
PROVIDERS: Emergency Medicine; Registered Nurse
PROC: 5A09357 Assistance with Respiratory Ventilation, Less than 24 Consecutive Hours, Continuous Positive Airway Pressure (ICD-10-PCS; principal; 2018-01-24)
PROC: 5A09357 Assistance with Respiratory Ventilation, Less than 24 Consecutive Hours, Continuous Positive Airway Pressure (ICD-10-PCS; 2018-01-26)
DX: I13.0 Hypertensive heart and chronic kidney disease with heart failure and stage 1 through stage 4 chronic kidney disease, or unspecified chronic kidney disease (principal); J96.00 Acute respiratory failure, unspecified whether with hypoxia or hypercapnia; I50.43 Acute on chronic combined systolic (congestive) and diastolic (congestive) heart failure; E87.1 Hypo-osmolality and hyponatremia; Z68.42 Body mass index [BMI] 45.0-49.9, adult; Z83.3 Family history of diabetes mellitus; E11.65 Type 2 diabetes mellitus with hyperglycemia; I25.10 Atherosclerotic heart disease of native coronary artery without angina pectoris; K21.9 Gastro-esophageal reflux disease without esophagitis; N18.3 Chronic kidney disease, stage 3 (moderate); J44.9 Chronic obstructive pulmonary disease, unspecified; G47.33 Obstructive sleep apnea (adult) (pediatric); E78.00 Pure hypercholesterolemia, unspecified; E66.01 Morbid (severe) obesity due to excess calories; R29.6 Repeated falls; E55.9 Vitamin D deficiency, unspecified; R00.0 Tachycardia, unspecified; E11.22 Type 2 diabetes mellitus with diabetic chronic kidney disease; Z99.81 Dependence on supplemental oxygen; Z79.899 Other long term (current) drug therapy; Z79.4 Long term (current) use of insulin; Z90.89 Acquired absence of other organs; Z82.49 Family history of ischemic heart disease and other diseases of the circulatory system; Z82.3 Family history of stroke

== ENCOUNTER → 2018-03-15 | Outpatient (CLI) | payer MEDICARE, MEDICAID ==
[~2018-03-15] MED LIST changes: +ENALAPRIL MALEA20 MG PO; +GLIPIZIDE10 M2 PO; +Humalog SQ; +Lantus SC; +VITAMIN D-32000 UNIT PO
[2018-03-15 10:44] LABS: BILIRUBIN NEGATIVE (NEGATIVE); BLOOD 1+ (NEGATIVE); CLARITY SL CLOUDY (CLEAR); COLOR YELLOW (YELLOW); GLUCOSE 2+ (NEGATIVE); KETONE NEGATIVE (NEGATIVE); LEUKO ESTERASE NEGATIVE (NEGATIVE); NITRITE NEGATIVE (NEGATIVE); SPECIFIC GRAVITY 1.015 (1.005-1.030); UROBILINOGEN 0.2 E.U./dl (0.2-1.0)
[2018-03-15 11:13] LABS: ALBUMIN 3.5 gm/dl (3.1-4.5); ALKALINE PHOSPHATASE 72 U/L (45-117); BILIRUBIN, DIRECT < 0.1 mg/dL (0.0-0.2); BUN 31 mg/dl (7-24); CHLORIDE 106 mmol/L (98-107); CHOLESTEROL 139 mg/dL (<200); CREATININE 1.42 mg/dL (0.70-1.30); HDL CHOLESTEROL 40 mg/dl (40-60); LDL CHOLESTEROL 63 mg/dL (9-159); POTASSIUM 4.4 mmol/L (3.5-5.1); SGOT/AST 16 IU/L (3-35); SGPT/ALT 25 U/L (12-78); SODIUM 140 mmol/L (136-145); TRIGLYCERIDES 178 mg/dl (<150); VLDL CHOLESTEROL 36 mg/dL (6-40)
== END | disposition home or self-care (01) ==
LOC: LAB 10:04
PROVIDERS: Internal Medicine
DX: E78.5 Hyperlipidemia, unspecified (principal); E11.65 Type 2 diabetes mellitus with hyperglycemia; E55.9 Vitamin D deficiency, unspecified

== ENCOUNTER 2018-03-24 18:35 | Inpatient (IN) | payer MEDICARE, MEDICAID ==
[2018-03-24] VITALS (8 sets, daily range): BP systolic 144–181; BP diastolic 62–83
[~2018-03-24] VITALS: Ht 177.8 cm; Wt 147.0 kg
--- NOTE | ~2018-03-24 | EKG ---
[place], [place] ELECTROCARDIOGRAM REPORT NAME: PILO KOROMA UNIT #: [id number] ROOM: 518 DOCTOR: EVANGELINA DRAFT REPORT BIRTHDATE: [birth year] [facility] Test Date: 2018-03-30 Test Time: 05:54:22 Pat Name: PILO KOROMA Department: 5E Room: 518 1 Gender: M [place] Attendant: Vu Gomez : 1950 Requested By: GARY FRANKLIN Order Number: [id number] Reading MD: Aida Munoz MD Measurements Intervals [place] Rate: 78 P: 45 ID: 175 QRS: -38 QRSD: 95 T: 29 QT: 405 QTc: 462 Interpretive Statements Sinus rhythm Left axis deviation ST elevation, consider anterolateral injury Abnormal EKG. Electronically Signed On 03-30-2018 16:19:35 PDT by Aida Munoz MD CM:EKGRPT:ELECTROCARDIOGRAM REPORT [id number] 1619 GARY CASTILLO DRAFT REPORT GARY FRANKLIN DO
[~2018-03-24 18:35] MED LIST changes: -ENALAPRIL MALEA20 MG PO; -GLIPIZIDE10 M2 PO; -VITAMIN D-32000 UNIT PO
[2018-03-24 19:24] LABS: BASO % 0.5 % (0.0-1.0); EOS # 0.2 10*3/uL (0.0-0.4); EOS % 2.4 % (1.0-4.0); HEMATOCRIT 39.5 % (42.0-52.0); LYMPH # 2.1 10*3/uL (1.3-4.4); LYMPH % 26.8 % (27.0-41.0); MEAN CELL VOLUME 79.8 fl (80.0-94.0); MEAN CORPUSCULAR HGB 26.3 pg (27.0-31.0); MEAN CORPUSCULAR HGB CONC 32.9 g/dl (33.0-37.0); MEAN PLATELET VOLUME 10.9 fl (9.6-12.3); MONO # 0.9 10*3/uL (0.1-1.0); MONO % 11.5 % (3.0-9.0); NEUT # 4.7 10*3/uL (2.3-7.9); NEUT % 58.5 % (47.0-73.0); PLATELET COUNT AUTOMATED 240 10*3/uL (130-400); RED BLOOD COUNT 4.95 10*6/uL (4.50-5.90); RED CELL DISTRI WIDTH 16.2 % (0-14.5)
[2018-03-24 19:33] LABS: ACT PARTIAL THROMBO TIME 27.9 SECONDS (20.8-31.5); INTERNATIONAL NORM RATIO 0.9 (2.0-3.5)
[2018-03-24 19:40] LABS: ALBUMIN 3.2 gm/dl (3.1-4.5); ALKALINE PHOSPHATASE 72 U/L (45-117); BUN 17 mg/dl (7-24); CHLORIDE 101 mmol/L (98-107); CREATININE 1.44 mg/dL (0.70-1.30); LIPASE 58 U/L (73-393); POTASSIUM 4.5 mmol/L (3.5-5.1); SGOT/AST 18 IU/L (3-35); SGPT/ALT 22 U/L (12-78); SODIUM 138 mmol/L (136-145); TOTAL PROTEIN 7.4 gm/dL (6.4-8.2)
[2018-03-24 20:02] LABS: TROPONIN I < 0.015 ng/ml (<0.045)
[2018-03-25 06:27] LABS: BASO # 0.1 10*3/uL (0.0-0.1); BASO % 0.7 % (0.0-1.0); EOS # 0.2 10*3/uL (0.0-0.4); EOS % 2.3 % (1.0-4.0); HEMATOCRIT 41.7 % (42.0-52.0); HEMOGLOBIN 13.2 g/dl (14.0-18.0); LYMPH # 1.9 10*3/uL (1.3-4.4); MEAN CELL VOLUME 81.1 fl (80.0-94.0); MEAN CORPUSCULAR HGB 25.7 pg (27.0-31.0); MEAN CORPUSCULAR HGB CONC 31.7 g/dl (33.0-37.0); MEAN PLATELET VOLUME 10.7 fl (9.6-12.3); MONO # 0.9 10*3/uL (0.1-1.0); MONO % 11.8 % (3.0-9.0); NEUT # 4.4 10*3/uL (2.3-7.9); NEUT % 58.9 % (47.0-73.0); PLATELET COUNT AUTOMATED 239 10*3/uL (130-400); RED BLOOD COUNT 5.14 10*6/uL (4.50-5.90); RED CELL DISTRI WIDTH 15.9 % (0-14.5); WHITE BLOOD COUNT 7.4 10*3/uL (4.8-10.8)
[2018-03-25 06:58] LABS: ALBUMIN 3.2 gm/dl (3.1-4.5); ALKALINE PHOSPHATASE 72 U/L (45-117); BUN 20 mg/dl (7-24); CHLORIDE 98 mmol/L (98-107); CREATININE 1.39 mg/dL (0.70-1.30); PHOSPHOROUS 4.9 mg/dL (2.5-4.9); POTASSIUM 4.5 mmol/L (3.5-5.1); SGOT/AST 11 IU/L (3-35); SGPT/ALT 21 U/L (12-78); SODIUM 139 mmol/L (136-145); TOTAL PROTEIN 7.6 gm/dL (6.4-8.2)
[2018-03-25 08:00] VITALS: BP 156/80
[2018-03-25 16:00] VITALS: BP 152/79
[2018-03-25] MEDS ORDERED: GLIPIZIDE10 M2 PO (19:36)
[2018-03-25] MEDS ORDERED: ENALAPRIL MALEA20 MG PO (19:37)
[2018-03-25] MEDS ORDERED: VITAMIN D-32000 UNIT PO (19:38)
[2018-03-25] MEDS ORDERED: FUROSEMIDE20 M1 PO (19:38)
[2018-03-25 20:00] VITALS: BP 153/82
[2018-03-26] VITALS: BP 150/70
[2018-03-26 08:00] VITALS: BP 141/75
[2018-03-26 12:00] VITALS: BP 107/88
[2018-03-26 16:00] VITALS: BP 110/75
[2018-03-26 20:00] VITALS: BP 151/51
[2018-03-27] VITALS: BP 148/65
[2018-03-27 08:00] VITALS: BP 141/92
[2018-03-27 12:00] VITALS: BP 150/69
[2018-03-27 16:00] VITALS: BP 136/80
[2018-03-27 20:00] VITALS: BP 142/59
[2018-03-28] VITALS: BP 140/66
[2018-03-28 06:46] LABS: BASO # 0.1 10*3/uL (0.0-0.1); BASO % 0.8 % (0.0-1.0); EOS # 0.2 10*3/uL (0.0-0.4); EOS % 2.4 % (1.0-4.0); HEMOGLOBIN 14.4 g/dl (14.0-18.0); LYMPH # 2.3 10*3/uL (1.3-4.4); LYMPH % 32.3 % (27.0-41.0); MEAN CELL VOLUME 79.4 fl (80.0-94.0); MEAN CORPUSCULAR HGB CONC 32.7 g/dl (33.0-37.0); MONO % 13.4 % (3.0-9.0); NEUT # 3.7 10*3/uL (2.3-7.9); NEUT % 50.8 % (47.0-73.0); PLATELET COUNT AUTOMATED 263 10*3/uL (130-400); RED BLOOD COUNT 5.54 10*6/uL (4.50-5.90); RED CELL DISTRI WIDTH 15.8 % (0-14.5); WHITE BLOOD COUNT 7.2 10*3/uL (4.8-10.8)
[2018-03-28 07:02] LABS: CREATININE 1.46 mg/dL (0.70-1.30)
[2018-03-28 08:00] VITALS: BP 129/68
[2018-03-28 12:00] VITALS: BP 141/68
[2018-03-28 16:00] VITALS: BP 140/86
[2018-03-28 20:00] VITALS: BP 130/107; BP 136/80
[2018-03-29] VITALS: BP 131/100
[2018-03-29 01:00] VITALS: BP 120/86
[2018-03-29 08:00] VITALS: BP 113/52
[2018-03-29 12:00] VITALS: BP 134/70
[2018-03-29 16:00] VITALS: BP 131/59
[2018-03-29 20:00] VITALS: BP 136/61
[2018-03-30] VITALS: BP 122/52
[2018-03-30 06:03] VITALS: BP 101/56
[2018-03-30 06:05] LABS: BASO # 0.1 10*3/uL (0.0-0.1); BASO % 0.5 % (0.0-1.0); EOS # 0.2 10*3/uL (0.0-0.4); EOS % 1.7 % (1.0-4.0); HEMATOCRIT 46.5 % (42.0-52.0); HEMOGLOBIN 15.2 g/dl (14.0-18.0); LYMPH # 4.5 10*3/uL (1.3-4.4); LYMPH % 39.4 % (27.0-41.0); MEAN CELL VOLUME 79.8 fl (80.0-94.0); MEAN CORPUSCULAR HGB 26.1 pg (27.0-31.0); MEAN CORPUSCULAR HGB CONC 32.7 g/dl (33.0-37.0); MEAN PLATELET VOLUME 11.1 fl (9.6-12.3); MONO # 1.3 10*3/uL (0.1-1.0); NEUT # 5.4 10*3/uL (2.3-7.9); NEUT % 47.1 % (47.0-73.0); PLATELET COUNT AUTOMATED 297 10*3/uL (130-400); RED BLOOD COUNT 5.83 10*6/uL (4.50-5.90); RED CELL DISTRI WIDTH 15.8 % (0-14.5); WHITE BLOOD COUNT 11.4 10*3/uL (4.8-10.8)
[2018-03-30 06:21] LABS: ALBUMIN 3.2 gm/dl (3.1-4.5); BUN 31 mg/dl (7-24); CHLORIDE 95 mmol/L (98-107); CREATININE 2.11 mg/dL (0.70-1.30); PHOSPHOROUS 4.4 mg/dL (2.5-4.9); POTASSIUM 4.5 mmol/L (3.5-5.1); SODIUM 134 mmol/L (136-145)
[2018-03-30 06:22] LABS: TROPONIN I < 0.015 ng/ml (<0.045)
[2018-03-30 08:00] VITALS: BP 125/60
[2018-03-30 10:26] LABS: BILIRUBIN NEGATIVE (NEGATIVE); BLOOD NEGATIVE (NEGATIVE); CLARITY SL CLOUDY (CLEAR); COLOR YELLOW (YELLOW); GLUCOSE 1+ (NEGATIVE); KETONE TRACE (NEGATIVE); LEUKO ESTERASE NEGATIVE (NEGATIVE); NITRITE NEGATIVE (NEGATIVE); PH 5.5 (5.0-9.0); SPECIFIC GRAVITY 1.015 (1.005-1.030); UROBILINOGEN 0.2 E.U./dl (0.2-1.0)
[2018-03-30 11:00] LABS: CALCIUM OXALATE CRYSTALS TRACE; MUCOUS 1+
[2018-03-30 11:01] LABS: BACTERIA 1+
[2018-03-30 11:02] LABS: FINE GRANULAR CAST TNTC
[2018-03-30 12:00] VITALS: BP 130/80
[2018-03-30 16:00] VITALS: BP 140/90
[2018-03-30 20:00] VITALS: BP 116/90
[2018-03-31] VITALS: BP 116/60
[2018-03-31 08:00] VITALS: BP 134/98
[2018-03-31 09:23] LABS: CREATININE 1.51 mg/dL (0.70-1.30); POTASSIUM 4.7 mmol/L (3.5-5.1)
== END 2018-03-31 12:00 | disposition home or self-care (01) | DRG 682 ==
LOC: ED 18:35 → 5E 21:34 → EDHOLD 21:34 → 5E 22:11
PROVIDERS: Family Medicine; Internal Medicine; Nurse Practitioner Family; Student in an Organized Health Care Education/Training Program
DX: N17.0 Acute kidney failure with tubular necrosis (principal); J96.21 Acute and chronic respiratory failure with hypoxia; E87.8 Other disorders of electrolyte and fluid balance, not elsewhere classified; E87.1 Hypo-osmolality and hyponatremia; I50.32 Chronic diastolic (congestive) heart failure; Z68.44 Body mass index [BMI] 60.0-69.9, adult; I11.0 Hypertensive heart disease with heart failure; K21.9 Gastro-esophageal reflux disease without esophagitis; R62.7 Adult failure to thrive; J44.9 Chronic obstructive pulmonary disease, unspecified; E11.65 Type 2 diabetes mellitus with hyperglycemia; E78.00 Pure hypercholesterolemia, unspecified; G47.33 Obstructive sleep apnea (adult) (pediatric); R26.2 Difficulty in walking, not elsewhere classified; E55.9 Vitamin D deficiency, unspecified; I25.10 Atherosclerotic heart disease of native coronary artery without angina pectoris; E66.01 Morbid (severe) obesity due to excess calories; D72.829 Elevated white blood cell count, unspecified; Z83.3 Family history of diabetes mellitus; Z79.4 Long term (current) use of insulin; Z99.81 Dependence on supplemental oxygen; Z82.3 Family history of stroke; Z79.899 Other long term (current) drug therapy

== ENCOUNTER → 2018-06-23 | Outpatient (CLI) | payer MEDICARE, MEDICAID ==
[~2018-06-23] MED LIST changes: +ENALAPRIL MALEA20 MG PO; +GLIPIZIDE10 M2 PO; +VITAMIN D-32000 UNIT PO
[2018-06-23 13:43] LABS: BASO # 0.1 10*3/uL (0.0-0.1); BASO % 0.8 % (0.0-1.0); EOS # 0.3 10*3/uL (0.0-0.4); EOS % 2.9 % (1.0-4.0); HEMATOCRIT 44.1 % (42.0-52.0); HEMOGLOBIN 14.4 g/dl (14.0-18.0); LYMPH # 2.4 10*3/uL (1.3-4.4); LYMPH % 26.6 % (27.0-41.0); MEAN CELL VOLUME 79.6 fl (80.0-94.0); MEAN CORPUSCULAR HGB CONC 32.7 g/dl (33.0-37.0); MEAN PLATELET VOLUME 11.7 fl (9.6-12.3); MONO # 1.1 10*3/uL (0.1-1.0); MONO % 11.9 % (3.0-9.0); NEUT # 5.2 10*3/uL (2.3-7.9); NEUT % 57.4 % (47.0-73.0); PLATELET COUNT AUTOMATED 274 10*3/uL (130-400); RED BLOOD COUNT 5.54 10*6/uL (4.50-5.90); RED CELL DISTRI WIDTH 17.4 % (0-14.5); WHITE BLOOD COUNT 9.1 10*3/uL (4.8-10.8)
[2018-06-23 13:47] LABS: URINE CREATININE RANDOM 63.3 mg/dL
[2018-06-23 13:50] LABS: BILIRUBIN NEGATIVE (NEGATIVE); BLOOD TRACE-LYSED (NEGATIVE); CLARITY CLEAR (CLEAR); COLOR YELLOW (YELLOW); GLUCOSE NEGATIVE (NEGATIVE); KETONE NEGATIVE (NEGATIVE); LEUKO ESTERASE NEGATIVE (NEGATIVE); NITRITE NEGATIVE (NEGATIVE); SPECIFIC GRAVITY 1.015 (1.005-1.030); UROBILINOGEN 0.2 E.U./dl (0.2-1.0)
[2018-06-23 13:56] LABS: BACTERIA TRACE; WBC 0-2 wbc/hpf (0-5)
[2018-06-23 14:07] LABS: ALBUMIN 3.5 gm/dl (3.1-4.5); BUN 27 mg/dl (7-24); CHLORIDE 98 mmol/L (98-107); CREATININE 1.41 mg/dL (0.70-1.30); PHOSPHOROUS 3.3 mg/dL (2.5-4.9); POTASSIUM 4.5 mmol/L (3.5-5.1); SODIUM 137 mmol/L (136-145)
[2018-06-23 14:35] LABS: PTH INTACT 41.6 pg/mL (18.5-88.0); VITAMIN D, 25-HYDROXY 23.4 ng/mL (30-100)
== END | disposition home or self-care (01) ==
LOC: LAB 12:09
PROVIDERS: Internal Medicine Nephrology
DX: N18.3 Chronic kidney disease, stage 3 (moderate) (principal); N25.81 Secondary hyperparathyroidism of renal origin; E55.9 Vitamin D deficiency, unspecified; Z79.899 Other long term (current) drug therapy

== ENCOUNTER 2018-06-27 13:33 | Emergency (ER) | payer MEDICARE, MEDICAID ==
[~2018-06-27] VITALS: Ht 172.7 cm; Wt 147.4 kg
--- NOTE | ~2018-06-27 | EKG ---
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: Roxanna Portillo : 1950 Requested By: ALEN GRAHAM Order Number: [id number] Reading MD: Ricardo Handley MD Measurements Intervals [place] Rate: 77 P: 56 UT: 182 QRS: -28 QRSD: 96 T: 48 QT: 397 QTc: 450 Interpretive Statements Sinus rhythm Borderline left axis deviation Minimal ST elevation, anterolateral leads Baseline wander in lead(s) V2,V5 Compared to ECG 03/30/2018 05:54:22 ST (T wave) deviation still present No significant change Electronically Signed On 06-27-2018 18:48:19 PDT by Ricardo Handley MD CM:EKGRPT:ELECTROCARDIOGRAM REPORT [id number] 1848 ALEN GRAHAM EPIPHJULIANA DRAFT REPORT ALEN GRAHAM
[2018-06-27 14:11] VITALS: BP 129/63
[2018-06-27 14:32] LABS: BASO % 0.5 % (0.0-1.0); EOS # 0.2 10*3/uL (0.0-0.4); EOS % 2.7 % (1.0-4.0); HEMOGLOBIN 13.8 g/dl (14.0-18.0); LYMPH # 2.6 10*3/uL (1.3-4.4); LYMPH % 31.8 % (27.0-41.0); MEAN CELL VOLUME 79.2 fl (80.0-94.0); MEAN CORPUSCULAR HGB 26.6 pg (27.0-31.0); MEAN CORPUSCULAR HGB CONC 33.7 g/dl (33.0-37.0); MEAN PLATELET VOLUME 10.9 fl (9.6-12.3); MONO # 0.9 10*3/uL (0.1-1.0); MONO % 11.2 % (3.0-9.0); NEUT # 4.3 10*3/uL (2.3-7.9); NEUT % 53.6 % (47.0-73.0); PLATELET COUNT AUTOMATED 257 10*3/uL (130-400); RED BLOOD COUNT 5.18 10*6/uL (4.50-5.90); RED CELL DISTRI WIDTH 17.1 % (0-14.5)
[2018-06-27 14:49] LABS: ALBUMIN 3.4 gm/dl (3.1-4.5); CREATININE 1.52 mg/dL (0.70-1.30); POTASSIUM 4.3 mmol/L (3.5-5.1); TOTAL PROTEIN 8.1 gm/dL (6.4-8.2)
== END 2018-06-27 16:08 | disposition home or self-care (01) ==
LOC: ED 13:33
PROVIDERS: Student in an Organized Health Care Education/Training Program
DX: R06.00 Dyspnea, unspecified (principal); I25.10 Atherosclerotic heart disease of native coronary artery without angina pectoris; I11.0 Hypertensive heart disease with heart failure; I50.32 Chronic diastolic (congestive) heart failure; J44.9 Chronic obstructive pulmonary disease, unspecified; K21.9 Gastro-esophageal reflux disease without esophagitis; E78.00 Pure hypercholesterolemia, unspecified; E66.01 Morbid (severe) obesity due to excess calories; E11.9 Type 2 diabetes mellitus without complications; Z98.890 Other specified postprocedural states; Z79.4 Long term (current) use of insulin; Z79.84 Long term (current) use of oral hypoglycemic drugs; Z79.899 Other long term (current) drug therapy

== ENCOUNTER → 2018-06-27 | Outpatient (CLI) | payer MEDICARE, MEDICAID | END | disposition home or self-care (01) | LOC: CARD 12:39 | DX: R06.09 Other forms of dyspnea (principal) ==

== ENCOUNTER → 2018-10-13 | Outpatient (CLI) | payer MEDICARE, MEDICAID ==
[2018-10-13 12:34] LABS: ALBUMIN 3.4 gm/dl (3.1-4.5); ALKALINE PHOSPHATASE 88 U/L (45-117); BILIRUBIN, DIRECT < 0.1 mg/dL (0.0-0.2); BUN 37 mg/dl (7-24); CHLORIDE 100 mmol/L (98-107); CHOLESTEROL 159 mg/dL (<200); CREATININE 1.81 mg/dL (0.70-1.30); HDL CHOLESTEROL 41 mg/dl (40-60); LDL CHOLESTEROL 70 mg/dL (9-159); POTASSIUM 4.3 mmol/L (3.5-5.1); SGOT/AST 19 IU/L (3-35); SGPT/ALT 32 U/L (12-78); SODIUM 138 mmol/L (136-145); TOTAL PROTEIN 8.1 gm/dL (6.4-8.2); TRIGLYCERIDES 241 mg/dl (<150); VLDL CHOLESTEROL 48 mg/dL (6-40)
[2018-10-13 12:54] LABS: BILIRUBIN NEGATIVE (NEGATIVE); BLOOD TRACE-INTACT (NEGATIVE); CLARITY CLEAR (CLEAR); COLOR YELLOW (YELLOW); GLUCOSE NEGATIVE (NEGATIVE); KETONE NEGATIVE (NEGATIVE); LEUKO ESTERASE NEGATIVE (NEGATIVE); NITRITE NEGATIVE (NEGATIVE); UROBILINOGEN 0.2 E.U./dl (0.2-1.0)
[2018-10-13 13:11] LABS: WBC 0-2 wbc/hpf (0-5)
== END | disposition home or self-care (01) ==
LOC: LAB 11:38
PROVIDERS: Internal Medicine
DX: E11.65 Type 2 diabetes mellitus with hyperglycemia (principal); E78.5 Hyperlipidemia, unspecified; E55.9 Vitamin D deficiency, unspecified; R41.0 Disorientation, unspecified

== ENCOUNTER 2019-03-29 14:52 | Inpatient (IN) | payer OTHER, MEDICAID ==
[~2019-03-29] VITALS: Ht 177.8 cm; Wt 144.3 kg
--- NOTE | ~2019-03-29 | PR ---
[place], [place] PROGRESS NOTE NAME: PILO KOROMA UNIT #: [id number] ROOM: 420 DOCTOR: AGUS PARKER MD BIRTHDATE: [birth year] DOS: 04/01/2019 PULMONARY PROGRESS NOTE SUBJECTIVE: The patient was noted comfortable at this time, resting on the bed, using the BiPAP. He denies symptoms of chest pain, fever, or chills. Respiratory symptoms continue to resolve with reduction in symptoms of coughing and shortness of breath reported by the patient. The patient denies symptoms of fever or chills. Denies symptoms of hemoptysis. He has been noted continue negative fluid balance gradually as well with reduction in edema of the lower extremities reported. PHYSICAL EXAMINATION: VITAL SIGNS: Normal temperature this morning, respiratory rate of 20, heart rate of 77, and blood pressure of 138/60. The pulse ox saturation on the BiPAP and on oxygen supplementation of 5 liters nasal cannula is 96% saturation. HEENT: Examination shows head was atraumatic. Eyes nonicterus. NECK: Supple. CARDIOVASCULAR SYSTEM: S1, S2 is audible. LUNGS: Without any wheeze or crackle at the present time. ABDOMEN: Soft, nontender. Bowel sounds present. EXTREMITIES: Resolving edema. IMPRESSION: 1. Improving acute exacerbation of chronic obstructive pulmonary disease, gradual and progressive at this time. 2. History of obstructive sleep apnea disorder. 3. Improving acute hypoxic respiratory failure. 4. Chronic morbid obesity. PLAN OF MANAGEMENT: Continuation of bronchodilators, oxygen supplementation. Titrate oxygen supplementation, maintain pulse ox saturation 92% or greater. Continue Solu-Medrol. [place], [place] PROGRESS NOTE NAME: PILO KOROMA UNIT #: [id number] ROOM: 420 DOCTOR: AGUS PARKER MD BIRTHDATE: [birth year] AGUS JORGE MD CM:PNTRANS 1107 0024 AGUS VEE MD 04/11/19 0843 interface
--- NOTE | ~2019-03-29 | PR ---
[place], [place] PROGRESS NOTE [id number] UN[facility] #: [id number] ROOM: 420 DOCTOR: AGUS PARKER MD BIRTHDATE: [birth year] DOS: 04/02/2019 PULMONARY PROGRESS NOTE SUBJECTIVE: The patient was seen and examined noted comfortable at this time. Continued to show reduction of the respiratory symptom and complains in the last 24 hours, there were no symptoms of fever, chills. Edema of the lower extremities continued to resolve gradually and progressively. This morning, the patient is sitting comfortable on the chair. OBJECTIVE: VITAL SIGNS: Normal temperature, respiratory rate 20, heart rate 80, blood pressure 130/74. The pulse oxygen saturation on 5 liters nasal cannula 99% saturation. HEENT: Examination shows head was atraumatic. Eyes nonicterus. NECK: Supple. CARDIOVASCULAR: S1, S2 audible. LUNGS: With improvement in air entry of the lungs was continued. ABDOMEN: Soft and obese. EXTREMITIES: Resolving edema. LABORATORY DATA: Negative fluid balance of 2.15 liters recorded in the last 24 hours. Chest x-ray that was done this morning was noted without any acute pulmonary infiltration. IMPRESSION: 1. Resolving acute exacerbation of chronic obstructive pulmonary disease, acute congestive heart failure gradually and progressively. 2. Morbid obesity. PLAN OF TREATMENT: Decrease Solu-Medrol 40 mg daily assess the home oxygen need in the next 24 hours. Potential discharge in the morning may be considered depending on further improvement and resolution of the acute respiratory symptoms. [place], [place] PROGRESS NOTE NAME: PILO KOROMA Maria R [id number] UNIT #: [id number] ROOM: 420 DOCTOR: AGUS PARKER MD BIRTHDATE: [birth year] AGUS JORGE MD CM:PNDENILSON 1252 37 AGUS VEE MD 04/02/191838 interface
--- NOTE | ~2019-03-29 | EKG ---
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
--- NOTE | ~2019-03-29 | EKG ---
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
--- NOTE | ~2019-03-29 | CON ---
[place], [place] REPORT OF CONSULTATION NAME: PILO KOROMA [facility] #: [id number] UNIT #: [id number] ROOM: 420 DOCTOR: AGUS PARKER MD BIRTHDATE: [birth year] DOS: 03/30/2019 PULMONARY CONSULTATION, EVALUATION AND MANAGEMENT REASON FOR CONSULTATION: Assess the patient's symptoms of shortness of breath, cough and other respiratory problem. The patient was independently seen and examined with [id number] encounter today. History was confirmed from the patient. Physical examination was performed. All the labs were reviewed. Assessment of today's visit was personally completed. Note done by the healthcare or medical was approved as well. HISTORY OF PRESENT ILLNESS: This is a 68-year-old -[place] male patient, very well known to me with history of uncomplicated severe persistent bronchial asthma, obstructive sleep apnea disorder, persistent daytime sleepiness was also noted in spite of regular use of the BiPAP. The patient was admitted to the hospital on the date of 03/29/2019. He came into the hospital on 03/29/2019 in the Emergency Room as the patient has been complaining of symptoms including shortness breath, coughing, which was present for 24 hours. The symptoms were noted significantly worsened seeking assessment in the Emergency Room. The patient was reporting cough with intermittent sputum expectoration of different quantity. Shortness of breath occurring with exertion. The sputum expectoration reported at different color yellowish to green at times with various quantity reported by the patient. However, he does not have any symptoms of hemoptysis. The patient denies symptoms of chest pain or any wheezing. He has been admitted to the hospital for further care. REVIEW OF SYSTEMS: CONSTITUTIONAL: Fatigue and tiredness reported without any fever or chills by the patient. EYES: Denies burning, redness, or tenderness. EARS, NOSE, THROAT SYMPTOMS: Denies sore throat, hoarseness, otalgia, postnasal drainage. CARDIOVASCULAR: The patient noted with some chronic edema of the lower extremity. There were no symptoms of palpitations or angina pain. GASTROINTESTINAL: Denies dysphagia, nausea, vomiting, diarrhea, abdominal pain, hematemesis, melena, or hematochezia. History of chronic severe obesity. The patient denies any abnormal weight loss history. SKIN: Denies abnormal lesions or rashes except chronic changes in the lower extremities. MUSCULOSKELETAL: No joint pain, redness, or tenderness. CENTRAL NERVOUS SYSTEM: Denies dizziness, headache, diplopia, syncopal episodes. Remaining systems were reviewed with the patient, they were noted all negative. PAST MEDICAL HISTORY: 1. History of uncomplicated severe persistent bronchial asthma. 2. Obstructive sleep apnea disorder. 3. Type 2 diabetes mellitus. [place], [place] REPORT OF CONSULTATION NAME: PILO KOROMA UNIT #: [id number] ROOM: [place] DOCTOR: AGUS PARKER MD BIRTHDATE: [birth year] 4. Essential hypertension. 5. Congestive heart failure, diastolic dysfunction. PAST SURGICAL HISTORY: Noted as T and A. SOCIAL HISTORY: The patient is , has 2 children, lives at home. Denies history of alcohol use or illicit drug use. Tobacco use reported from the age of 24 years at 2 packs of cigarettes per day, discontinued in 1984. FAMILY HISTORY: The patient's father at complication of stroke. Mother at 83 year of age from natural causes. HOME MEDICATIONS: Used by the patient were noted as Victoza shots, vitamin D, Lipitor, 75/25 mixture of Humalog, glipizide, omeprazole, albuterol Nebulizer treatment, Breo Ellipta 200/25 one a day, Ventolin p.r.n. inhaler use and CPAP at 18 cm of water. CURRENT MEDICATIONS: Which were administered for this patient on this hospitalization were reviewed as active use Lipitor, enalapril, vitamin D, Lovenox for DVT prophylaxis, Solu-Medrol 40 mg every 12 hours, DuoNeb, IV Rocephin, Zithromax, and some other p.r.n. meds. PHYSICAL EXAMINATION: GENERAL: This is a 68-year-old -[place] male patient who has been currently noted to be awake and alert this morning without any acute distress this morning of assessment. Height of 5 feet 10 inches, weight of 327, BMI of 46. VITAL SIGNS: For the patient recorded, temperature 99 degrees Fahrenheit, normal temperature, respiratory rate range between 24-18, heart rate 94-105, blood pressure 152/69-168/69. Pulse oxygen saturation recorded on 4 liter nasal cannula at 96% saturation on room air the patient's presentation was 85%. With the BiPAP, the patient's pulse ox saturation recorded 98%. HEENT: Examination shows head was atraumatic. Eyes nonicterus. NECK: Supple. CARDIOVASCULAR: S1, S2 is audible. LUNGS: Noted patient with decreased breath sounds noted in the lungs bilaterally with scattered expiratory wheezing, no crackles. ABDOMEN: Soft, obese, nontender. EXTREMITIES: Chronic changes with chronic partial lymphedema with dryness of the skin. There were no visible open areas. MUSCULOSKELETAL: Without acute deformities. CENTRAL NERVOUS SYSTEM: Cranial nerves 2-12 intact. LABORATORY DATA: CBC that was done yesterday in the Emergency Department, WBC count 12.1, hemoglobin 13.2, platelet count was normal, 4% eosinophils for the were also noted. CMP that was done on 03/29/2019, glucose 358, BUN 21, creatinine 1.65. Sodium 135. PTT noted INR of 35 and PTT normal. The lactic acid noted as normal. The BMP that was done 712, glucose 326, BUN 20, creatinine 1.48. The CBC that was done this morning, WBC count normal, hemoglobin 13.1, platelet count 349,000. One view chest x-ray in the Emergency [place], [place] REPORT OF CONSULTATION NAME: PILO KOROMA UNIT #: [id number] ROOM: 420 DOCTOR: LUISITO VEE MD,[facility] BIRTHDATE: [birth year] Room reviewed from the PACS images does not show any acute pulmonary infiltrates. IMPRESSION: The patient who has been currently admitted to the hospital with: 1. Acute hypoxic respiratory failure secondary to acute exacerbation of bronchial asthma and possibly acute bronchitis. Whether viral or bacterial at this time was unclear. 2. The patient with severe morbid obesity. 3. Acute kidney injury that was noted on admission secondary to intravascular volume depletion. 4. Severe morbid obesity. 5. Obstructive sleep apnea disorder as well. 6. History of essential hypertension as well. 7. Uncontrolled diabetes mellitus was noted as well on presentation with some worsening with use of corticosteroids. PLAN OF MANAGEMENT: The patient is responding to the treatment with current dose of corticosteroids that will be continued gradual reduction dose will be done based on progression of the illness. The sputum for Gram stain and culture will be ordered. Continue medical management of diabetes mellitus as well. Continuation of the bronchodilator as well. Additional treatment changes will be made for this patient based on the progression of the illness. The patient was started on the BiPAP during this hospitalization for management of his respiratory failure and to manage his sleep apnea disorder. The BiPAP will be used at nighttime, p.r.n during the day if necessary. Bronchodilator will be continued. Other additional treatment changes will be made based on progression of illness. The kidney function noted better than yesterday with close monitoring to be continued. Supportive therapy, plan of management. Usual care, plan of treatment, other therapies as in progress. Thank you for allowing me to participate in the care of this patient. AGUS JORGE MD CM:CONSTR:REPORT OF CONSULTATION 1111 04/11/19 0838 interface
--- NOTE | ~2019-03-29 | PR ---
[place], [place] PROGRESS NOTE NAME: [facility] KOR[id number] UNIT #: [id number] ROOM: 420 DOCTOR: AGUS PARKER MD BIRTHDATE: [birth year] DOS: 03/31/2019 SUBJECTIVE: He has been noted reduction in respiratory symptom, coughing, shortness of breath. No symptoms of wheezing. Denies symptoms of chest pain or hemoptysis. He had been sitting on the chair this morning of assessment. The edema of the lower extremity is also noted partially decreased. PHYSICAL EXAMINATION: GENERAL: At this time, the patient was noted comfortable this morning. VITAL SIGNS: Normal temperature, respiratory rate 20, heart rate of 89, blood pressure 132/72. Intake of 1780. Fluid balance of 1620 mL. Pulse ox on 5 liter nasal cannula, maintained 95% saturation. HEENT: Examination shows head was atraumatic. Eyes nonicterus. NECK: Supple. Chronic obesity. CARDIOVASCULAR: S1, S2 is audible. EXTREMITIES: Noted reduction of the edema with some chronic changes still noted. LUNGS: There were no crackles. The scattered wheezing noted in the lungs, auscultation with decreased breath sounds. ABDOMEN: Soft, obese. LABORATORY DATA: Blood cultures on 03/29/2019 noted no bacterial growth. CBC this morning, WBC count 12.5. BMP that was done, BUN of 34, creatinine 1.67. Glucose 465. IMPRESSION: 1. Resolving acute exacerbation of chronic obstructive pulmonary disease, acute hypoxic respiratory failure. 2. Morbid obesity. 3. The patient with acute congestive heart failure as well. PLAN OF TREATMENT: Decrease the Solu-Medrol at the present time as the wheezing was decreased. He was also noted with uncontrolled diabetes mellitus. Continuation of bronchodilator therapy, plan of management. Titrate oxygen supplementation, maintain pulse ox 92%. Continue the BiPAP as previously ordered. [place], [place] PROGRESS NOTE NAME: PILO KOROMA UNIT #: [id number] ROOM: 420 DOCTOR: AGUS PARKER MD BIRTHDATE: [birth year] AGUS JORGE MD CM:CHRISTINE Barrett: 03/31/19 1301 05 AGUS VEE MD 04/11/19 0841 interface
--- NOTE | ~2019-03-29 | PR ---
[place], [place] PROGRESS NOTE [facility]OR[id number] UNIT #: [id number] ROOM: 420 DOCTOR: AGUS PARKER MD BIRTHDATE: [birth year] DOS: 04/03/2019 PULMONARY PROGRESS NOTE SUBJECTIVE: The patient was noted comfortable at this time, resting on the bed this morning of assessment, has not been noted with any ongoing acute new respiratory complaints. Coughing has been subsiding. Edema of lower extremity markedly improved. Shortness of breath was resolving. Using the BiPAP as ordered previously and oxygen supplementation. PHYSICAL EXAMINATION: GENERAL: The patient comfortably sitting on the chair this morning of assessment. VITAL SIGNS: Normal temperature, respiratory rate 20, heart rate 89, blood pressure 129/77. The pulse oxygen saturation on 3 liters nasal cannula 98% saturation. HEENT: Examination shows chronic obesity. Neck was supple. Head was atraumatic. Eyes nonicterus. CARDIOVASCULAR: S1, S2 audible. LUNGS: Without any wheeze or crackles. ABDOMEN: Soft, nontender. EXTREMITIES: Resolving edema. IMPRESSION: Improving acute congestive heart failure, progressive resolving acute hypoxic respiratory failure and exacerbation of chronic obstructive pulmonary disease, gradually progressively. PLAN OF MANAGEMENT: Assessment of home oxygen was done yesterday requiring high amount of oxygen supplementation 5-6 liters nasal cannula. The patient was assessed again this morning noted only oxygen requirement up to 3 liters nasal cannula. The patient will be planned for home discharge on oral medication as a tapering prednisone, diuretics and others. He will continue CPAP from the home setting. Outpatient followup to be established post-discharge. [place], [place] PROGRESS NOTE NAME: PILO KOROMA Maria R UNIT #: [id number] ROOM: 420 DOCTOR: AGUS PARKER MD BIRTHDATE: [birth year] AGUS JORGE MD CM:PNTRANS [id number] [id number] AGUS VEE MD 04/04/19 005 interface
--- NOTE | ~2019-03-29 | EKG ---
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 : 1950 Requested By: FRANKLYN CARTWRIGHT Order Number: [id number] Reading MD: Aida Munoz MD Measurements Intervals [place] Rate: 101 P: 51 CA: 174 QRS: -29 QRSD: 91 T: 77 QT: 347 QTc: 450 Interpretive Statements Sinus tachycardia Atrial premature complex Borderline left axis deviation Abnormal R-wave progression, late transition Borderline ST elevation, lateral leads Baseline wander in lead(s) V6 Compared to ECG 06/27/2018 14:49:17 Atrial premature complex(es) now present Sinus rhythm no longer present ST (T wave) deviation still present Electronically Signed On 03-30-2019 5:01:54 PDT by Aida Munoz MD CM:EKGRPT:ELECTROCARDIOGRAM REPORT [id number] FRANKLYN HUTCHINSON DRAFT REPORT FRANKLYN CARTWRIGHT M.D.
--- NOTE | ~2019-03-29 | CON ---
[place], [place] REPORT OF CONSULTATION NAME: PILO KOROMA UNIT #: [id number] ROOM: 416 DOCTOR: GERARDO ROYAL BIRTHDATE: [birth year] DOS: 03/30/2019 PULMONARY CONSULTATION EVALUATION AND MANAGEMENT REASON FOR CONSULTATION: To assess the patient for recurrence of respiratory symptoms. HISTORY OF PRESENT ILLNESS: This is a 68-year-old -[place] male that follows with Dr. Jorge with a history of bronchial asthma. The patient presented to the hospital in the Emergency Room yesterday with symptoms of shortness of breath and cough productive of white sputum. He has been admitted to the hospital for further management. The patient was seen this morning and was still reporting some symptoms of cough and shortness of breath. REVIEW OF SYSTEMS: CONSTITUTIONAL: Fatigue and tiredness reported. Denies symptoms of fever or chills. EYES: Denies burning, redness, or tenderness. EARS, NOSE AND THROAT: Denies sore throat, hoarseness, otalgia, postnasal drainage or epistaxis. CARDIOVASCULAR: Denies anginal pain, edema or pain in the lower extremities. GASTROINTESTINAL: Denies dysphagia, nausea, vomiting, diarrhea, abdominal pain, hematemesis, melena, or hematochezia. GENITOURINARY: No dysuria, suprapubic pain, or hematuria. MUSCULOSKELETAL: Denies acute joint pain, redness, or tenderness. SKIN: Denies lesions or rashes. CENTRAL NERVOUS SYSTEM: No dizziness, headache, diplopia or syncopal episodes. Remaining systems were reviewed with the patient and they were all noted negative. PAST MEDICAL HISTORY: 1. Mild intermittent bronchial asthma. 2. Chronic diastolic congestive heart failure. 3. Coronary artery disease. 4. Essential hypertension. 5. GERD. 6. Obstructive sleep apnea. 7. Type 2 diabetes mellitus. SOCIAL HISTORY: Does not drink alcohol, use illicit drugs, or use tobacco products. PAST SURGICAL HISTORY: Noted as tonsillectomy and adenoidectomy. FAMILY HISTORY: Father in his 50s of a stroke. Mother alive at age 87 with diabetes mellitus. HOME MEDICATIONS: Atorvastatin, enalapril, glipizide, omeprazole, DuoNebs and insulin. [place], [place] REPORT OF CONSULTATION NAME: KOROMAGUALBERTOYumiko Heck UNIT #: [id number] ROOM: [facility] DOCTOR: GERARDO ROYAL BIRTHDATE: [birth year] CURRENT MEDICATIONS: Administered this hospitalization were reviewed as DuoNeb, Solu-Medrol, azithromycin, Rocephin, Humalog, enalapril, Lovenox, and other p.r.n. medications. ALLERGIES: No known drug allergies. PHYSICAL EXAMINATION: GENERAL: This is a 68-year-old male, currently noted lying comfortably in his bed. VITAL SIGNS: Height was 5 feet 10 inches, weight of 148 kilograms with BMI 46.9. Normal temperature, pulse 87, respiratory rate 20, oxygen saturation 90% on 4 liters. HEENT: Head is atraumatic. Eyes, nonicterus. NECK: Supple. CARDIOVASCULAR: S1, S2 is audible. LUNGS: Noted with moderate decreased breath sounds in the lungs without any crackles, frequent wheezing. ABDOMEN: Soft and nontender. Morbid obesity. Bowel sounds present. CENTRAL NERVOUS SYSTEM: Cranial nerves 2-12 are intact. No focal deficit visible. SKIN: No skin lesions or rashes. EXTREMITIES: No edema, clubbing, or cyanosis. MUSCULOSKELETAL: Without any acute deformities. LABORATORY DATA: CBC that was done this morning, white blood cell count was normal, hemoglobin 13.1, platelet count was normal. PT, PTT this morning was normal. CMP: BUN 20 and creatinine 1.48, glucose 326. Troponin normal. AST elevated. The chest x-ray, 1 view, which was done, does not show any evidence of acute pulmonary infiltration or other findings. IMPRESSION: 1. Asthmatic bronchitis exacerbation. 2. Stage 3 chronic kidney disease. 3. Morbid obesity. 4. Transaminitis, significance unknown. PLAN OF MANAGEMENT: Continuation of bronchodilators, oxygen supplementation for this patient as well as Solu-Medrol corticosteroids as ordered. Continue Rocephin and azithromycin as antibiotics. Continue home medications. Blood cultures pending. Usual care. Other additional treatment changes will be made for the patient based on the progression of the illness, supportive care and plan of management and therapies as ongoing. Dr. GERARDO ROYAL, [place], [place] REPORT OF CONSULTATION NAME: PILO KOROMA Maria R UNIT #: [id number] ROOM: 416 DOCTOR: GERARDO ROYAL BIRTHDATE: [birth year] AGUS JORGE MD CM:CONSTR:REPORT OF CONSULTATION 1046 03/30/19 1417 interface
[~2019-03-29 14:52] MED LIST changes: +VITAMIN D-32000 UNI1 PO; -VITAMIN D-32000 UNIT PO
[2019-03-29 14:56] VITALS: BP 168/69
[2019-03-29 15:28] LABS: HEMOGLOBIN 13.2 g/dl (14.0-18.0); MEAN CELL VOLUME 79.1 fl (80.0-94.0); MEAN CORPUSCULAR HGB 26.1 pg (27.0-31.0); MEAN PLATELET VOLUME 10.5 fl (9.6-12.3); PLATELET COUNT AUTOMATED 260 10*3/uL (130-400); RED BLOOD COUNT 5.06 10*6/uL (4.50-5.90); RED CELL DISTRI WIDTH 16.7 % (0-14.5); WHITE BLOOD COUNT 12.1 10*3/uL (4.8-10.8)
[2019-03-29 15:46] LABS: ALBUMIN 2.7 gm/dl (3.1-4.5); ALKALINE PHOSPHATASE 115 U/L (45-117); BUN 21 mg/dl (7-24); CHLORIDE 98 mmol/L (98-107); CREATININE 1.65 mg/dL (0.70-1.30); POTASSIUM 4.5 mmol/L (3.5-5.1); SGOT/AST 37 IU/L (3-35); SGPT/ALT 57 U/L (12-78); SODIUM 135 mmol/L (136-145); TOTAL PROTEIN 7.8 gm/dL (6.4-8.2)
[2019-03-29 15:48] LABS: TROPONIN I < 0.015 ng/ml (<0.045)
[2019-03-29 16:00] VITALS: BP 149/84
[2019-03-29 16:31] LABS: ACT PARTIAL THROMBO TIME 35.3 SECONDS (20.0-32.1)
[2019-03-29 16:33] LABS: BASOPHILS 3 % (0-1); TOTAL CELLS COUNTED 100 #CELLS
[2019-03-29 16:35] LABS: PLATELET SUFFICIENCY NORMAL (NORMAL)
[2019-03-29 18:50] VITALS: BP 156/73
--- NOTE | 2019-03-29 18:50 | NUR ---
A 68, admitted to , under the services of LAISHA Turner DO with a diagnosis of BRONCHITIS, ASTHMATIC DYSPNEA. Chief complaint is SOB. Patient arrived via bed from ER. Monitor applied. Initial assessment completed. Vital signs taken and recorded. LAISHA TURNER DO notified of admission to the unit. Orders received. See assessment for past medical history, medications and allergies. Patient oriented to unit. Clothing/patient valuable form completed. AIDE CHEN
--- NOTE | 2019-03-29 19:37 | NUR ---
INFORMED THAT PATIENT DOESN;T RECALL MED. MAJORITY OF MEDICATIONS VERIFIED BY CLAIM HX, EXCEPT INSULINS AND ENALAPRIL. INFORMED THAT PATIENT WEARS CPAP AT NIGHT, DOESN'T RECALL SETTINGS. STATED OK.
--- NOTE | 2019-03-29 19:57 | NUR ---
DR. JORGE NOTIFIED OF CONSULT. ORDERS FOR BIPAP RECEIVED.
[2019-03-30] VITALS: BP 152/69
--- NOTE | 2019-03-30 01:58 | NUR ---
24 HR chart check completed.
[2019-03-30 06:32] LABS: CREATININE 1.48 mg/dL (0.70-1.30)
[2019-03-30 06:40] LABS: BASO % 0.3 % (0.0-1.0); HEMATOCRIT 40.3 % (42.0-52.0); HEMOGLOBIN 13.1 g/dl (14.0-18.0); LYMPH # 1.1 10*3/uL (1.3-4.4); MEAN CORPUSCULAR HGB CONC 32.5 g/dl (33.0-37.0); MONO # 0.4 10*3/uL (0.1-1.0); MONO % 3.5 % (3.0-9.0); NEUT # 9.2 10*3/uL (2.3-7.9); NEUT % 85.8 % (47.0-73.0); PLATELET COUNT AUTOMATED 249 10*3/uL (130-400); RED BLOOD COUNT 5.04 10*6/uL (4.50-5.90); RED CELL DISTRI WIDTH 16.7 % (0-14.5); WHITE BLOOD COUNT 10.7 10*3/uL (4.8-10.8)
[2019-03-30 06:43] LABS: THYROID STIM HORMONE (HS) 0.555 uIU/ml (0.358-4.75)
--- NOTE | 2019-03-30 07:30 | NUR ---
PATIENT TAKEN OFF OF BI-PAP, PLACED ON 4 L/M.
[2019-03-30 08:00] VITALS: BP 158/72
--- NOTE | 2019-03-30 09:00 | NUR ---
Alternative Education Teacher in to talk to patient. Patient states lives at home with alone. There are no steps in the home. Physician: saravanan [facility]acy: [facility] Home health services: none Patient's level of ADLs: INDEPENDENT Patient has working utilities: all working DME: home oxygen from [facility], Follow-up physician's appointment after d/c: will be made by [facility] hospitalist nurse director upon discharge Does patient want to access PORTAL?: no Discharge plan discussed with patient, patient lives at home alone, he states he is independent in adls and ambulation, he has home oxygen and portable tanks from [facility], patient states he will be returning home when able and denies any home needs at this time LUCAS STEEN
[2019-03-30] MEDS ORDERED: VICTOZA 3-PAK6 MG/ML SQ (09:24)
[2019-03-30] MEDS ORDERED: HUMALOG 751 UNIT/0.0 SQ (09:25)
--- NOTE | 2019-03-30 09:26 | NUR ---
INFORMED THAT HOME MEDS ARE VERIFIED BY PATIENTS PHARMACY
[2019-03-30 12:00] VITALS: BP 166/81
--- NOTE | 2019-03-30 13:35 | NUR ---
PATIENT ATTEMPTED TO GET OUT OF BED & RIPPED BIPAP OFF, PATIENT IMMEDIATELY DESATS TO MID 80%, PLACED ON O2 5L, DEEP BR EXERCISING PATIENT SPO2 92-93%. PATIENT WILL BE MOVED CLOSER TO DESK FOR SAFETY, BELLHOP CAPTAIN MARZENA AWARE.
[2019-03-30 15:16] VITALS: BP 152/84
--- NOTE | 2019-03-30 17:23 | NUR ---
INFORMED THAT PATIENT BGM HAVE BEEN HIGH IN THE 300'S TO MID 400'S. STATES TO PLACE ORDER 10UNITS [facility].
[2019-03-30 20:00] VITALS: BP 121/50
--- NOTE | 2019-03-30 21:00 | NUR ---
AWARE OF BGM OF 552. STATES TO PROVIDED SSI AND NEW ORDER OF LANTUSDEBBIE IN AN HOUR.
--- NOTE | 2019-03-30 22:19 | NUR ---
INFROMED OF NEW BGM OF 470. STATED NO NEWORDERS AT THIS HIS AND TO SEE HOW LANTUS TAKES EFFECT
[2019-03-31] VITALS: BP 121/51
[2019-03-31 06:41] LABS: BASO % 0.2 % (0.0-1.0); HEMATOCRIT 42.1 % (42.0-52.0); HEMOGLOBIN 13.5 g/dl (14.0-18.0); LYMPH # 1.2 10*3/uL (1.3-4.4); LYMPH % 9.9 % (27.0-41.0); MEAN CELL VOLUME 80.3 fl (80.0-94.0); MEAN CORPUSCULAR HGB 25.8 pg (27.0-31.0); MEAN CORPUSCULAR HGB CONC 32.1 g/dl (33.0-37.0); MEAN PLATELET VOLUME 11.4 fl (9.6-12.3); MONO # 0.8 10*3/uL (0.1-1.0); MONO % 6.4 % (3.0-9.0); NEUT # 10.4 10*3/uL (2.3-7.9); PLATELET COUNT AUTOMATED 285 10*3/uL (130-400); RED BLOOD COUNT 5.24 10*6/uL (4.50-5.90); RED CELL DISTRI WIDTH 16.4 % (0-14.5); WHITE BLOOD COUNT 12.5 10*3/uL (4.8-10.8)
[2019-03-31 06:58] LABS: CREATININE 1.67 mg/dL (0.70-1.30)
[2019-03-31 08:00] VITALS: BP 132/72
--- NOTE | 2019-03-31 08:50 | NUR ---
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 STATES OK TO D/C.
[2019-03-31 12:01] VITALS: BP 128/72
--- NOTE | 2019-03-31 12:30 | NUR ---
PHYSICAL THERAPY PATIENT SEEN IN ROOM ON 4 FOR SCREEN TODAY AND WAS FOUND TO BE UP AD SHAKIR WITH NO INDICATIONS FOR PT AT THIS TIME. STATES HE DOES NOT NEED PT AND IS GETTING AROUND FINE. THANK YOU FOR REFERRAL NILDA COHN PT
[2019-03-31 16:24] VITALS: BP 107/83
[2019-03-31 20:00] VITALS: BP 145/69
[2019-04-01] VITALS: BP 146/65
--- NOTE | 2019-04-01 04:10 | NUR ---
24 HR chart check completed.
[2019-04-01 07:17] LABS: BASO % 0.2 % (0.0-1.0); HEMATOCRIT 40.6 % (42.0-52.0); LYMPH # 1.6 10*3/uL (1.3-4.4); LYMPH % 13.9 % (27.0-41.0); MEAN CELL VOLUME 79.9 fl (80.0-94.0); MEAN CORPUSCULAR HGB 25.6 pg (27.0-31.0); MONO # 0.7 10*3/uL (0.1-1.0); MONO % 6.1 % (3.0-9.0); NEUT # 8.9 10*3/uL (2.3-7.9); NUCLEATED RED BLOOD CELL 0.2 % (0.0-0.0); PLATELET COUNT AUTOMATED 307 10*3/uL (130-400); RED BLOOD COUNT 5.08 10*6/uL (4.50-5.90); RED CELL DISTRI WIDTH 16.1 % (0-14.5); WHITE BLOOD COUNT 11.2 10*3/uL (4.8-10.8)
[2019-04-01 07:46] LABS: ALBUMIN 2.5 gm/dl (3.1-4.5); CREATININE 1.48 mg/dL (0.70-1.30); PHOSPHOROUS 3.4 mg/dL (2.5-4.9); POTASSIUM 5.4 mmol/L (3.5-5.1); TOTAL PROTEIN 7.6 gm/dL (6.4-8.2)
[2019-04-01 08:00] VITALS: BP 138/60
--- NOTE | 2019-04-01 11:40 | NUR ---
MEDICATED WITH MAALOX FOR COMPLAINTS OF UPSET STOMACH. WILL MONITOR FOR EFFECTIVENESS.
--- NOTE | 2019-04-01 11:42 | NUR ---
PT'S BLOOD GLUCOSE LEVEL 404, MEDICATED WITH ADDITIONAL 10 UNITS OF INSULIN PER ORDER FROM KEATON TAVARES.
[2019-04-01 12:00] VITALS: BP 157/86
--- NOTE | 2019-04-01 13:00 | NUR ---
PT SITTING UP IN CHAIR, STATES HIS STOMACH IS FEELING BETTER.
[2019-04-01 16:00] VITALS: BP 150/86
--- NOTE | 2019-04-01 19:29 | NUR ---
24 HR chart check completed.
[2019-04-01 20:00] VITALS: BP 124/84
[2019-04-02] VITALS: BP 136/82
--- NOTE | 2019-04-02 08:22 | NUR ---
24 HR CHART CHECK COMPLETE
--- NOTE | 2019-04-02 09:00 | NUR ---
case management visits with patient, patient states he will be going home when medically stable, discussed with him VNA and he was receptive to this, given choice of companies, he chose [facility], case management will notify [facility] when patient is medically stable for dischartge
--- NOTE | 2019-04-02 11:04 | NUR ---
PTS BLOOD SUGAR CRITICAL HIGH 573. ADMINSTERED 32 UNITS PER ORDER. PT ASYMPTOMATIC. KEATON TAVARES NOTIFIED. WILL RECHECK.
[2019-04-02 12:00] VITALS: BP 130/74
[2019-04-02 14:00] VITALS: BP 107/91
--- NOTE | 2019-04-02 14:45 | NUR ---
Occupational Therapy referral received and screen completed. Patient reports that he is independent in all ADLs and mobility with quad cane. No further OT indicated at this time. Discharge OT order. Thank you. Judy Junior OTR/L
--- NOTE | 2019-04-02 14:50 | NUR ---
PHYSICAL THERAPY Physical Therapy screen completed this date. Patient modified independent at home and in community. Patient walking in room and states that he does not need skilled PT services. Discontinue PT orders. Thank you. Nayana Roberts,PT,DPT
--- NOTE | 2019-04-02 16:40 | NUR ---
ASSESSED FOR HOME O2 FOLLOWS: SAT 94% WITH 3L/M O2 HR 81 BP 118/61 AT REST SAT 92-94% WITH 2L/M O2 AT REST SAT 92% WITH 1L/M O2 AT REST SAT 86% RA AT REST TAKING 2L/M O2 TO BRING SAT ABOVE 88% TO 93% PT AMUBLATING WITH 2 TO 4L/M O2, SAT NEVER ABOVE 87% 6L/M O2 SAT 89-90%. PT VERY SOB, TIRED. AMBULATED HALF OF 4E HALLWAY. SAT 95% ON 3L/M O2 DURING RECOVERY. HR 81 BP 137/107 RN NOTIFIED. WILL NOTIFY IN AM.
--- NOTE | 2019-04-02 19:45 | NUR ---
PTS REPEAT BLOOD SUGAR 571. DR COELLO NOTIFIED. ORDER TO COVER PER SLIDING SCALE AND RECHECK.
[2019-04-02 20:00] VITALS: BP 115/69
--- NOTE | 2019-04-02 20:57 | NUR ---
CALLED DR. COELLO IN REGARDS TO BS OF 557. STATED HE WASN'T GOING TO DO ANYTHING ELSE WITH IT. JUST TO GIVE THE NIGHT TIME DOSE OF INSULINS AND RECHECK.
[2019-04-03] VITALS: BP 123/62
--- NOTE | 2019-04-03 04:15 | NUR ---
24 HR chart check completed.
--- NOTE | 2019-04-03 05:12 | NUR ---
NEW IV SITE STARTED ON PT. IV ROTATION WAS DUE. PT TOLERATED WELL. NEW IV IS IN LAC. NO SIGNS OF BLEEDING, SWELLING, OR REDNESS. DRESSING WAS APPLIED TO PREVIOUS SITE.
[2019-04-03 06:43] LABS: HEMATOCRIT 43.4 % (42.0-52.0); MEAN CELL VOLUME 79.2 fl (80.0-94.0); MEAN CORPUSCULAR HGB 25.5 pg (27.0-31.0); MEAN CORPUSCULAR HGB CONC 32.3 g/dl (33.0-37.0); MEAN PLATELET VOLUME 10.4 fl (9.6-12.3); PLATELET COUNT AUTOMATED 328 10*3/uL (130-400); RED BLOOD COUNT 5.48 10*6/uL (4.50-5.90); RED CELL DISTRI WIDTH 16.1 % (0-14.5); WHITE BLOOD COUNT 12.8 10*3/uL (4.8-10.8)
[2019-04-03 07:11] LABS: ALBUMIN 2.7 gm/dl (3.1-4.5); BASOPHILS 1 % (0-1); CREATININE 1.7 mg/dL (0.70-1.30); MICROCYTOSIS SLIGHT; POTASSIUM 4.1 mmol/L (3.5-5.1); TOTAL CELLS COUNTED 100 #CELLS; TOTAL PROTEIN 7.2 gm/dL (6.4-8.2)
[2019-04-03 07:12] LABS: PLATELET SUFFICIENCY NORMAL (NORMAL)
[2019-04-03 08:00] VITALS: BP 129/77
--- NOTE | 2019-04-03 09:00 | NUR ---
case management visits with patient, patient will be going home when medically stable and have [facility], will notify [facility] when patient is medically stable for discharge
--- NOTE | 2019-04-03 09:25 | NUR ---
PT REASSESSED FOR HOME O2 FOLLOWS: SAT 95% WITH 3L/M 02 AT REST SAT 87% RA AT REST HR 89 BP 129/71 SAT 95% WITH 2L/M O2 AT REST SAT 86% WITH 2L/M O2 DURING AMBULATION SAT 91% WITH 3L/M O2 DURING AMBULATION SAT 95% WITH 2L/M 02 DURING RECOVERY (REST) HR 86 BP 119/60 C/O OF SOB DURING WALK, BUT PT WALKING AND RECOVERING MUCH BETTER THAN 04/02/19. RN NOTIFIED. DR. ROBINS. WILL NOTIFY MARY TO BRING [facility] TO HOSPITAL FOR PT DISCHARGE.
--- NOTE | 2019-04-03 09:26 | NUR ---
24 HR CHART CHECK COMPLETE
[2019-04-03] MEDS ORDERED: LASIX40 MG PO (11:34)
[2019-04-03] MEDS ORDERED: PREDNISONE10 MG PO (11:35)
[2019-04-03] MEDS ORDERED: Humalog SQ (11:36)
[2019-04-03] MEDS ORDERED: LANTUS SOL100 UNIT/1 SC (11:40)
[2019-04-03] MEDS ORDERED: HUMALOG100 UNIT/1 SQ (11:43)
[2019-04-03] MEDS ORDERED: ZITHROMAX500 MG PO (11:46)
[2019-04-03 12:00] VITALS: BP 119/65
--- NOTE | 2019-04-03 13:38 | NUR ---
case management notified Radha at [facility] that patient is being discharged to home today, patient denies any other needs at this time
--- NOTE | 2019-04-03 14:15 | NUR ---
Discharge instructions reviewed with patient/family. Patient receptive and verbalizes understanding. Follow-up care arranged. Written instructions given to patient/family. INFORMED PT THAT SCRIPTS ARE SET FOR DELIVERY FROM [facility]
== END 2019-04-03 14:15 | disposition home or self-care (01) | DRG 871 ==
LOC: ED 14:52 → EDHOLD 17:25 → 4E 17:25
PROVIDERS: Emergency Medicine; Hospitalist; Registered Nurse; ADMIT Internal Medicine
PROC: 5A09357 Assistance with Respiratory Ventilation, Less than 24 Consecutive Hours, Continuous Positive Airway Pressure (ICD-10-PCS; principal; 2019-03-30)
PROC: 5A09357 Assistance with Respiratory Ventilation, Less than 24 Consecutive Hours, Continuous Positive Airway Pressure (ICD-10-PCS; 2019-04-01)
DX: A41.9 Sepsis, unspecified organism (principal); J96.21 Acute and chronic respiratory failure with hypoxia; N17.0 Acute kidney failure with tubular necrosis; I50.33 Acute on chronic diastolic (congestive) heart failure; E43 Unspecified severe protein-calorie malnutrition; E87.1 Hypo-osmolality and hyponatremia; I13.0 Hypertensive heart and chronic kidney disease with heart failure and stage 1 through stage 4 chronic kidney disease, or unspecified chronic kidney disease; J45.51 Severe persistent asthma with (acute) exacerbation; J44.1 Chronic obstructive pulmonary disease with (acute) exacerbation; Z68.42 Body mass index [BMI] 45.0-49.9, adult; E44.0 Moderate protein-calorie malnutrition; E83.39 Other disorders of phosphorus metabolism; R74.0 Nonspecific elevation of levels of transaminase and lactic acid dehydrogenase [LDH]; K21.9 Gastro-esophageal reflux disease without esophagitis; I25.10 Atherosclerotic heart disease of native coronary artery without angina pectoris; R65.20 Severe sepsis without septic shock; E66.01 Morbid (severe) obesity due to excess calories; G47.33 Obstructive sleep apnea (adult) (pediatric); E78.00 Pure hypercholesterolemia, unspecified; N18.3 Chronic kidney disease, stage 3 (moderate); D64.9 Anemia, unspecified; R29.6 Repeated falls; E11.65 Type 2 diabetes mellitus with hyperglycemia; E11.22 Type 2 diabetes mellitus with diabetic chronic kidney disease; Z99.81 Dependence on supplemental oxygen; Z82.49 Family history of ischemic heart disease and other diseases of the circulatory system; Z83.3 Family history of diabetes mellitus; Z82.3 Family history of stroke; Z79.899 Other long term (current) drug therapy; Z79.4 Long term (current) use of insulin

== ENCOUNTER 2019-06-05 21:16 | Emergency (ER) | payer OTHER, MEDICAID ==
[~2019-06-05] VITALS: Ht 170.1 cm; Wt 149.7 kg
[~2019-06-05 21:16] MED LIST changes: +HUMALOG 751 UNIT/0.0 SQ; +HUMALOG100 UNIT/1 SQ; +LANTUS SOL100 UNIT/1 SC; +VICTOZA 3-PAK6 MG/ML SQ; +ZITHROMAX500 MG PO
[2019-06-05 21:17] VITALS: BP 159/59
[2019-06-05 21:49] LABS: BILIRUBIN NEGATIVE (NEGATIVE); BLOOD TRACE-INTACT (NEGATIVE); CLARITY CLEAR (CLEAR); COLOR YELLOW (YELLOW); GLUCOSE 3+ (NEGATIVE); KETONE NEGATIVE (NEGATIVE); LEUKO ESTERASE NEGATIVE (NEGATIVE); NITRITE NEGATIVE (NEGATIVE); UROBILINOGEN 0.2 E.U./dl (0.2-1.0)
[2019-06-05 21:54] LABS: EPITHELIAL CELLS 0-2; RBC 0-2 rbc/hpf (0-2)
[2019-06-05 22:38] LABS: BASO # 0.1 10*3/uL (0.0-0.1); BASO % 0.6 % (0.0-1.0); EOS # 0.2 10*3/uL (0.0-0.4); EOS % 2.3 % (1.0-4.0); HEMATOCRIT 39.1 % (42.0-52.0); HEMOGLOBIN 13.2 g/dl (14.0-18.0); LYMPH # 2.6 10*3/uL (1.3-4.4); LYMPH % 28.8 % (27.0-41.0); MEAN CELL VOLUME 78.8 fl (80.0-94.0); MEAN CORPUSCULAR HGB 26.6 pg (27.0-31.0); MEAN CORPUSCULAR HGB CONC 33.8 g/dl (33.0-37.0); MEAN PLATELET VOLUME 11.3 fl (9.6-12.3); MONO # 0.9 10*3/uL (0.1-1.0); MONO % 9.9 % (3.0-9.0); NEUT # 5.2 10*3/uL (2.3-7.9); NEUT % 58.2 % (47.0-73.0); PLATELET COUNT AUTOMATED 285 10*3/uL (130-400); RED BLOOD COUNT 4.96 10*6/uL (4.50-5.90); RED CELL DISTRI WIDTH 17.8 % (0-14.5)
[2019-06-05 22:53] LABS: ALBUMIN 3.1 gm/dl (3.1-4.5); CREATININE 1.57 mg/dL (0.70-1.30); POTASSIUM 4.1 mmol/L (3.5-5.1); TOTAL PROTEIN 7.2 gm/dL (6.4-8.2)
== END 2019-06-05 23:56 | disposition home or self-care (01) ==
LOC: ED 21:16
PROVIDERS: Physician Assistant
DX: R81 Glycosuria (principal); E11.9 Type 2 diabetes mellitus without complications; Z79.4 Long term (current) use of insulin; Z79.2 Long term (current) use of antibiotics; Z79.899 Other long term (current) drug therapy

== ENCOUNTER → 2019-06-10 | Emergency (ER) | payer OTHER, MEDICAID ==
[~2019-06-10] VITALS: Ht 170.1 cm; Wt 149.7 kg
--- NOTE | ~2019-06-10 | EKG ---
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: SS RESP : 1950 Requested By: FREDIS ARIAS Order Number: [id number] Reading MD: Aida Munoz MD Measurements Intervals [place] Rate: 74 P: 0 [place]: 60 QRS: -32 QRSD: 95 T: 7 QT: 388 QTc: 431 Interpretive Statements Sinus rhythm Short [place] interval Left axis deviation Baseline wander in lead(s) I,aVR,V2,V4,V5 Compared to ECG 03/29/2019 20:51:04 Short [place] interval now present ST (T wave) deviation now present Myocardial infarct finding now present Electronically Signed On 06-11-2019 14:34:30 PDT by Aida Munoz MD CM:EKGRPT:ELECTROCARDIOGRAM REPORT [id number] FREDIS HUTCHINSON DRAFT REPORT FREDIS ARIAS MD
[2019-06-10 12:47] LABS: BASO # 0.1 10*3/uL (0.0-0.1); BASO % 0.7 % (0.0-1.0); EOS # 0.2 10*3/uL (0.0-0.4); EOS % 2.6 % (1.0-4.0); HEMATOCRIT 41.4 % (42.0-52.0); HEMOGLOBIN 13.4 g/dl (14.0-18.0); LYMPH % 27.2 % (27.0-41.0); MEAN CELL VOLUME 81.3 fl (80.0-94.0); MEAN CORPUSCULAR HGB 26.3 pg (27.0-31.0); MEAN CORPUSCULAR HGB CONC 32.4 g/dl (33.0-37.0); MEAN PLATELET VOLUME 10.9 fl (9.6-12.3); MONO # 0.8 10*3/uL (0.1-1.0); NEUT # 4.3 10*3/uL (2.3-7.9); NEUT % 58.2 % (47.0-73.0); PLATELET COUNT AUTOMATED 264 10*3/uL (130-400); RED BLOOD COUNT 5.09 10*6/uL (4.50-5.90); RED CELL DISTRI WIDTH 17.5 % (0-14.5); WHITE BLOOD COUNT 7.4 10*3/uL (4.8-10.8)
[2019-06-10 13:06] LABS: ALBUMIN 3.1 gm/dl (3.1-4.5); ALKALINE PHOSPHATASE 68 U/L (45-117); BUN 26 mg/dl (7-24); CHLORIDE 99 mmol/L (98-107); CREATININE 1.69 mg/dL (0.70-1.30); POTASSIUM 4.3 mmol/L (3.5-5.1); SGOT/AST 14 IU/L (3-35); SGPT/ALT 23 U/L (12-78); SODIUM 134 mmol/L (136-145); TOTAL PROTEIN 7.1 gm/dL (6.4-8.2)
[2019-06-10 13:13] LABS: TROPONIN I < 0.015 ng/ml (<0.045)
[2019-06-10 15:06] LABS: ACT PARTIAL THROMBO TIME 28.4 SECONDS (20.0-32.1); INTERNATIONAL NORM RATIO 0.9 (2.0-3.5)
[2019-06-10 17:03] VITALS: BP 145/76
== END ==
LOC: ED 11:37
PROVIDERS: Emergency Medicine; Family Medicine
DX: G45.3 Amaurosis fugax (principal); J44.9 Chronic obstructive pulmonary disease, unspecified; I13.0 Hypertensive heart and chronic kidney disease with heart failure and stage 1 through stage 4 chronic kidney disease, or unspecified chronic kidney disease; E11.22 Type 2 diabetes mellitus with diabetic chronic kidney disease; N18.3 Chronic kidney disease, stage 3 (moderate); I50.32 Chronic diastolic (congestive) heart failure; K21.9 Gastro-esophageal reflux disease without esophagitis; E66.01 Morbid (severe) obesity due to excess calories; Z79.4 Long term (current) use of insulin; Z79.899 Other long term (current) drug therapy

== ENCOUNTER → 2019-07-16 | Outpatient (CLI) | payer MEDICAID ==
[2019-07-16 12:28] LABS: BILIRUBIN NEGATIVE (NEGATIVE); BLOOD 1+ (NEGATIVE); CLARITY SL CLOUDY (CLEAR); COLOR YELLOW (YELLOW); GLUCOSE NEGATIVE (NEGATIVE); KETONE NEGATIVE (NEGATIVE); LEUKO ESTERASE NEGATIVE (NEGATIVE); NITRITE NEGATIVE (NEGATIVE)
[2019-07-16 13:02] LABS: ALBUMIN 3.3 gm/dl (3.1-4.5); ALKALINE PHOSPHATASE 71 U/L (45-117); BILIRUBIN, DIRECT < 0.1 mg/dL (0.0-0.2); BUN 22 mg/dl (7-24); CHLORIDE 102 mmol/L (98-107); CHOLESTEROL 131 mg/dL (<200); CREATININE 1.48 mg/dL (0.70-1.30); HDL CHOLESTEROL 40 mg/dl (40-60); LDL CHOLESTEROL 59 mg/dL (9-159); SGOT/AST 21 IU/L (3-35); SGPT/ALT 30 U/L (12-78); SODIUM 135 mmol/L (136-145); TOTAL PROTEIN 7.6 gm/dL (6.4-8.2); TRIGLYCERIDES 162 mg/dl (<150); VLDL CHOLESTEROL 32 mg/dL (6-40)
[2019-07-16 13:23] LABS: VITAMIN D, 25-HYDROXY 24.2 ng/mL (30-100)
== END | disposition home or self-care (01) ==
LOC: LAB 11:51
PROVIDERS: Internal Medicine
DX: E11.42 Type 2 diabetes mellitus with diabetic polyneuropathy (principal); E11.65 Type 2 diabetes mellitus with hyperglycemia; E55.9 Vitamin D deficiency, unspecified; E78.5 Hyperlipidemia, unspecified

== ENCOUNTER 2019-11-11 10:53 | Emergency (ER) | payer OTHER, MEDICAID ==
[~2019-11-11] VITALS: Wt 158.8 kg
[2019-11-11 11:01] VITALS: BP 160/80
[2019-11-11 11:28] LABS: BASO # 0.1 10*3/uL (0.0-0.1); BASO % 0.6 % (0.0-1.0); EOS # 0.2 10*3/uL (0.0-0.4); EOS % 2.3 % (1.0-4.0); HEMATOCRIT 38.7 % (42.0-52.0); HEMOGLOBIN 12.8 g/dl (14.0-18.0); LYMPH # 2.2 10*3/uL (1.3-4.4); MEAN CELL VOLUME 79.3 fl (80.0-94.0); MEAN CORPUSCULAR HGB 26.2 pg (27.0-31.0); MEAN CORPUSCULAR HGB CONC 33.1 g/dl (33.0-37.0); MEAN PLATELET VOLUME 10.7 fl (9.6-12.3); MONO # 0.9 10*3/uL (0.1-1.0); MONO % 11.2 % (3.0-9.0); NEUT # 4.5 10*3/uL (2.3-7.9); NEUT % 57.6 % (47.0-73.0); PLATELET COUNT AUTOMATED 258 10*3/uL (130-400); RED BLOOD COUNT 4.88 10*6/uL (4.50-5.90); RED CELL DISTRI WIDTH 16.5 % (0-14.5); WHITE BLOOD COUNT 7.8 10*3/uL (4.8-10.8)
[2019-11-11 11:39] LABS: ACT PARTIAL THROMBO TIME 29.1 SECONDS (20.0-32.1); INTERNATIONAL NORM RATIO 0.9 (2.0-3.5)
[2019-11-11 11:46] LABS: ALBUMIN 3.2 gm/dl (3.1-4.5); CREATININE 1.63 mg/dL (0.70-1.30); POTASSIUM 4.2 mmol/L (3.5-5.1); TOTAL PROTEIN 7.2 gm/dL (6.4-8.2); TROPONIN I 0.019 ng/ml (<0.045)
[2019-11-11] MEDS ORDERED: GOOD NEIGHBOR M25 M1 PO (14:08)
== END 2019-11-11 14:20 | disposition home or self-care (01) ==
LOC: ED 10:53
PROVIDERS: Nurse Practitioner Family
DX: R42 Dizziness and giddiness (principal); R06.02 Shortness of breath; J44.9 Chronic obstructive pulmonary disease, unspecified; I11.0 Hypertensive heart disease with heart failure; I50.9 Heart failure, unspecified; K21.9 Gastro-esophageal reflux disease without esophagitis; E11.9 Type 2 diabetes mellitus without complications; I25.10 Atherosclerotic heart disease of native coronary artery without angina pectoris; E78.5 Hyperlipidemia, unspecified; Z79.899 Other long term (current) drug therapy; Z79.2 Long term (current) use of antibiotics; Z79.4 Long term (current) use of insulin

== ENCOUNTER → 2019-12-20 | Outpatient (CLI) | payer MEDICARE ==
[~2019-12-20] MED LIST changes: +GOOD NEIGHBOR M25 M1 PO
[2019-12-20 14:22] LABS: BILIRUBIN NEGATIVE (NEGATIVE); BLOOD 1+ (NEGATIVE); CLARITY SL CLOUDY (CLEAR); COLOR YELLOW (YELLOW); GLUCOSE NEGATIVE (NEGATIVE); KETONE NEGATIVE (NEGATIVE); LEUKO ESTERASE NEGATIVE (NEGATIVE); NITRITE NEGATIVE (NEGATIVE); SPECIFIC GRAVITY 1.015 (1.005-1.030); UROBILINOGEN 0.2 E.U./dl (0.2-1.0)
[2019-12-20 14:32] LABS: BACTERIA 1+; EPITHELIAL CELLS 0-2
[2019-12-20 14:56] LABS: ALBUMIN 3.5 gm/dl (3.1-4.5); ALKALINE PHOSPHATASE 89 U/L (45-117); BILIRUBIN, DIRECT < 0.1 mg/dL (0.0-0.2); BUN 27 mg/dl (7-24); CHLORIDE 104 mmol/L (98-107); CHOLESTEROL 143 mg/dL (<200); HDL CHOLESTEROL 39 mg/dl (40-60); LDL CHOLESTEROL 59 mg/dL (9-159); POTASSIUM 4.2 mmol/L (3.5-5.1); SGOT/AST 20 IU/L (3-35); SGPT/ALT 40 U/L (12-78); SODIUM 136 mmol/L (136-145); TOTAL PROTEIN 8.1 gm/dL (6.4-8.2); TRIGLYCERIDES 226 mg/dl (<150); VLDL CHOLESTEROL 45 mg/dL (6-40)
[2019-12-20 15:03] LABS: VITAMIN D, 25-HYDROXY 27.1 ng/mL (30-100)
== END | disposition home or self-care (01) ==
LOC: LAB 13:23
PROVIDERS: Internal Medicine
DX: E11.65 Type 2 diabetes mellitus with hyperglycemia (principal); E11.42 Type 2 diabetes mellitus with diabetic polyneuropathy; E78.5 Hyperlipidemia, unspecified; E55.9 Vitamin D deficiency, unspecified

== ENCOUNTER 2020-01-10 10:10 | Emergency (ER) | payer MEDICARE ==
[~2020-01-10] VITALS: Ht 177.8 cm; Wt 136.1 kg
[2020-01-10 11:01] LABS: BASO # 0.1 10*3/uL (0.0-0.1); BASO % 0.6 % (0.0-1.0); EOS # 0.2 10*3/uL (0.0-0.4); EOS % 2.5 % (1.0-4.0); HEMATOCRIT 42.4 % (42.0-52.0); LYMPH # 2.2 10*3/uL (1.3-4.4); LYMPH % 27.9 % (27.0-41.0); MEAN CELL VOLUME 78.5 fl (80.0-94.0); MEAN CORPUSCULAR HGB 26.1 pg (27.0-31.0); MEAN CORPUSCULAR HGB CONC 33.3 g/dl (33.0-37.0); MEAN PLATELET VOLUME 10.9 fl (9.6-12.3); MONO # 0.8 10*3/uL (0.1-1.0); MONO % 10.4 % (3.0-9.0); NEUT # 4.6 10*3/uL (2.3-7.9); NEUT % 58.2 % (47.0-73.0); PLATELET COUNT AUTOMATED 282 10*3/uL (130-400); RED CELL DISTRI WIDTH 16.9 % (0-14.5); WHITE BLOOD COUNT 7.9 10*3/uL (4.8-10.8)
[2020-01-10 11:16] LABS: ALBUMIN 2.9 gm/dl (3.1-4.5); CREATININE 1.81 mg/dL (0.70-1.30); POTASSIUM 4.5 mmol/L (3.5-5.1); TOTAL PROTEIN 7.1 gm/dL (6.4-8.2)
[2020-01-10 11:35] VITALS: BP 149/70
== END 2020-01-10 11:39 | disposition home or self-care (01) ==
LOC: ED 10:10
PROVIDERS: Nurse Practitioner Family
DX: E11.40 Type 2 diabetes mellitus with diabetic neuropathy, unspecified (principal); I11.0 Hypertensive heart disease with heart failure; I50.9 Heart failure, unspecified; J44.9 Chronic obstructive pulmonary disease, unspecified; K21.9 Gastro-esophageal reflux disease without esophagitis; E78.00 Pure hypercholesterolemia, unspecified; Z79.899 Other long term (current) drug therapy; Z79.2 Long term (current) use of antibiotics; Z79.4 Long term (current) use of insulin; Z98.890 Other specified postprocedural states

== ENCOUNTER → 2020-03-20 | Outpatient (CLI) | payer MEDICARE ==
[2020-03-20 12:19] LABS: ALBUMIN 3.2 gm/dl (3.1-4.5); ALKALINE PHOSPHATASE 83 U/L (45-117); BILIRUBIN, DIRECT < 0.1 mg/dL (0.0-0.2); BUN 25 mg/dl (7-24); CHLORIDE 102 mmol/L (98-107); CHOLESTEROL 144 mg/dL (<200); CREATININE 1.79 mg/dL (0.70-1.30); HDL CHOLESTEROL 40 mg/dl (40-60); LDL CHOLESTEROL 70 mg/dL (9-159); POTASSIUM 4.2 mmol/L (3.5-5.1); SGOT/AST 18 IU/L (3-35); SGPT/ALT 29 U/L (12-78); SODIUM 136 mmol/L (136-145); TOTAL PROTEIN 7.5 gm/dL (6.4-8.2); TRIGLYCERIDES 171 mg/dl (<150); VLDL CHOLESTEROL 34 mg/dL (6-40)
[2020-03-20 12:21] LABS: COLOR YELLOW (YELLOW)
[2020-03-20 12:22] LABS: BILIRUBIN NEGATIVE (NEGATIVE); BLOOD 1+ (NEGATIVE); CLARITY CLEAR (CLEAR); GLUCOSE 2+ (NEGATIVE); KETONE NEGATIVE (NEGATIVE); LEUKO ESTERASE NEGATIVE (NEGATIVE); NITRITE NEGATIVE (NEGATIVE); UROBILINOGEN 0.2 E.U./dl (0.2-1.0)
[2020-03-20 12:48] LABS: VITAMIN D, 25-HYDROXY 37.8 ng/mL (30-100)
== END ==
LOC: LAB 11:25
PROVIDERS: Internal Medicine
DX: E11.65 Type 2 diabetes mellitus with hyperglycemia (principal); E11.42 Type 2 diabetes mellitus with diabetic polyneuropathy; E78.5 Hyperlipidemia, unspecified; E55.9 Vitamin D deficiency, unspecified; R31.9 Hematuria, unspecified

== ENCOUNTER → 2020-04-22 | Outpatient (CLI) | payer MEDICARE | END | disposition home or self-care (01) | LOC: RAD 09:48 | DX: M17.11 Unilateral primary osteoarthritis, right knee (principal); J44.9 Chronic obstructive pulmonary disease, unspecified; M25.761 Osteophyte, right knee ==

== ENCOUNTER 2020-04-25 00:23 | Emergency (ER) | payer MEDICARE ==
[~2020-04-25] VITALS: Ht 172.7 cm; Wt 154.2 kg
[2020-04-25 00:33] VITALS: BP 147/90
== END 2020-04-25 01:25 | disposition home or self-care (01) ==
LOC: ED 00:23
DX: H92.02 Otalgia, left ear (principal); Z79.899 Other long term (current) drug therapy; Z79.4 Long term (current) use of insulin

== ENCOUNTER → 2020-05-05 | Outpatient (CLI) | payer OTHER | LOC: LAB 10:13 | DX: J44.9 Chronic obstructive pulmonary disease, unspecified (principal) ==

== ENCOUNTER → 2020-05-06 | Outpatient (CLI) | payer OTHER | END | disposition home or self-care (01) | LOC: US 05-05 10:10 | DX: N28.1 Cyst of kidney, acquired (principal); M18.2 Bilateral post-traumatic osteoarthritis of first carpometacarpal joints ==

== ENCOUNTER → 2020-07-02 | Outpatient (CLI) | payer OTHER ==
[2020-07-02 13:27] LABS: BILIRUBIN Negative (Negative); BLOOD Trace-Lysed (Negative); CLARITY Clear (Clear); COLOR Yellow (Yellow); GLUCOSE 3+ (Negative); KETONE Negative (Negative); LEUKO ESTERASE Negative (Negative); NITRITE Negative (Negative); UROBILINOGEN 0.2 E.U./dl (0.0-1.0)
[2020-07-02 13:34] LABS: BACTERIA TRACE; EPITHELIAL CELLS 0-2; RBC 0-2 rbc/hpf (0-2); WBC 0-2 wbc/hpf (0-5)
[2020-07-02 13:43] LABS: ALBUMIN 3.1 gm/dl (3.1-4.5); ALKALINE PHOSPHATASE 83 U/L (45-117); BILIRUBIN, DIRECT < 0.1 mg/dL (0.0-0.2); BUN 27 mg/dl (7-24); CHLORIDE 98 mmol/L (98-107); CHOLESTEROL 153 mg/dL (<200); HDL CHOLESTEROL 53 mg/dl (40-60); LDL CHOLESTEROL 53 mg/dL (9-159); POTASSIUM 4.6 mmol/L (3.5-5.1); SGOT/AST 20 IU/L (3-35); SGPT/ALT 33 U/L (12-78); SODIUM 134 mmol/L (136-145); TOTAL PROTEIN 7.6 gm/dL (6.4-8.2); TRIGLYCERIDES 237 mg/dl (<150); VLDL CHOLESTEROL 47 mg/dL (6-40)
[2020-07-02 14:18] LABS: VITAMIN D, 25-HYDROXY 24.7 ng/mL (30-100)
== END | disposition home or self-care (01) ==
LOC: LAB 13:03
PROVIDERS: ATTEND Internal Medicine
DX: E11.65 Type 2 diabetes mellitus with hyperglycemia (principal); E11.42 Type 2 diabetes mellitus with diabetic polyneuropathy; E78.5 Hyperlipidemia, unspecified; E55.9 Vitamin D deficiency, unspecified

== ENCOUNTER → 2020-10-07 | Outpatient (CLI) | payer OTHER ==
[~2020-10-07] MED LIST changes: +ATENOLOL25 MG PO; +AUGMENTIN 875875 MG PO; +CARVEDILOL3.125 MG PO; +ENALAPRIL20 MG PO; +NORVASC10 MG PO; +OZEMPIC1 MG/0.75 SQ
[2020-10-07 12:42] LABS: BILIRUBIN Negative (Negative); BLOOD Trace-Lysed (Negative); CLARITY Clear (Clear); COLOR Yellow (Yellow); GLUCOSE Negative (Negative); KETONE Negative (Negative); LEUKO ESTERASE Negative (Negative); NITRITE Negative (Negative); PH 6.5 (4.5-8.0); SPECIFIC GRAVITY 1.015 (1.001-1.030)
[2020-10-07 13:03] LABS: ALBUMIN 2.9 gm/dl (3.1-4.5); ALKALINE PHOSPHATASE 85 U/L (45-117); BILIRUBIN, DIRECT < 0.1 mg/dL (0.0-0.2); BUN 26 mg/dl (7-24); CHLORIDE 103 mmol/L (98-107); CHOLESTEROL 157 mg/dL (<200); HDL CHOLESTEROL 61 mg/dl (40-60); LDL CHOLESTEROL 63 mg/dL (9-159); POTASSIUM 4.1 mmol/L (3.5-5.1); SGOT/AST 19 IU/L (3-35); SGPT/ALT 28 U/L (12-78); SODIUM 139 mmol/L (136-145); TOTAL PROTEIN 7.5 gm/dL (6.4-8.2); TRIGLYCERIDES 167 mg/dl (<150); VLDL CHOLESTEROL 33 mg/dL (6-40)
[2020-10-07 13:10] LABS: MUCOUS TRACE
[2020-10-07 13:50] LABS: VITAMIN D, 25-HYDROXY 24.6 ng/mL (30-100)
== END | disposition home or self-care (01) ==
LOC: LAB 12:00
PROVIDERS: ATTEND Internal Medicine
DX: E11.42 Type 2 diabetes mellitus with diabetic polyneuropathy (principal); E11.65 Type 2 diabetes mellitus with hyperglycemia; E78.5 Hyperlipidemia, unspecified; E55.9 Vitamin D deficiency, unspecified; R31.9 Hematuria, unspecified

== ENCOUNTER 2020-11-13 08:04 | Inpatient (IN) | payer OTHER ==
[2020-11-13] VITALS (25 sets, daily range): BP systolic 110–167; BP diastolic 51–83
[~2020-11-13] VITALS: Ht 170.2 cm; Wt 143.8 kg
[~2020-11-13 08:04] MED LIST changes: -ATENOLOL25 MG PO; -AUGMENTIN 875875 MG PO; -CARVEDILOL3.125 MG PO; -ENALAPRIL20 MG PO; -NORVASC10 MG PO; -OZEMPIC1 MG/0.75 SQ
[2020-11-13 08:31] LABS: BASO % 0.5 % (0.0-1.0); EOS # 0.3 10*3/uL (0.0-0.4); EOS % 3.1 % (1.0-4.0); HEMATOCRIT 36.5 % (42.0-52.0); LYMPH # 1.4 10*3/uL (1.3-4.4); LYMPH % 16.6 % (27.0-41.0); MEAN CORPUSCULAR HGB 25.8 pg (27.0-31.0); MEAN CORPUSCULAR HGB CONC 31.5 g/dl (33.0-37.0); MEAN PLATELET VOLUME 9.9 fl (9.6-12.3); MONO # 1.2 10*3/uL (0.1-1.0); MONO % 14.2 % (3.0-9.0); NEUT # 5.6 10*3/uL (2.3-7.9); NEUT % 65.4 % (47.0-73.0); PLATELET COUNT AUTOMATED 277 10*3/uL (130-400); RED BLOOD COUNT 4.45 10*6/uL (4.50-5.90); RED CELL DISTRI WIDTH 16.6 % (0-14.5); WHITE BLOOD COUNT 8.6 10*3/uL (4.8-10.8)
[2020-11-13 08:34] LABS: ARTERIAL BLOOD GAS PH 7.254 (7.35-7.45); ARTERIAL BLOOD GAS PO2 131.1 (80-90)
[2020-11-13 08:46] LABS: ACT PARTIAL THROMBO TIME 31.6 SECONDS (20.0-32.1)
[2020-11-13 08:50] LABS: ALBUMIN 2.9 gm/dl (3.1-4.5); ALKALINE PHOSPHATASE 71 U/L (45-117); BUN 27 mg/dl (7-24); CHLORIDE 107 mmol/L (98-107); POTASSIUM 4.2 mmol/L (3.5-5.1); SGOT/AST 54 IU/L (3-35); SGPT/ALT 44 U/L (12-78); SODIUM 142 mmol/L (136-145); TOTAL PROTEIN 7.7 gm/dL (6.4-8.2)
[2020-11-13 08:53] LABS: TROPONIN I < 0.015 ng/ml (<0.045)
[2020-11-13 13:45] LABS: BILIRUBIN Negative (Negative); BLOOD 1+ (Negative); CLARITY Clear (Clear); COLOR Yellow (Yellow); GLUCOSE Negative (Negative); KETONE Negative (Negative); LEUKO ESTERASE Negative (Negative); NITRITE Negative (Negative); UROBILINOGEN 0.2 E.U./dl (0.0-1.0)
[2020-11-13 14:05] LABS: RBC 21-30 rbc/hpf (0-2); WBC 0-2 wbc/hpf (0-5)
[2020-11-13 15:09] LABS: ABG BASE EXCESS 3.9 mmol/L (-2.0-2.0); ARTERIAL BLOOD GAS PH 7.318 (7.35-7.45); ARTERIAL BLOOD GAS PO2 57.7 (80-90)
[2020-11-14] VITALS (15 sets, daily range): BP systolic 127–167; BP diastolic 56–81
[2020-11-14 06:28] LABS: BASO % 0.3 % (0.0-1.0); EOS % 0.2 % (1.0-4.0); HEMATOCRIT 35.2 % (42.0-52.0); LYMPH # 0.9 10*3/uL (1.3-4.4); LYMPH % 8.6 % (27.0-41.0); MEAN CELL VOLUME 82.8 fl (80.0-94.0); MEAN CORPUSCULAR HGB 25.9 pg (27.0-31.0); MEAN CORPUSCULAR HGB CONC 31.3 g/dl (33.0-37.0); MONO # 0.9 10*3/uL (0.1-1.0); MONO % 9.3 % (3.0-9.0); NEUT # 8.1 10*3/uL (2.3-7.9); NEUT % 81.4 % (47.0-73.0); PLATELET COUNT AUTOMATED 259 10*3/uL (130-400); RED BLOOD COUNT 4.25 10*6/uL (4.50-5.90); RED CELL DISTRI WIDTH 16.9 % (0-14.5); WHITE BLOOD COUNT 9.9 10*3/uL (4.8-10.8)
[2020-11-14 06:53] LABS: ALBUMIN 2.5 gm/dl (3.1-4.5)
[2020-11-14 06:56] LABS: CREATININE 2.05 mg/dL (0.70-1.30); TOTAL PROTEIN 6.9 gm/dL (6.4-8.2)
[2020-11-14 09:32] LABS: ABG BASE EXCESS 4.8 mmol/L (-2.0-2.0); ARTERIAL BLOOD GAS PH 7.388 (7.35-7.45); ARTERIAL BLOOD GAS PO2 61.2 (80-90)
[2020-11-14] MEDS ORDERED: ATENOLOL25 MG PO (12:26)
[2020-11-14] MEDS ORDERED: NORVASC10 MG PO (12:26)
[2020-11-14] MEDS ORDERED: ENALAPRIL20 MG PO (12:28)
[2020-11-14 12:40] LABS: ARTERIAL BLOOD GAS PH 7.391 (7.35-7.45); ARTERIAL BLOOD GAS PO2 76.6 (80-90)
[2020-11-14] MEDS ORDERED: OZEMPIC1 MG/0.75 SQ (13:19)
[2020-11-14 14:35] LABS: BILIRUBIN Negative (Negative); BLOOD 3+ (Negative); CLARITY Cloudy (Clear); COLOR Yellow (Yellow); GLUCOSE Negative (Negative); KETONE Negative (Negative); LEUKO ESTERASE Trace (Negative); NITRITE Negative (Negative); UROBILINOGEN 0.2 E.U./dl (0.0-1.0)
[2020-11-14 14:50] LABS: BACTERIA 2+; RBC 16-20 rbc/hpf (0-2)
[2020-11-14 16:00] LABS: BASO % 0.3 % (0.0-1.0); EOS # 0.1 10*3/uL (0.0-0.4); EOS % 1.2 % (1.0-4.0); HEMATOCRIT 35.8 % (42.0-52.0); LYMPH # 0.7 10*3/uL (1.3-4.4); LYMPH % 8.3 % (27.0-41.0); MEAN CORPUSCULAR HGB 26.2 pg (27.0-31.0); MEAN CORPUSCULAR HGB CONC 32.4 g/dl (33.0-37.0); MEAN PLATELET VOLUME 10.4 fl (9.6-12.3); MONO # 1.2 10*3/uL (0.1-1.0); MONO % 13.8 % (3.0-9.0); NEUT # 6.8 10*3/uL (2.3-7.9); NEUT % 76.2 % (47.0-73.0); PLATELET COUNT AUTOMATED 256 10*3/uL (130-400); RED BLOOD COUNT 4.42 10*6/uL (4.50-5.90); RED CELL DISTRI WIDTH 16.9 % (0-14.5)
[2020-11-14 16:16] LABS: ALBUMIN 2.5 gm/dl (3.1-4.5); CREATININE 1.92 mg/dL (0.70-1.30)
[2020-11-15] VITALS (12 sets, daily range): BP systolic 126–147; BP diastolic 57–81
[2020-11-15 06:20] LABS: BASO % 0.3 % (0.0-1.0); EOS # 0.2 10*3/uL (0.0-0.4); EOS % 1.6 % (1.0-4.0); HEMATOCRIT 35.6 % (42.0-52.0); LYMPH # 0.7 10*3/uL (1.3-4.4); MEAN CELL VOLUME 79.6 fl (80.0-94.0); MEAN CORPUSCULAR HGB 25.7 pg (27.0-31.0); MEAN CORPUSCULAR HGB CONC 32.3 g/dl (33.0-37.0); MEAN PLATELET VOLUME 11.2 fl (9.6-12.3); MONO # 1.4 10*3/uL (0.1-1.0); MONO % 13.6 % (3.0-9.0); NEUT # 7.9 10*3/uL (2.3-7.9); NEUT % 77.2 % (47.0-73.0); PLATELET COUNT AUTOMATED 280 10*3/uL (130-400); RED BLOOD COUNT 4.47 10*6/uL (4.50-5.90); RED CELL DISTRI WIDTH 16.6 % (0-14.5); WHITE BLOOD COUNT 10.2 10*3/uL (4.8-10.8)
[2020-11-15 06:31] LABS: ALBUMIN 2.2 gm/dl (3.1-4.5); CREATININE 1.71 mg/dL (0.70-1.30); POTASSIUM 4.5 mmol/L (3.5-5.1); TOTAL PROTEIN 6.7 gm/dL (6.4-8.2)
[2020-11-15 08:11] LABS: ABG BASE EXCESS 5.4 mmol/L (-2.0-2.0); ARTERIAL BLOOD GAS PH 7.443 (7.35-7.45); ARTERIAL BLOOD GAS PO2 76.8 (80-90)
[2020-11-15 13:11] LABS: ARTERIAL BLOOD GAS PH 7.447 (7.35-7.45); ARTERIAL BLOOD GAS PO2 68.8 (80-90)
[2020-11-16] VITALS (12 sets, daily range): BP systolic 114–135; BP diastolic 55–98
[2020-11-16 05:56] LABS: CREATININE 2.31 mg/dL (0.70-1.30); POTASSIUM 4.6 mmol/L (3.5-5.1)
[2020-11-16 06:00] LABS: HEMATOCRIT 34.4 % (42.0-52.0); MEAN CELL VOLUME 80.4 fl (80.0-94.0); MEAN CORPUSCULAR HGB 26.4 pg (27.0-31.0); MEAN CORPUSCULAR HGB CONC 32.8 g/dl (33.0-37.0); MEAN PLATELET VOLUME 11.6 fl (9.6-12.3); PLATELET COUNT AUTOMATED 285 10*3/uL (130-400); RED BLOOD COUNT 4.28 10*6/uL (4.50-5.90); RED CELL DISTRI WIDTH 16.9 % (0-14.5); WHITE BLOOD COUNT 10.5 10*3/uL (4.8-10.8)
[2020-11-16 06:57] LABS: BASOPHILS 1 % (0-1); PLATELET SUFFICIENCY NORMAL (NORMAL); TOTAL CELLS COUNTED 100 #CELLS
[2020-11-16 08:00] LABS: ABG BASE EXCESS 7.4 mmol/L (-2.0-2.0); ARTERIAL BLOOD GAS PH 7.44 (7.35-7.45); ARTERIAL BLOOD GAS PO2 76.9 (80-90)
[2020-11-16 10:52] LABS: ABG BASE EXCESS 5.9 mmol/L (-2.0-2.0); ARTERIAL BLOOD GAS PH 7.45 (7.35-7.45); ARTERIAL BLOOD GAS PO2 87.1 (80-90)
[2020-11-16 14:08] LABS: ABG BASE EXCESS 5.3 mmol/L (-2.0-2.0); ARTERIAL BLOOD GAS PH 7.423 (7.35-7.45); ARTERIAL BLOOD GAS PO2 75.3 (80-90)
[2020-11-17] VITALS (9 sets, daily range): BP systolic 115–160; BP diastolic 62–86
[2020-11-17 06:31] LABS: HEMATOCRIT 34.2 % (42.0-52.0); MEAN CELL VOLUME 80.1 fl (80.0-94.0); MEAN CORPUSCULAR HGB 26.2 pg (27.0-31.0); MEAN CORPUSCULAR HGB CONC 32.7 g/dl (33.0-37.0); MEAN PLATELET VOLUME 11.3 fl (9.6-12.3); PLATELET COUNT AUTOMATED 291 10*3/uL (130-400); RED BLOOD COUNT 4.27 10*6/uL (4.50-5.90); WHITE BLOOD COUNT 10.3 10*3/uL (4.8-10.8)
[2020-11-17 06:45] LABS: ALBUMIN 1.9 gm/dl (3.1-4.5); CREATININE 2.41 mg/dL (0.70-1.30)
[2020-11-17 07:27] LABS: PLATELET SUFFICIENCY NORMAL (NORMAL); POLYCHROMASIA SLIGHT; ROULEAUX MODERATE; TOTAL CELLS COUNTED 100 #CELLS
[2020-11-17 07:28] LABS: POTASSIUM 4.7 mmol/L (3.5-5.1)
[2020-11-17 07:36] LABS: ABG BASE EXCESS 4.7 mmol/L (-2.0-2.0); ARTERIAL BLOOD GAS PH 7.424 (7.35-7.45); ARTERIAL BLOOD GAS PO2 85.3 (80-90)
[2020-11-17 13:01] LABS: ABG BASE EXCESS 4.2 mmol/L (-2.0-2.0); ARTERIAL BLOOD GAS PH 7.423 (7.35-7.45); ARTERIAL BLOOD GAS PO2 84.5 (80-90)
[2020-11-18] VITALS: BP 160/94
[2020-11-18 04:00] VITALS: BP 139/72
[2020-11-18 06:14] LABS: MEAN CELL VOLUME 81.1 fl (80.0-94.0); MEAN CORPUSCULAR HGB 25.9 pg (27.0-31.0); MEAN CORPUSCULAR HGB CONC 31.9 g/dl (33.0-37.0); MEAN PLATELET VOLUME 11.2 fl (9.6-12.3); PLATELET COUNT AUTOMATED 295 10*3/uL (130-400); RED BLOOD COUNT 4.44 10*6/uL (4.50-5.90); RED CELL DISTRI WIDTH 16.8 % (0-14.5); WHITE BLOOD COUNT 11.1 10*3/uL (4.8-10.8)
[2020-11-18 06:36] LABS: ALBUMIN 1.9 gm/dl (3.1-4.5); CREATININE 2.64 mg/dL (0.70-1.30); POTASSIUM 4.4 mmol/L (3.5-5.1)
[2020-11-18 06:40] LABS: TOTAL PROTEIN 7.4 gm/dL (6.4-8.2)
[2020-11-18 06:42] LABS: BASOPHILS 1 % (0-1); PLATELET SUFFICIENCY NORMAL (NORMAL); POLYCHROMASIA SLIGHT; ROULEAUX MODERATE; TOTAL CELLS COUNTED 100 #CELLS
[2020-11-18 08:00] VITALS: BP 153/68
[2020-11-18 08:09] LABS: ABG BASE EXCESS 6.4 mmol/L (-2.0-2.0); ARTERIAL BLOOD GAS PH 7.495 (7.35-7.45); ARTERIAL BLOOD GAS PO2 80.9 (80-90)
[2020-11-18 10:04] LABS: BILIRUBIN Negative (Negative); BLOOD 3+ (Negative); CLARITY Turbid (Clear); COLOR Dark Yellow (Yellow); GLUCOSE Negative (Negative); KETONE Negative (Negative); LEUKO ESTERASE 1+ (Negative); NITRITE Negative (Negative); PH 5.5 (4.5-8.0)
[2020-11-18 10:16] LABS: RBC TNTC rbc/hpf (0-2); WBC TNTC wbc/hpf (0-5)
[2020-11-18 12:54] LABS: ABG BASE EXCESS 5.3 mmol/L (-2.0-2.0); ARTERIAL BLOOD GAS PH 7.432 (7.35-7.45); ARTERIAL BLOOD GAS PO2 103.4 (80-90)
[2020-11-18 16:00] VITALS: BP 150/62
[2020-11-18 20:00] VITALS: BP 152/76
[2020-11-19] VITALS: BP 150/73
[2020-11-19 04:00] VITALS: BP 147/63
[2020-11-19 06:07] LABS: HEP B CORE AB, IGM Negative (Negative); HEPATITIS B SURFACE AG Negative (Negative); HEPATITIS C VIRUS ANTIBODY <0.1 s/co (0.0-0.9)
[2020-11-19 06:19] LABS: HEMATOCRIT 33.3 % (42.0-52.0); MEAN CELL VOLUME 79.9 fl (80.0-94.0); MEAN CORPUSCULAR HGB 25.2 pg (27.0-31.0); MEAN CORPUSCULAR HGB CONC 31.5 g/dl (33.0-37.0); MEAN PLATELET VOLUME 10.7 fl (9.6-12.3); PLATELET COUNT AUTOMATED 262 10*3/uL (130-400); RED BLOOD COUNT 4.17 10*6/uL (4.50-5.90); RED CELL DISTRI WIDTH 16.8 % (0-14.5); WHITE BLOOD COUNT 11.3 10*3/uL (4.8-10.8)
[2020-11-19 06:22] LABS: CREATININE 3.23 mg/dL (0.70-1.30); POTASSIUM 4.1 mmol/L (3.5-5.1); TOTAL PROTEIN 7.3 gm/dL (6.4-8.2)
[2020-11-19 07:30] LABS: MICROCYTOSIS SLIGHT; POLYCHROMASIA SLIGHT; SCHISTOCYTES FEW; TARGET CELLS FEW; TOTAL CELLS COUNTED 100 #CELLS
[2020-11-19 07:31] LABS: OVALOCYTES FEW; PLATELET SUFFICIENCY NORMAL (NORMAL); ROULEAUX SLIGHT
[2020-11-19 08:00] VITALS: BP 138/53
[2020-11-19 08:34] LABS: ABG BASE EXCESS 5.7 mmol/L (-2.0-2.0); ARTERIAL BLOOD GAS PH 7.445 (7.35-7.45); ARTERIAL BLOOD GAS PO2 81.7 (80-90)
[2020-11-19 09:53] LABS: ALBUMIN 1.9 gm/dl (3.1-4.5)
[2020-11-19 12:00] VITALS: BP 138/71
[2020-11-19 13:01] LABS: ABG BASE EXCESS 5.7 mmol/L (-2.0-2.0); ARTERIAL BLOOD GAS PH 7.426 (7.35-7.45)
[2020-11-19 13:06] LABS: ACID FAST SPEC PROCESSING Concentration (.)
[2020-11-19 15:42] LABS: ABG BASE EXCESS 4.8 mmol/L (-2.0-2.0); ARTERIAL BLOOD GAS PH 7.417 (7.35-7.45); ARTERIAL BLOOD GAS PO2 90.1 (80-90)
[2020-11-19 16:00] VITALS: BP 123/51
[2020-11-19 20:00] VITALS: BP 140/59
[2020-11-20] VITALS: BP 142/73
[2020-11-20 04:00] VITALS: BP 137/56
[2020-11-20 06:05] LABS: ALBUMIN 1.7 gm/dl (3.1-4.5); CREATININE 3.18 mg/dL (0.70-1.30); POTASSIUM 4.1 mmol/L (3.5-5.1); TOTAL PROTEIN 7.1 gm/dL (6.4-8.2)
[2020-11-20 06:18] LABS: HEMATOCRIT 33.2 % (42.0-52.0); MEAN CELL VOLUME 81.4 fl (80.0-94.0); MEAN CORPUSCULAR HGB 25.7 pg (27.0-31.0); MEAN CORPUSCULAR HGB CONC 31.6 g/dl (33.0-37.0); MEAN PLATELET VOLUME 11.5 fl (9.6-12.3); PLATELET COUNT AUTOMATED 287 10*3/uL (130-400); RED BLOOD COUNT 4.08 10*6/uL (4.50-5.90); RED CELL DISTRI WIDTH 17.1 % (0-14.5); WHITE BLOOD COUNT 12.5 10*3/uL (4.8-10.8)
[2020-11-20 06:41] LABS: POLYCHROMASIA SLIGHT; TOTAL CELLS COUNTED 100 #CELLS
[2020-11-20 06:42] LABS: PLATELET SUFFICIENCY NORMAL (NORMAL); ROULEAUX MODERATE
[2020-11-20 08:00] VITALS: BP 141/75
[2020-11-20 08:09] LABS: ABG BASE EXCESS 3.6 mmol/L (-2.0-2.0); ARTERIAL BLOOD GAS PH 7.402 (7.35-7.45); ARTERIAL BLOOD GAS PO2 69.2 (80-90)
[2020-11-20 12:00] VITALS: BP 162/70
[2020-11-20 12:42] LABS: ARTERIAL BLOOD GAS PH 7.438 (7.35-7.45); ARTERIAL BLOOD GAS PO2 78.5 (80-90)
[2020-11-20 16:00] VITALS: BP 112/55
[2020-11-20 19:23] LABS: IMMUNOGLOBULIN G, QNT 1088 mg/dL (603-1613); IMMUNOGLOBULIN M, QNT 50 mg/dL (20-172); TOTAL PROTEIN, SERUM 5.9 g/dL (6.0-8.5)
[2020-11-20 19:24] LABS: A/G RATIO 0.6 (0.7-1.7); ALBUMIN 2.2 g/dL (2.9-4.4); ALPHA-1-GLOBULIN 0.5 g/dL (0.0-0.4); ALPHA-2-GLOBULIN 1.2 g/dL (0.4-1.0); GLOBULIN, TOTAL 3.7 g/dL (2.2-3.9); M-SPIKE Comment: g/dL (Not Observed)
[2020-11-20 20:00] VITALS: BP 116/66
[2020-11-21] VITALS: BP 122/53
[2020-11-21 04:00] VITALS: BP 124/73
[2020-11-21 05:58] LABS: ALBUMIN 1.6 gm/dl (3.1-4.5); CREATININE 2.97 mg/dL (0.70-1.30); HEMATOCRIT 32.8 % (42.0-52.0); MEAN CORPUSCULAR HGB 25.7 pg (27.0-31.0); MEAN CORPUSCULAR HGB CONC 31.7 g/dl (33.0-37.0); MEAN PLATELET VOLUME 11.4 fl (9.6-12.3); PLATELET COUNT AUTOMATED 299 10*3/uL (130-400); RED BLOOD COUNT 4.05 10*6/uL (4.50-5.90); RED CELL DISTRI WIDTH 16.9 % (0-14.5); WHITE BLOOD COUNT 12.9 10*3/uL (4.8-10.8)
[2020-11-21 07:42] LABS: PLATELET SUFFICIENCY NORMAL (NORMAL); TOTAL CELLS COUNTED 100 #CELLS
[2020-11-21 08:00] VITALS: BP 133/63
[2020-11-21 08:24] LABS: ABG BASE EXCESS 3.6 mmol/L (-2.0-2.0); ARTERIAL BLOOD GAS PH 7.428 (7.35-7.45); ARTERIAL BLOOD GAS PO2 68.8 (80-90)
[2020-11-21 12:00] VITALS: BP 133/73
[2020-11-21 12:53] LABS: ABG BASE EXCESS 3.7 mmol/L (-2.0-2.0); ARTERIAL BLOOD GAS PH 7.413 (7.35-7.45); ARTERIAL BLOOD GAS PO2 78.3 (80-90)
[2020-11-21 15:53] LABS: ABG BASE EXCESS 4.2 mmol/L (-2.0-2.0); ARTERIAL BLOOD GAS PH 7.394 (7.35-7.45); ARTERIAL BLOOD GAS PO2 90.7 (80-90)
[2020-11-21 16:00] VITALS: BP 123/78
[2020-11-21 20:00] VITALS: BP 150/83
[2020-11-22] VITALS: BP 137/72
[2020-11-22 04:00] VITALS: BP 148/78
[2020-11-22 06:17] LABS: HEMATOCRIT 33.8 % (42.0-52.0); MEAN CELL VOLUME 82.8 fl (80.0-94.0); MEAN CORPUSCULAR HGB 25.2 pg (27.0-31.0); MEAN CORPUSCULAR HGB CONC 30.5 g/dl (33.0-37.0); MEAN PLATELET VOLUME 11.5 fl (9.6-12.3); PLATELET COUNT AUTOMATED 338 10*3/uL (130-400); RED BLOOD COUNT 4.08 10*6/uL (4.50-5.90); RED CELL DISTRI WIDTH 17.1 % (0-14.5); WHITE BLOOD COUNT 12.5 10*3/uL (4.8-10.8)
[2020-11-22 06:25] LABS: ALBUMIN 1.8 gm/dl (3.1-4.5)
[2020-11-22 06:28] LABS: CREATININE 2.57 mg/dL (0.70-1.30); TOTAL PROTEIN 7.2 gm/dL (6.4-8.2)
[2020-11-22 06:57] LABS: BASOPHILS 1 % (0-1); TOTAL CELLS COUNTED 100 #CELLS
[2020-11-22 06:58] LABS: PLATELET SUFFICIENCY NORMAL (NORMAL); ROULEAUX SLIGHT
[2020-11-22 06:59] LABS: POLYCHROMASIA SLIGHT; TARGET CELLS FEW
[2020-11-22 08:00] VITALS: BP 160/81
[2020-11-22 08:31] LABS: ABG BASE EXCESS 4.7 mmol/L (-2.0-2.0); ARTERIAL BLOOD GAS PH 7.388 (7.35-7.45)
[2020-11-22 12:00] VITALS: BP 149/74
[2020-11-22 15:06] LABS: ABG BASE EXCESS 3.9 mmol/L (-2.0-2.0); ARTERIAL BLOOD GAS PH 7.38 (7.35-7.45); ARTERIAL BLOOD GAS PO2 72.5 (80-90)
[2020-11-22 16:00] VITALS: BP 139/72
[2020-11-22 20:00] VITALS: BP 135/70
[2020-11-23] VITALS: BP 133/63
[2020-11-23 04:00] VITALS: BP 159/71
[2020-11-23 06:05] LABS: CREATININE 2.43 mg/dL (0.70-1.30); TOTAL PROTEIN 7.4 gm/dL (6.4-8.2)
[2020-11-23 06:24] LABS: ALBUMIN 1.7 gm/dl (3.1-4.5)
[2020-11-23 06:26] LABS: BASO % 0.4 % (0.0-1.0); EOS # 0.4 10*3/uL (0.0-0.4); EOS % 4.2 % (1.0-4.0); HEMATOCRIT 33.8 % (42.0-52.0); LYMPH # 1.7 10*3/uL (1.3-4.4); LYMPH % 16.8 % (27.0-41.0); MEAN CELL VOLUME 82.6 fl (80.0-94.0); MEAN CORPUSCULAR HGB 25.9 pg (27.0-31.0); MEAN CORPUSCULAR HGB CONC 31.4 g/dl (33.0-37.0); MEAN PLATELET VOLUME 10.5 fl (9.6-12.3); MONO # 1.4 10*3/uL (0.1-1.0); MONO % 13.9 % (3.0-9.0); NEUT # 6.6 10*3/uL (2.3-7.9); NEUT % 64.2 % (47.0-73.0); PLATELET COUNT AUTOMATED 368 10*3/uL (130-400); RED BLOOD COUNT 4.09 10*6/uL (4.50-5.90); WHITE BLOOD COUNT 10.3 10*3/uL (4.8-10.8)
[2020-11-23 08:00] VITALS: BP 139/73
[2020-11-23 08:20] LABS: ABG BASE EXCESS 4.4 mmol/L (-2.0-2.0); ARTERIAL BLOOD GAS PH 7.391 (7.35-7.45); ARTERIAL BLOOD GAS PO2 64.1 (80-90)
[2020-11-23 12:00] VITALS: BP 144/73
[2020-11-23 16:00] VITALS: BP 144/72
[2020-11-23 16:49] LABS: CREATININE 2.38 mg/dL (0.70-1.30); POTASSIUM 4.2 mmol/L (3.5-5.1)
[2020-11-23 20:00] VITALS: BP 152/72
[2020-11-24] VITALS: BP 138/78
[2020-11-24 04:00] VITALS: BP 125/64
[2020-11-24 06:15] LABS: BASO % 0.4 % (0.0-1.0); EOS # 0.4 10*3/uL (0.0-0.4); EOS % 3.6 % (1.0-4.0); LYMPH # 1.8 10*3/uL (1.3-4.4); LYMPH % 16.1 % (27.0-41.0); MEAN CELL VOLUME 84.6 fl (80.0-94.0); MEAN CORPUSCULAR HGB 25.1 pg (27.0-31.0); MEAN CORPUSCULAR HGB CONC 29.7 g/dl (33.0-37.0); MEAN PLATELET VOLUME 11.1 fl (9.6-12.3); MONO # 1.4 10*3/uL (0.1-1.0); MONO % 12.4 % (3.0-9.0); NEUT # 7.7 10*3/uL (2.3-7.9); NEUT % 67.1 % (47.0-73.0); PLATELET COUNT AUTOMATED 376 10*3/uL (130-400); RED BLOOD COUNT 4.02 10*6/uL (4.50-5.90); RED CELL DISTRI WIDTH 16.9 % (0-14.5); WHITE BLOOD COUNT 11.4 10*3/uL (4.8-10.8)
[2020-11-24 06:30] LABS: ALBUMIN 1.8 gm/dl (3.1-4.5); CREATININE 2.11 mg/dL (0.70-1.30); POTASSIUM 3.9 mmol/L (3.5-5.1)
[2020-11-24 06:31] LABS: TOTAL PROTEIN 6.8 gm/dL (6.4-8.2)
[2020-11-24 07:59] LABS: ABG BASE EXCESS 3.9 mmol/L (-2.0-2.0); ARTERIAL BLOOD GAS PH 7.385 (7.35-7.45); ARTERIAL BLOOD GAS PO2 69.7 (80-90)
[2020-11-24 08:00] VITALS: BP 158/68
[2020-11-24 12:00] VITALS: BP 144/81
[2020-11-24 15:06] LABS: FREE KAPPA LIGHT CHAINS 105.8 mg/L (3.3-19.4); FREE LAMBDA LIGHT CHAINS 58.7 mg/L (5.7-26.3)
[2020-11-24 16:00] VITALS: BP 155/77
[2020-11-24 16:08] LABS: A/G RATIO 0.5 (0.7-1.7); ALBUMIN 2.1 g/dL (2.9-4.4); ALPHA-1-GLOBULIN 0.6 g/dL (0.0-0.4); ALPHA-2-GLOBULIN 1.4 g/dL (0.4-1.0); BETA GLOBULIN 1.2 g/dL (0.7-1.3); GLOBULIN, TOTAL 4.1 g/dL (2.2-3.9); M-SPIKE Not Observed g/dL (Not Observed); TOTAL PROTEIN, SERUM 6.2 g/dL (6.0-8.5)
[2020-11-24 20:00] VITALS: BP 157/88
[2020-11-25] VITALS: BP 113/50
[2020-11-25 04:00] VITALS: BP 134/74
[2020-11-25 06:09] LABS: ALBUMIN 1.8 gm/dl (3.1-4.5); POTASSIUM 3.9 mmol/L (3.5-5.1); TOTAL PROTEIN 7.1 gm/dL (6.4-8.2)
[2020-11-25 06:26] LABS: BASO % 0.4 % (0.0-1.0); EOS # 0.4 10*3/uL (0.0-0.4); EOS % 3.9 % (1.0-4.0); HEMATOCRIT 35.4 % (42.0-52.0); LYMPH # 2.1 10*3/uL (1.3-4.4); LYMPH % 19.8 % (27.0-41.0); MEAN CELL VOLUME 84.1 fl (80.0-94.0); MEAN CORPUSCULAR HGB 25.4 pg (27.0-31.0); MEAN CORPUSCULAR HGB CONC 30.2 g/dl (33.0-37.0); MEAN PLATELET VOLUME 10.8 fl (9.6-12.3); MONO # 1.3 10*3/uL (0.1-1.0); MONO % 12.4 % (3.0-9.0); NEUT # 6.6 10*3/uL (2.3-7.9); PLATELET COUNT AUTOMATED 422 10*3/uL (130-400); RED BLOOD COUNT 4.21 10*6/uL (4.50-5.90); WHITE BLOOD COUNT 10.5 10*3/uL (4.8-10.8)
[2020-11-25 07:25] LABS: ARTERIAL BLOOD GAS PH 7.295 (7.35-7.45); ARTERIAL BLOOD GAS PO2 71.4 (80-90)
[2020-11-25 08:00] VITALS: BP 138/79
[2020-11-25 16:00] VITALS: BP 132/75
[2020-11-25 17:07] LABS: ALBUMIN, URINE RANDOM 30.6 % (.); ALPHA-1-GLOBULIN, URINE 3.2 % (.); ALPHA-2-GLOBULIN, URINE 25.9 % (.); GAMMA GLOBULIN, URINE 12.9 % (.); M-SPIKE % 18.9 % (Not Observed); PROTEIN,TOTAL - URINE RANDOM 283.4 mg/dL (Not Estab.)
[2020-11-25 20:00] VITALS: BP 144/73
[2020-11-26] VITALS: BP 153/63
[2020-11-26 06:17] LABS: ALBUMIN 1.9 gm/dl (3.1-4.5); POTASSIUM 3.9 mmol/L (3.5-5.1)
[2020-11-26 06:21] LABS: CREATININE 1.86 mg/dL (0.70-1.30); TOTAL PROTEIN 6.6 gm/dL (6.4-8.2)
[2020-11-26 08:00] VITALS: BP 119/71
[2020-11-26 16:00] VITALS: BP 117/69
[2020-11-26 20:00] VITALS: BP 97/69
[2020-11-27] VITALS: BP 147/91
[2020-11-27 07:32] LABS: CREATININE 1.69 mg/dL (0.70-1.30); POTASSIUM 3.8 mmol/L (3.5-5.1); TOTAL PROTEIN 6.7 gm/dL (6.4-8.2)
[2020-11-27 08:00] VITALS: BP 121/94
[2020-11-27 12:00] VITALS: BP 122/82
[2020-11-27 16:00] VITALS: BP 144/80
[2020-11-27 20:00] VITALS: BP 156/26; BP 156/54
[2020-11-28] VITALS: BP 155/73
[2020-11-28 06:23] LABS: BASO % 0.3 % (0.0-1.0); EOS # 0.3 10*3/uL (0.0-0.4); EOS % 3.7 % (1.0-4.0); HEMATOCRIT 33.5 % (42.0-52.0); LYMPH # 1.7 10*3/uL (1.3-4.4); LYMPH % 21.4 % (27.0-41.0); MEAN CELL VOLUME 82.9 fl (80.0-94.0); MEAN CORPUSCULAR HGB CONC 31.3 g/dl (33.0-37.0); MEAN PLATELET VOLUME 10.7 fl (9.6-12.3); MONO # 0.9 10*3/uL (0.1-1.0); MONO % 10.9 % (3.0-9.0); NEUT % 63.2 % (47.0-73.0); PLATELET COUNT AUTOMATED 410 10*3/uL (130-400); RED BLOOD COUNT 4.04 10*6/uL (4.50-5.90); RED CELL DISTRI WIDTH 16.5 % (0-14.5); WHITE BLOOD COUNT 7.9 10*3/uL (4.8-10.8)
[2020-11-28 06:44] LABS: CREATININE 1.56 mg/dL (0.70-1.30)
[2020-11-28 08:00] VITALS: BP 166/62
[2020-11-28 12:00] VITALS: BP 151/82
[2020-11-28] MEDS ORDERED: CARVEDILOL3.125 MG PO (13:14)
[2020-11-28] MEDS ORDERED: AUGMENTIN 875875 MG PO (13:14)
[2020-11-28 16:00] VITALS: BP 155/82
[2021-01-03 07:06] LABS: ACID FAST CULTURE Negative (.)
== END 2020-11-28 17:30 | DRG 870 ==
LOC: ED 08:04 → ICCU 09:15 → EDHOLD 09:15 → ICCU 11-14 08:12 → 4E 11-25 18:45
PROVIDERS: Emergency Medicine; Hospitalist; Internal Medicine; Internal Medicine Critical Care Medicine; Internal Medicine Nephrology; Specialist; Student in an Organized Health Care Education/Training Program; ADMIT Internal Medicine; ATTEND Internal Medicine
PROC: 5A1955Z Respiratory Ventilation, Greater than 96 Consecutive Hours (ICD-10-PCS; principal; 2020-11-13)
PROC: 0BH17EZ Insertion of Endotracheal Airway into Trachea, Via Natural or Artificial Opening (ICD-10-PCS; 2020-11-13)
PROC: 5A09357 Assistance with Respiratory Ventilation, Less than 24 Consecutive Hours, Continuous Positive Airway Pressure (ICD-10-PCS; 2020-11-13)
PROC: 0B9B8ZZ Drainage of Left Lower Lobe Bronchus, Via Natural or Artificial Opening Endoscopic (ICD-10-PCS; 2020-11-18)
PROC: 0B948ZZ Drainage of Right Upper Lobe Bronchus, Via Natural or Artificial Opening Endoscopic (ICD-10-PCS; 2020-11-18)
PROC: 0B988ZZ Drainage of Left Upper Lobe Bronchus, Via Natural or Artificial Opening Endoscopic (ICD-10-PCS; 2020-11-18)
PROC: 0B958ZZ Drainage of Right Middle Lobe Bronchus, Via Natural or Artificial Opening Endoscopic (ICD-10-PCS; 2020-11-18)
PROC: 0B938ZZ Drainage of Right Main Bronchus, Via Natural or Artificial Opening Endoscopic (ICD-10-PCS; 2020-11-18)
PROC: 0B978ZZ Drainage of Left Main Bronchus, Via Natural or Artificial Opening Endoscopic (ICD-10-PCS; 2020-11-18)
PROC: 0B9H8ZZ Drainage of Lung Lingula, Via Natural or Artificial Opening Endoscopic (ICD-10-PCS; 2020-11-18)
PROC: 0B968ZZ Drainage of Right Lower Lobe Bronchus, Via Natural or Artificial Opening Endoscopic (ICD-10-PCS; 2020-11-18)
PROC: 0B918ZZ Drainage of Trachea, Via Natural or Artificial Opening Endoscopic (ICD-10-PCS; 2020-11-18)
PROC: 5A09457 Assistance with Respiratory Ventilation, 24-96 Consecutive Hours, Continuous Positive Airway Pressure (ICD-10-PCS; 2020-11-22)
PROC: 5A09457 Assistance with Respiratory Ventilation, 24-96 Consecutive Hours, Continuous Positive Airway Pressure (ICD-10-PCS; 2020-11-24)
PROC: BD11YZZ Fluoroscopy of Esophagus using Other Contrast (ICD-10-PCS; 2020-11-25)
PROC: BD1BYZZ Fluoroscopy of Mouth/Oropharynx using Other Contrast (ICD-10-PCS; 2020-11-25)
DX: A41.9 Sepsis, unspecified organism (principal); I50.43 Acute on chronic combined systolic (congestive) and diastolic (congestive) heart failure; G93.41 Metabolic encephalopathy; N17.0 Acute kidney failure with tubular necrosis; J69.0 Pneumonitis due to inhalation of food and vomit; J96.21 Acute and chronic respiratory failure with hypoxia; J96.22 Acute and chronic respiratory failure with hypercapnia; E87.3 Alkalosis; I13.0 Hypertensive heart and chronic kidney disease with heart failure and stage 1 through stage 4 chronic kidney disease, or unspecified chronic kidney disease; E87.2 Acidosis; J44.0 Chronic obstructive pulmonary disease with (acute) lower respiratory infection; B17.9 Acute viral hepatitis, unspecified; N18.32 Chronic kidney disease, stage 3b; E11.65 Type 2 diabetes mellitus with hyperglycemia; K21.9 Gastro-esophageal reflux disease without esophagitis; G47.33 Obstructive sleep apnea (adult) (pediatric); E66.01 Morbid (severe) obesity due to excess calories; I25.10 Atherosclerotic heart disease of native coronary artery without angina pectoris; E78.00 Pure hypercholesterolemia, unspecified; L89.899 Pressure ulcer of other site, unspecified stage; E11.22 Type 2 diabetes mellitus with diabetic chronic kidney disease; E11.42 Type 2 diabetes mellitus with diabetic polyneuropathy; D64.9 Anemia, unspecified; R74.01 Elevation of levels of liver transaminase levels; Z99.81 Dependence on supplemental oxygen; Z83.3 Family history of diabetes mellitus; Z79.4 Long term (current) use of insulin; Z82.3 Family history of stroke; Z79.899 Other long term (current) drug therapy; Z20.822 Contact with and (suspected) exposure to COVID-19

== ENCOUNTER 2024-11-15 02:09 | Inpatient (IN) | payer OTHER ==
[~2024-11-15] VITALS: Ht 177.8 cm; Wt 132.0 kg
[~2024-11-15 02:09] MED LIST changes: +ADV 500/50 INH; +AMLODIPINE BESY10 MG PO; +AMLODIPINE BESYL5 MG PO; +ASPIRIN ADULT L81 M2 PO; +ATENOLOL25 MG PO; +AUGMENTIN 875875 MG PO; +CARVEDILOL3.125 MG PO; +COREG12.5 M1 PO; +CYMBALTA20 M1 PO; +DEPAKOTE ER500 MG PO; +ENALAPRIL20 MG PO; +MEMANTINE HCL5 MG PO; +NEXIUM 24HR20 M2 PO; +NORVASC10 MG PO; +NUVIGIL50 MG PO; +OZEMPIC1 MG/0.75 SQ; +SENNA8.6 MG PO; +VIBRA-TAB100 MG PO; +VOLTAREN ARTHRI20 GM T
[2024-11-15 02:18] VITALS: BP 161/77
[2024-11-15 02:35] LABS: BASO % 0.1 % (0.0-1.0); EOS # 0.2 10*3/uL (0.0-0.4); EOS % 2.5 % (1.0-4.0); HEMATOCRIT 27.8 % (42.0-52.0); MEAN CELL VOLUME 84.5 fl (80.0-94.0); MEAN CORPUSCULAR HGB 27.1 pg (27.0-31.0); MEAN PLATELET VOLUME 9.4 fl (9.6-12.3); MONO % 13.7 % (3.0-9.0); NEUT # 4.5 10*3/uL (2.3-7.9); NEUT % 60.6 % (47.0-73.0); PLATELET COUNT AUTOMATED 180 10*3/uL (130-400); RED BLOOD COUNT 3.29 10*6/uL (4.50-5.90); WHITE BLOOD COUNT 7.5 10*3/uL (4.8-10.8)
[2024-11-15 02:47] LABS: ACT PARTIAL THROMBO TIME 35.7 SECONDS (20.0-32.1)
[2024-11-15 02:56] LABS: ALKALINE PHOSPHATASE 39 U/L (46-116); BUN 52 mg/dl (9-23); CHLORIDE 104 mmol/L (98-107); LDH 222 U/L (120-246); LIPASE 22 U/L (12-53); POTASSIUM 4.3 mmol/L (3.4-5.1); TOTAL PROTEIN 7.2 gm/dL (6.0-8.0)
[2024-11-15 02:57] LABS: SGPT/ALT < 7 U/L (5-49)
[2024-11-15 03:24] LABS: BILIRUBIN Negative (Negative); BLOOD Negative (Negative); CLARITY Clear (Clear); COLOR Yellow (Yellow); GLUCOSE Negative (Negative); KETONE Negative (Negative); LEUKO ESTERASE Negative (Negative); NITRITE Negative (Negative); PH 6.5 (4.5-8.0); UROBILINOGEN 0.2 E.U./dl (0.0-1.0)
[2024-11-15 03:42] LABS: RBC 0-2 rbc/hpf (0-2); WBC 0-2 wbc/hpf (0-5)
[2024-11-15 03:43] LABS: BACTERIA TRACE
[2024-11-15] MEDS ORDERED: AZITHROMYCIN 250 MG TAB PO ONE (06:20)
[2024-11-15] MEDS ORDERED: cefTRIAXone Sodium 1 GM/10 ML SYR IV ONE (06:20)
[2024-11-15 08:00] VITALS: BP 153/68
[2024-11-15] MEDS ORDERED: Ondansetron Hydrochloride 4 MG/2 ML VIAL IV PRN (09:15)
[2024-11-15] MEDS ORDERED: Magnesium Hydroxide 30 ML UDC PO PRN (09:15)
[2024-11-15] MEDS ORDERED: TEMAZEPAM 15 MG CAP PO PRN (09:15)
[2024-11-15] MEDS ORDERED: BISACODYL 5 MG TAB PO PRN (09:15)
[2024-11-15] MEDS ORDERED: ACETAMINOPHEN 325 MG TAB PO PRN (09:15)
[2024-11-15] MEDS ORDERED: BISACODYL 10 MG SUPP R PRN (09:15)
[2024-11-15] MEDS ORDERED: ACETAMINOPHEN 650 MG SUPP R PRN (09:15)
[2024-11-15] MEDS ORDERED: DEXTROSE 10 % IN WATER 250 ML IV PRN (11:50)
[2024-11-15] MEDS ORDERED: Technetium Tc 99M MacroAg Albu 1 KIT KIT IV SCH ×2 (12:20→13:50)
[2024-11-15] MEDS ORDERED: Technetium Tc 99M Pentetate 1 KIT KIT IV SCH (13:50)
[2024-11-15] MEDS ORDERED: methylPREDNISolone sod succ 40 MG VIAL IV SCH (14:28)
[2024-11-15] MEDS ORDERED: SODIUM CHLORIDE 0.9% 10 ML VIAL ONE (14:28)
[2024-11-15] MEDS ORDERED: Albuterol Sulf/Ipratropium 3 ML VIAL NEB SCH (14:30)
[2024-11-15 16:00] VITALS: BP 154/76
[2024-11-15] MEDS ORDERED: PIPERACILLIN SODIUM/TAZOBACTAM 2.25 GM in SODIUM CHLORIDE 0.9% 50 ML IV SCH ×2 (16:00→21:00)
[2024-11-15] MEDS ORDERED: INSULIN LISPRO 1 UNIT/0.01 ML SQ SCH (16:30)
[2024-11-15 18:30] VITALS: BP 183/90
[2024-11-15 20:00] VITALS: BP 154/76; BP 179/82
[2024-11-15] MEDS ORDERED: VANCOMYCIN/WATER FOR INJ (PEG) 400 ML IV SCH ×2 (20:00→22:00)
[2024-11-15] MEDS ORDERED: DIVALPROEX ER 500 MG TAB PO SCH (22:00)
[2024-11-15] MEDS ORDERED: CARVEDILOL 12.5 MG TAB PO SCH (22:00)
[2024-11-15] MEDS ORDERED: Memantine Hydrochloride 5 MG TAB PO SCH (22:00)
[2024-11-15] MEDS ORDERED: GUAIFENESIN 600 MG TAB ER PO SCH (22:00)
[2024-11-16] VITALS: BP 174/83
[2024-11-16] MEDS ORDERED: Labetalol Hydrochloride 20 MG/4 ML SYR IV ONE (02:10)
[2024-11-16 05:42] VITALS: BP 152/86
[2024-11-16] MEDS ORDERED: OMEPRAZOLE 20 MG CAP PO SCH (06:00)
[2024-11-16 06:18] LABS: BASO % 0.4 % (0.0-1.0); EOS # 0.1 10*3/uL (0.0-0.4); HEMATOCRIT 34.4 % (42.0-52.0); MEAN CELL VOLUME 86.4 fl (80.0-94.0); MEAN CORPUSCULAR HGB 27.1 pg (27.0-31.0); MEAN CORPUSCULAR HGB CONC 31.4 g/dl (33.0-37.0); MEAN PLATELET VOLUME 10.8 fl (9.6-12.3); MONO # 0.6 10*3/uL (0.1-1.0); MONO % 7.4 % (3.0-9.0); NEUT # 6.5 10*3/uL (2.3-7.9); NEUT % 78.2 % (47.0-73.0); PLATELET COUNT AUTOMATED 219 10*3/uL (130-400); RED BLOOD COUNT 3.98 10*6/uL (4.50-5.90); WHITE BLOOD COUNT 8.3 10*3/uL (4.8-10.8)
[2024-11-16 06:46] LABS: ALKALINE PHOSPHATASE 44 U/L (46-116); BUN 44 mg/dl (9-23); CHLORIDE 104 mmol/L (98-107); FREE T4 0.89 ng/dl (0.89-1.76); POTASSIUM 4.7 mmol/L (3.4-5.1); TOTAL PROTEIN 7.7 gm/dL (6.0-8.0)
[2024-11-16 06:59] LABS: SGPT/ALT < 7 U/L (5-49)
[2024-11-16 08:00] VITALS: BP 127/89
[2024-11-16] MEDS ORDERED: Cholecalciferol 5,000 IU CAP (125 MCG) PO SCH (10:00)
[2024-11-16] MEDS ORDERED: Enoxaparin Sodium 40 MG/0.4 ML SYR SC SCH (10:00)
[2024-11-16] MEDS ORDERED: FUROSEMIDE 40 MG TAB PO SCH (10:00)
[2024-11-16] MEDS ORDERED: NUVIGIL 250 MG PO SCH (10:00)
[2024-11-16] MEDS ORDERED: ASPIRIN ENTERIC COATED 81 MG TAB PO SCH (10:00)
[2024-11-16] MEDS ORDERED: DULOXETINE HYDROCHLORIDE 20 MG PO SCH (10:00)
[2024-11-16] MEDS ORDERED: Insulin Glargine, Recombinan 1 UNIT/0.01 ML SC SCH (10:00)
[2024-11-16 12:00] VITALS: BP 122/81
[2024-11-16] MEDS ORDERED: MUPIROCIN 15 GM TUBE T SCH (13:10)
[2024-11-16] MEDS ORDERED: HEEL PROTECTOR DEVICE ONE (14:22)
[2024-11-16 16:00] VITALS: BP 165/80
[2024-11-16 20:00] VITALS: BP 185/86
[2024-11-17] VITALS: BP 149/85
[2024-11-17 06:24] LABS: BASO % 0.2 % (0.0-1.0); HEMATOCRIT 33.7 % (42.0-52.0); MEAN CELL VOLUME 85.8 fl (80.0-94.0); MEAN CORPUSCULAR HGB CONC 31.5 g/dl (33.0-37.0); MEAN PLATELET VOLUME 10.5 fl (9.6-12.3); MONO # 0.5 10*3/uL (0.1-1.0); MONO % 4.7 % (3.0-9.0); NEUT # 8.1 10*3/uL (2.3-7.9); NEUT % 81.9 % (47.0-73.0); PLATELET COUNT AUTOMATED 271 10*3/uL (130-400); RED BLOOD COUNT 3.93 10*6/uL (4.50-5.90); WHITE BLOOD COUNT 9.9 10*3/uL (4.8-10.8)
[2024-11-17 06:48] LABS: POTASSIUM 4.9 mmol/L (3.4-5.1)
[2024-11-17 08:00] VITALS: BP 176/93
[2024-11-17 12:00] VITALS: BP 177/80
[2024-11-17] MEDS ORDERED: hydrALAZINE hydrochloride 10 MG TAB PO SCH (14:00)
[2024-11-17 20:00] VITALS: BP 152/88
[2024-11-18] VITALS: BP 156/79
[2024-11-18 06:13] LABS: BASO % 0.1 % (0.0-1.0); HEMATOCRIT 30.9 % (42.0-52.0); MEAN CORPUSCULAR HGB 26.9 pg (27.0-31.0); MEAN PLATELET VOLUME 10.2 fl (9.6-12.3); MONO # 0.5 10*3/uL (0.1-1.0); MONO % 5.7 % (3.0-9.0); NEUT # 6.8 10*3/uL (2.3-7.9); NEUT % 79.4 % (47.0-73.0); PLATELET COUNT AUTOMATED 262 10*3/uL (130-400); RED BLOOD COUNT 3.68 10*6/uL (4.50-5.90); RED CELL DISTRI WIDTH 17.1 % (0-14.5); WHITE BLOOD COUNT 8.6 10*3/uL (4.8-10.8)
[2024-11-18 06:32] LABS: POTASSIUM 4.5 mmol/L (3.4-5.1)
[2024-11-18 08:00] VITALS: BP 144/97
[2024-11-18] MEDS ORDERED: VANCOMYCIN/WATER FOR INJ (PEG) 250 ML IV SCH (10:00)
[2024-11-18 12:00] VITALS: BP 163/70
[2024-11-18 16:00] VITALS: BP 151/75
[2024-11-18] MEDS ORDERED: cefTRIAXone Sodium 1 GM in SYRINGE INFUSION 10 ML IV SCH (17:00)
[2024-11-18] MEDS ORDERED: Doxycycline Hyclate 100 MG in SODIUM CHLORIDE 0.9% 250 ML IV SCH (18:00)
[2024-11-18 20:00] VITALS: BP 154/76
[2024-11-19] VITALS: BP 145/83; BP 92/55
[2024-11-19 06:16] LABS: POTASSIUM 4.4 mmol/L (3.4-5.1)
[2024-11-19 06:37] LABS: BASO % 0.1 % (0.0-1.0); EOS % 0.1 % (1.0-4.0); HEMATOCRIT 30.6 % (42.0-52.0); MEAN CELL VOLUME 84.1 fl (80.0-94.0); MEAN CORPUSCULAR HGB 27.5 pg (27.0-31.0); MEAN CORPUSCULAR HGB CONC 32.7 g/dl (33.0-37.0); MEAN PLATELET VOLUME 10.6 fl (9.6-12.3); MONO # 1.1 10*3/uL (0.1-1.0); MONO % 10.9 % (3.0-9.0); NEUT # 6.5 10*3/uL (2.3-7.9); NEUT % 64.8 % (47.0-73.0); NUCLEATED RED BLOOD CELL 0.2 % (0.0-0.0); PLATELET COUNT AUTOMATED 284 10*3/uL (130-400); RED BLOOD COUNT 3.64 10*6/uL (4.50-5.90); RED CELL DISTRI WIDTH 16.9 % (0-14.5)
[2024-11-19 08:00] VITALS: BP 168/85
[2024-11-19] MEDS ORDERED: APRESOLINE10 MG PO (10:58)
[2024-11-19] MEDS ORDERED: OMNICEF300 MG PO (10:58)
[2024-11-19] MEDS ORDERED: VIBRAMYCIN100 MG PO (10:58)
== END 2024-11-19 13:56 | DRG 177 ==
LOC: ED 02:09 → EDHOLD 07:10 → 4E 07:10 → EDHOLD 09:18 → 4E 16:28
PROVIDERS: Emergency Medicine; ADMIT Family Medicine; ATTEND Family Medicine
DX: J69.0 Pneumonitis due to inhalation of food and vomit (principal); G93.41 Metabolic encephalopathy; E44.0 Moderate protein-calorie malnutrition; L03.115 Cellulitis of right lower limb; N13.30 Unspecified hydronephrosis; J44.1 Chronic obstructive pulmonary disease with (acute) exacerbation; J96.11 Chronic respiratory failure with hypoxia; I50.32 Chronic diastolic (congestive) heart failure; I13.0 Hypertensive heart and chronic kidney disease with heart failure and stage 1 through stage 4 chronic kidney disease, or unspecified chronic kidney disease; Z68.42 Body mass index [BMI] 45.0-49.9, adult; N18.32 Chronic kidney disease, stage 3b; R33.9 Retention of urine, unspecified; R70.0 Elevated erythrocyte sedimentation rate; D50.9 Iron deficiency anemia, unspecified; I25.10 Atherosclerotic heart disease of native coronary artery without angina pectoris; G47.33 Obstructive sleep apnea (adult) (pediatric); E11.65 Type 2 diabetes mellitus with hyperglycemia; E78.00 Pure hypercholesterolemia, unspecified; K21.9 Gastro-esophageal reflux disease without esophagitis; D47.2 Monoclonal gammopathy; G30.9 Alzheimer's disease, unspecified; F02.80 Dementia in other diseases classified elsewhere, unspecified severity, without behavioral disturbance, psychotic disturbance, mood disturbance, and anxiety; E55.9 Vitamin D deficiency, unspecified; E11.22 Type 2 diabetes mellitus with diabetic chronic kidney disease; Z20.822 Contact with and (suspected) exposure to COVID-19; E11.40 Type 2 diabetes mellitus with diabetic neuropathy, unspecified; E66.01 Morbid (severe) obesity due to excess calories; Z79.4 Long term (current) use of insulin; Z82.3 Family history of stroke; Z83.3 Family history of diabetes mellitus; Z79.82 Long term (current) use of aspirin; Z79.899 Other long term (current) drug therapy

== ENCOUNTER 2025-02-07 00:23 | Emergency (ER) | payer OTHER ==
[~2025-02-07] VITALS: Ht 177.8 cm; Wt 127.5 kg
[~2025-02-07 00:23] MED LIST changes: +APRESOLINE10 MG PO; +OMNICEF300 MG PO
[2025-02-07 00:42] LABS: BASO % 0.7 % (0.0-1.0); EOS # 0.2 10*3/uL (0.0-0.4); EOS % 2.8 % (1.0-4.0); HEMATOCRIT 30.7 % (42.0-52.0); MEAN CORPUSCULAR HGB 27.8 pg (27.0-31.0); MEAN CORPUSCULAR HGB CONC 31.9 g/dl (33.0-37.0); MEAN PLATELET VOLUME 9.8 fl (9.6-12.3); MONO # 0.8 10*3/uL (0.1-1.0); MONO % 12.5 % (3.0-9.0); NEUT # 2.8 10*3/uL (2.3-7.9); NEUT % 47.2 % (47.0-73.0); PLATELET COUNT AUTOMATED 185 10*3/uL (130-400); RED BLOOD COUNT 3.53 10*6/uL (4.50-5.90); RED CELL DISTRI WIDTH 15.8 % (0-14.5)
[2025-02-07 01:01] LABS: POTASSIUM 4.1 mmol/L (3.4-5.1)
[2025-02-07] MEDS ORDERED: NOVOLOG FL100 UNIT/2 SC (01:20)
[2025-02-07] MEDS ORDERED: APRESOLINE10 MG PO (01:21)
[2025-02-07] MEDS ORDERED: FLOMAX0.4 MG PO (01:23)
[2025-02-07] MEDS ORDERED: IRON325 M1 PO (01:24)
[2025-02-07] MEDS ORDERED: LANTUS100 UNIT/1 SQ (01:25)
[2025-02-07] MEDS ORDERED: ADT ROBITUSSIN237 M1 PO (01:27)
[2025-02-07] MEDS ORDERED: BUMETANIDE 1 MG/4 ML VIAL IV ONE (01:50)
[2025-02-07] MEDS ORDERED: hydrALAZINE hydrochloride 20 MG/ML VIAL IV ONE (01:50)
[2025-02-07 02:47] VITALS: BP 165/73
== END 2025-02-07 03:36 ==
LOC: ED 00:23
PROVIDERS: Internal Medicine
DX: I16.0 Hypertensive urgency (principal); N17.9 Acute kidney failure, unspecified; I13.0 Hypertensive heart and chronic kidney disease with heart failure and stage 1 through stage 4 chronic kidney disease, or unspecified chronic kidney disease; I50.9 Heart failure, unspecified; E11.22 Type 2 diabetes mellitus with diabetic chronic kidney disease; N18.9 Chronic kidney disease, unspecified; E87.29 Other acidosis; D64.9 Anemia, unspecified; R60.0 Localized edema; Z79.899 Other long term (current) drug therapy; Z79.82 Long term (current) use of aspirin; Z79.4 Long term (current) use of insulin; Z90.89 Acquired absence of other organs